=== PATIENT | female | born 1985 | race Caucasian/White ===

== ENCOUNTER 2020-02-21 21:19 | Emergency (ER) | payer OTHER, MEDICAID, SELFPAY ==
[2020-02-21] VITALS (10 sets, daily range): BP systolic 119–149; BP diastolic 78–97; PULSE 99–126; RESP 13–26; TEMP 37.2; O2SAT 96–98
--- NOTE | ~2020-02-21 | XR_ITS ---
EXAMINATION: XR chest 2V EXAM DATE: 02/21/2020 22:40 INDICATION: Shortness of breath. TECHNIQUE: Frontal and lateral projections of the chest obtained and reviewed. Comparison is made to prior examination from 09/06/2018. FINDINGS: There is no focal air space disease. There are no pleural effusions. The cardiothymic herbert houette is normal. There is no pneumothorax. There are no osseous or soft tissue abnormalities in t his skeletally immature patient. Lungs have normal volume. IMPRESSION: No acute cardiopulmonary findings. Reviewed, dictated and finalized at location G.
--- NOTE | 2020-02-21 21:50 | ECG_ITS ---
Measurements Intervals Twining Rate: 129 P: 55 OH: 143 QRS: 30 QRSD: 94 T: 25 QT: 296 QTc: 435 Interpretive Statements SINUS TACHYCARDIA MINIMAL Q WAVES- INF/LAT LEADS BASELINE WANDER- I, III, V4-V6 ABNORMAL ECG Electronically Signed On 02-22-2020 7:17:17 CDT by Armin Zheng D.O.
[2020-02-21 22:07] LABS: Basophils Percent Auto 0.3 % (0.2-1.2); Eosinophils Absolute Auto 0.1 K/mm3 (0-0.3); Eosinophils Percent Auto 1.1 % (0-4.4); Hematocrit 39.9 % (37.0-47.0); Hemoglobin 13.6 g/dL (12.0-15.0); Immature Granulocyte Absolute 0.06 K/mm3 (0.00-0.031); Immature Granulocyte Percent A 0.5 % (0-0.5); Lymphocytes Percent Auto 8.3 % (18.3-44.2); Mean Corpuscular HGB Conc 34.1 g/dl (32-36); Mean Corpuscular Hemoglobin 29.6 pg (26-34); Mean Corpuscular Volume 86.9 fl (80-100); Monocytes Absolute Auto 0.4 K/mm3 (0.1-0.6); Monocytes Percent Auto 3.2 % (2.6-8.5); Neutrophils Absolute Auto 10.5 K/mm3 (1.3-6.7); Neutrophils Percent Auto 86.6 % (45.5-73.1); Platelet Count Result 323 k/mm3 (150-375); Red Blood Count 4.59 M/mm3 (4.2-5.4); Red Cell Distribution Width 13.1 % (11.5-14.5); White Blood Count 12.1 K/mm3 (4.5-10.0)
[2020-02-21 22:25] LABS: Alanine Aminotransferase 22 U/L (4-35); Albumin Level 4.6 g/dL (3.5-5.1); Alkaline Phosphatase 102 U/L (38-126); Aspartate Amino Transferase 22 U/L (14-36); Bilirubin,Total 0.2 mg/dL (0.2-1.3); Blood Urea Nitrogen 11 mg/dL (7-17); Calcium 9.6 mg/dL (8.4-10.2); Carbon Dioxide 20 mmol/L (22-30); Chloride 105 mmol/L (98-107); Estimated CRCL calculation 158 ml/min; Estimated Glomerular Filt Rate > 60; Glucose 143 mg/dL (65-105); Sodium 137 mmol/L (137-145)
[2020-02-21 23:01] LABS: D Dimer < 0.22 ug/mL (<0.48)
[2020-02-21] MEDS: ALBUTEROL SULFATE NEB 2.5 MG/0.5 ML INH 5 MG INHALATION (23:20)
[2020-02-21] MEDS: IPRATROPIUM BR 0.02% INH SOLN 0.5 MG/2.5 ML VIAL INHALATION (23:21)
[2020-02-21] MEDS: predniSONE 20 MG TABLET 60 MG PO (23:29)
[2020-02-21 23:33] LABS: Troponin I < 0.012 ng/mL (0.000-0.034)
--- NOTE | 2020-02-21 23:57 | ED.SOB ---
HPI - SOB/Dyspnea General Chief Complaint: Shortness of Breath/Dyspnea Stated Complaint: sob Time Seen by Provider: 02/21/20 21:22 Source: patient History of Present Illness HPI Narrative: Pt c/o sob, started 4 days ago accompanied by chest tightness. Pt state she has has a h/o ashtma. Denies fever. Exacerbating factors: nothing Relieving factors: nothing Known history of: asthma Treatment prior to arrival: none Related Data Home oxygen amount: none Home Medications Medication Instructions Recorded Confirmed duloxetine 30 mg capsule,delayed 30 mg PO DAILY 09/28/19 09/28/19 release duloxetine 60 mg capsule,delayed 60 mg PO DAILY 09/28/19 09/28/19 release lamotrigine 100 mg tablet 100 mg PO DAILY 09/28/19 09/28/19 modafinil 100 mg tablet 200 mg PO QAM tablet 09/28/19 09/28/19 Allergies Allergy/AdvReac Type Severity Reaction Status Date / Time No Known Allergies Allergy Verified 09/28/19 13:48 Review of Systems Review of Systems: All systems reviewed & are unremarkable except as noted in HPI and below Constitutional: Constitutional: Denies body ache(s), Denies chills, Denies excessive sweating, Denies fatigue, Denies fever(s), Denies headache(s), Denies lethargy, Denies malaise, Denies weakness and Denies weight loss Eyes: Eyes: Denies blurry vision, Denies change in vision and Denies loss of vision ENT: Denies dizziness, Denies ear discharge, Denies headache(s), Denies lip swelling, Denies epistaxis, Denies nasal congestion, Denies neck pain, Denies throat swelling and Denies tongue swelling Cardiovascular: Cardiovascular: Denies chest pain, Denies chest pain at rest, Denies chest pain with activity, Denies diaphoresis, Denies rapid heart rate, Denies edema, Denies irregular heart rhythm, Denies lightheadedness, Denies palpitations, Denies dyspnea and Denies dyspnea on exertion Respiratory: Respiratory: Denies chest congestion, Denies cough and Denies hemoptysis Gastrointestinal: Gastrointestinal: Denies abdominal pain, Denies melena, Denies hematochezia, Denies diarrhea, Denies nausea, Denies vomiting and Denies hematemesis Musculoskeletal: Musculoskeletal: Denies abnormal gait, Denies deformity, Denies joint swelling, Denies limited range of motion, Denies neck pain and Denies numbness Neurologic: Denies Abnormal speech present, Denies abnormal gait, Denies confusion, Denies dizziness, Denies headache(s), Denies focal weakness, Denies loss of vision, Denies numbness, Denies Other visual disturbances, Denies Sensory deficit (Neuro) and Denies weakness Psychiatric: Psychiatric: Denies confusion, Denies depression, Denies auditory hallucinations, Denies homicidal ideation and Denies suicidal ideation Endocrine: Endocrine: Denies cold intolerance, Denies excessive sweating, Denies fatigue, Denies heat intolerance and Denies palpitations Hematologic/Lymphatic: Hematologic/Lymphatic: Denies easy bleeding and Denies easy bruising Allergic/Immunologic: Allergic/Immunologic: Denies lip swelling, Denies throat swelling and Denies tongue swelling PMFSH Past Medical History Medical History (Updated 02/22/20 @ 00:02 by Raza Ceron MD) Acid reflux Anxiety Bipolar 1 disorder Carpal tunnel syndrome Depression Family History Family History (Updated 06/22/14 @ 07:13 by DOCTOR UNKNOWN) Mother Hypertension Grandparent Asthma Cerebrovascular accident Family history of heart disease in male family member before age 55 Social History Social History Smoking status: Former smoker Smoking end date: 10/26/12 Alcohol intake: never Gender identity (if verbalized by the patient): Female Exam Const: General: cooperative, healthy appearing, comfortable, no acute distress, well developed, alert and awake; No confusion Orientation/consciousness: oriented to person, oriented to place, oriented to time, patient oriented x3 and No confusion [place]
[2020-02-22 00:01] VITALS: BP 125/78; PULSE 100
== END 2020-02-22 00:29 | disposition home or self-care (01) ==
PROVIDERS: Emergency Provider Emergency Medicine; PCP Nurse Practitioner Family
DX: J45.901 Unspecified asthma with (acute) exacerbation (principal); Z87.891 Personal history of nicotine dependence; K21.9 Gastro-esophageal reflux disease without esophagitis; F41.9 Anxiety disorder, unspecified; F31.9 Bipolar disorder, unspecified
CPT/HCPCS: 36415; 71046; 80053; 81025; 84484; 85025; 85380; 93005; 94640; 99284; J7512

== ENCOUNTER 2020-08-21 17:15 | Outpatient (RCR) | payer OTHER, SELFPAY ==
--- NOTE | 2020-08-10 09:09 | PTOPEVAL ---
PHYSICAL THERAPY EVALUATION AND PLAN OF CARE 08-10-2020 Thank you for referring Yi Mendiola to [facility], for the diagnosis of low back pain She is scheduled to be seen for therapy?2 x/week for 3 weeks. Please review, sign, date and return this plan of care LIZETT. I agree with and certify that the following plan of care is medically necessary. Referring Physician Date Attending Provider: Janine Montaño NP *PT Outpatient Evaluation Document 08/10/20 08:10 EBONY (Rec: 08/10/20 09:09 EBONY [id number]) Outpatient Past Medical History Past Medical History Source of Past Medical History Patient Neurological History Hx Other Neurological Disorders Yes: headaches every other day ,take meds-over counter Cardiovascular History Hx Cardiac Disorders No Significant History Respiratory History Hx Asthma Yes: allergy related- sensitive to cold weather Gastrointestinal History Hx Gastroesophageal Reflux Disease Yes: upper GI with throat surgery due to scarring Genitourinary History Hx Genitourinary Disorders No Significant History Musculoskeletal History Hx Back Pain Yes: chronic sciatic pain Hx Other Musculoskeletal Disorders Yes: obesity Endocrine History Hx Diabetes Yes: borderline- monitoring, no meds HEENT History Hx HEENT Disorders No Significant History Reproductive History Hx Section Yes: x2 Evaluation Information Problem Diagnosis low back pain Onset January 09, 2020 Subjective Information chronic back pain with Query Text:As Reported By Patient/ sciatica, increased in December, with more standing is worse; no recent injury to back or trauma; Diagnostic Tests X-Rays For This Problem No MRI For This Problem No Other Tests For This Problem No Previous Treatments Previous Treatments For This Problem no PT for back Prior Level of Function Activity Level (Last 3 Months) 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
--- NOTE | 2020-08-17 13:41 | PCPTNOTE ---
pt did not show for today's appt, called pt and left her a voice mail reminder of next appt;
--- NOTE | 2020-08-24 14:25 | PCPTNOTE ---
Patient called & cancelled scheduled appointment this date due to being to busy to make it here today or next visit.
--- NOTE | 2020-08-31 12:49 | PCPTNOTE ---
pt did not show for today's reevaluation; called pt and left voicemail;
--- NOTE | 2020-09-18 08:49 | PCPTNOTE ---
PHYSICAL THERAPY DISCHARGE 09-18-2020 Attending Provider: Janine Montaño NP Patient:Yi Mendiola Date of :1985 Ms. Mendiola has not returned for any further treatments since the PT evaluation on 08/21/2020, therefore she will be discharged at this time. The goals were not addressed. Thank you for referring Yi to [facility]. Please review, sign, date and return this discharge summary LIZETT. I have been updated about the patient's current status and I agree with discharge from the above service at this time. Referring Physician Date
== END 2020-09-18 11:12 | disposition home or self-care (01) ==
LOC: ANHPT 17:15
PROVIDERS: PCP Nurse Practitioner Family; Visit Provider Nurse Practitioner Family
DX: M54.5 Low back pain (principal)
CPT/HCPCS: 97161

== ENCOUNTER 2020-10-12 17:01 | Outpatient (CLI) | payer OTHER, SELFPAY ==
--- NOTE | ~2020-10-12 | XR_ITS ---
EXAMINATION: XR chest 2V 10/12/2020 17:18 INDICATION: Cough and midsternal chest pain PROCEDURE: 2 view chest COMPARISON: Comparison to multiple prior studies sequentially, with oldest reviewed study dated 09/26. FINDINGS: The lungs are clear. The cardiomediastinal silhouette is within normal limits. There are no pleural effusions. There is no pneumothorax suspected. IMPRESSION: 1: NO ACUTE CARDIOPULMONARY DISEASE. Reviewed, dictated and finalized at location A. 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
== END 2020-10-12 17:02 | disposition home or self-care (01) ==
PROVIDERS: PCP Nurse Practitioner Family; Visit Provider Nurse Practitioner Family
DX: R05 Cough (principal)
CPT/HCPCS: 71046

== ENCOUNTER 2021-06-03 10:00 | Outpatient (RCR) | payer OTHER, SELFPAY ==
--- NOTE | 2021-04-26 10:07 | PTOPEVAL ---
Thank you for referring Yi Mendiola to [facility].? The patient is scheduled to be seen for therapy? 1 x/week for 5 weeks. Please review, sign, date and return this plan of care LIZETT. I agree with and certify that the following plan of care is medically necessary. Referring Physician Date Attending Provider: Janine Montaño, [employer] Problem Diagnosis low back pain Onset 1 yr Subjective Information Gradual increase of back pain Query Text:As Reported By Patient/ for the past year. She reports Family increased pain with walking, standing and lifting task. Her tolerance with zigzag stitcher varies. She requires multiple rest due to pain. She has increased pain with yard work as well. Does not perform a walking or stretching program. She is not working. Diagnostic Tests X-Rays For This Problem Yes: mild OA at L4 region Previous Treatments Previous Treatments For This Problem no Pain Assessment Self Report Pain Assessment Lower Back Reported Pain Level 1 Pain Description Cramping,Sharp,Tightness Pain Frequency Chronic,Continuous Lowest Pain Intensity 1 Greatest Pain Intensity 9 Pain Aggravating Factors ADL's,Bending,Exercise/ Activity,Lifting,Walking, Weight Bearing/Standing Cervical and Lumbar ROM Lumbar ROM Lumbar Flexion Active Ankle:Hands to: Lateral Flexion distal thigh [place]:Active Hands to: Lumbar Comments 100% trunk ext tightness with all trunk motion Lower Extremity Range of Motion General Lower Extremity Range of Motion Reason Not Measured WNL/Left,WNL/Right Cervical and Lumbar Muscle Testing Lumbar Strength Upper Abdominal Strength 3 Fair Lower Abdominal Strength 2 Poor Upper Back Extension 3+Fair+ Lower Back Extension 3+Fair+ Lower Extremity Muscle Strength Testing General Lower Extremity Strength Gross Lower Extremity Strength grossly 5/5 except [place] hip abduction: 3+/5 Muscle Length Testing Muscle Length Testing Two-Joint Hip Flexor Shortened Muscles Short (R) Iliopsoas,Short (L) Iliopsoas,Short (R) Rectus Femoris,Short (L) Rectus Femoris,Short (R) Ilial Tib Band,Short (L) Ilial Tib Band Piriformis w/Hip Flexion <90 Degrees (R) Moderate Tightness,(L) Modera
--- NOTE | 2021-05-15 13:42 | PCPTNOTE ---
Patient called & cancelled scheduled appointment this date due to having a Dr's appointment.
--- NOTE | 2021-05-21 13:21 | PCPTNOTE ---
Patient did not show up for scheduled appointment this date. Called and had to leave a message.
--- NOTE | 2021-05-29 12:51 | PCPTNOTE ---
Patient did not show for appointment this date. Patient called on cell phone number [phone]. Voice message left to contact therapy department to try and reschedule appointment.
--- NOTE | 2021-06-03 10:34 | PCPTNOTE ---
Admitting Provider: Attending Provider: Janine Montaño, LINOTYPE MECHANIC Patient:Yi Mendiola Date of :1985 Discharge Note Patient has not returned for any further treatments since 05/08/2021, therefore she will be discharged at this time. Patient?s initial visit was on 04/26/2021 09:00 and she had a total of 2 visits with 4 no show/cancelled visits. The goals have been not met due to limited therapy visits attended. Thank you for referring this patient to [facility]. Please review, sign, date and return this discharge summary LIZETT. I have been updated about the patient's current status and I agree with discharge from the above service at this time. Referring Physician Date
== END 2021-07-10 09:15 | disposition home or self-care (01) ==
LOC: ANHPT 10:00
PROVIDERS: PCP Nurse Practitioner Family; Visit Provider Nurse Practitioner Family
DX: M54.5 Low back pain (principal)
CPT/HCPCS: 97110; 97161

== ENCOUNTER 2021-09-07 13:51 | Emergency (ER) | payer OTHER, SELFPAY ==
[2021-09-07 14:01] VITALS: BP 137/92; PULSE 106; RESP 16; TEMP 37.4; O2SAT 100
--- NOTE | 2021-09-07 14:03 | ED.URI ---
HPI - URI/Sore Throat General Chief Complaint: Upper Respiratory Infection Stated Complaint: Sore Throat Time Seen by Provider: 09/07/21 14:03 Source: patient and RN notes reviewed Mode of arrival: ambulatory Limitations: no limitations History of Present Illness HPI Narrative: Kyung is a 35-year-old female patient who ambulated into the [facility]. Patient states she was treated last , 09/05/2021 for sore throat at another facility. Patient was prescribed prednisone, viscous lidocaine, and ibuprofen 800 mg. Patient states she did not take the ibuprofen 800 mg daily because of her history of heartburn. Patient states her sore throat is better however she has horrible heartburn that is unrelieved with any medication. Patient states she takes an [id number] PPI. Patient states she also uses Pepcid chewables [id number]. Patient states she is sleeps propped up. Patient states she already follows a bland diet MD elicited complaint: other (heartburn) Related Data Home Medications Medication Instructions Recorded Confirmed duloxetine 30 mg capsule,delayed 30 mg PO DAILY 09/28/19 09/28/19 release duloxetine 60 mg capsule,delayed 60 mg PO DAILY 09/28/19 09/28/19 release lamotrigine 100 mg tablet 100 mg PO DAILY 09/28/19 09/28/19 aripiprazole mg 09/07/21 famotidine [Acid Dog Trainer 20 mg PO DAILY 09/07/21 09/07/21 (famotidine)] ibuprofen 09/07/21 lidocaine HCl [Lidocaine Viscous] 09/07/21 prednisone 09/07/21 Allergies Allergy/AdvReac Type Severity Reaction Status Date / Time No Known Allergies Allergy Verified 09/07/21 14:12 Review of Systems Review of Systems: CONSTITUTIONAL: Denies body aches, fever, chills, or sweats. EYES: Denies visual changes, redness, or discharge. ENT: Denies rhinorrhea, congestion,+ sore throat, or otalgia. CARDIOVASCULAR: Denies chest pain, palpitations, or edema. RESPIRATORY: Denies cough or dyspnea. GASTROINTESTINAL: Denies abdominal pain, nausea, vomiting, or diarrhea.+ heartburn GENITOURINARY: Denies dysuria or hematuria. SKIN: Denies rash, itching, or wounds. MUSCULOSKELETAL: Denies back pain, joint pain, or myalgia. NEUROLOGIC: Denies headache, numbness, tingling, or weakness. PSYCH: Denies depression or anxiety. All systems reviewed & are unremarkable except as noted in HPI and below PMFSH Past Medical History Medical History Acid reflux Anxiety Bipolar 1 disorder Carpal tunnel syndrome Depression Family History Family History Mother Hypertension Grandparent Asthma Cerebrovascular accident Family history of heart disease in male family member before age 55 Social History Social History Smoking status: Former smoker Smoking end date: 10/26/12 Alcohol intake: never Gender identity (if verbalized by the patient): Female Comments At time of signature, I have reviewed and agree with nursing past medical, surgical, social and family history unless otherwise noted. Please see nursing chart for further information. There is no relevant family history pertinent to the presenting complaint Exam Narrative: GENERAL: Well-appearing, well-nourished, and in no acute distress. HEAD: Normocephalic, atraumatic. EYES: EOMI. No redness or drainage. Conjunctivae normal. ENT: Mucous membranes pink and moist. Nares clear. No rhinorrhea. TMs normal bilaterally. Posterior pharynx is erythemic with moderate edema. Uvula midline. NECK: Normal AROM. Supple. CHEST: No respiratory distress. MUSCULOSKELETAL: No bony tenderness. EXTREMITIES: Normal range of motion. No edema. SKIN: Warm, dry, no rash. Capillary refill normal. Normal skin turgor. NEURO: No focal deficits. Alert and oriented x3. Gait steady. PSYCH: Normal affect. No signs of depression or anxiety. Course Vital Si
== END 2021-09-07 14:40 | disposition home or self-care (01) ==
PROVIDERS: Emergency Provider Nurse Practitioner Family; PCP Nurse Practitioner Family
DX: K21.9 Gastro-esophageal reflux disease without esophagitis (principal); F31.9 Bipolar disorder, unspecified
CPT/HCPCS: 99211; G0463

== ENCOUNTER 2021-09-23 16:28 | Emergency (ER) | payer OTHER, SELFPAY ==
[2021-09-23 16:49] VITALS: BP 147/96; PULSE 109; RESP 16; TEMP 36.8; O2SAT 98
--- NOTE | 2021-09-23 18:22 | ED.GENADULT ---
HPI - General Adult General Chief complaint: Extremity Injury, Lower Stated complaint: Left Leg Pain Time Seen by Provider: 09/23/21 18:12 Source: patient and RN notes reviewed Mode of arrival: ambulatory Limitations: no limitations History of Present Illness HPI narrative: Patient presents today complaining of a wound to her left lower leg x1 week. Patient sees wound care at [facility] for the past several months for a large wound to her left lower leg that she dresses daily, but a new smaller area has popped up below her chronic wound and is very painful and reddened. The base to her chronic wound has gone from a beefy red to a yellow color and she has become alarmed and wanted to come in for evaluation. She could not get into see wound care until October 11. MD complaint: Wound Related Data Home Medications Medication Instructions Recorded Confirmed duloxetine 30 mg capsule,delayed 30 mg PO DAILY 09/28/19 09/28/19 release duloxetine 60 mg capsule,delayed 60 mg PO DAILY 09/28/19 09/28/19 release lamotrigine 100 mg tablet 100 mg PO DAILY 09/28/19 09/28/19 aripiprazole mg 09/07/21 famotidine [Acid Manager Travel 20 mg PO DAILY 09/07/21 09/07/21 (famotidine)] Allergies Allergy/AdvReac Type Severity Reaction Status Date / Time No Known Allergies Allergy Verified 09/07/21 14:12 Review of Systems Review of Systems: CONSTITUTIONAL: Denies body aches, fever, chills, or sweats. EYES: Denies visual changes, redness, or discharge. ENT: Denies rhinorrhea, congestion, sore throat, or otalgia. CARDIOVASCULAR: Denies chest pain, palpitations, or edema. RESPIRATORY: Denies cough or dyspnea. GASTROINTESTINAL: Denies abdominal pain, nausea, vomiting, or diarrhea. GENITOURINARY: Denies dysuria or hematuria. SKIN: Denies rash, itching. + Wound to left lower leg MUSCULOSKELETAL: Denies back pain, joint pain, or myalgia. NEUROLOGIC: Denies headache, numbness, tingling, or weakness. PSYCH: Denies depression or anxiety. [facility] Past Medical History Medical History Acid reflux Anxiety Bipolar 1 disorder Carpal tunnel syndrome Depression Family History Family History Mother Hypertension Grandparent Asthma Cerebrovascular accident Family history of heart disease in male family member before age 55 Social History Social History Smoking status: Former smoker Smoking end date: 10/26/12 Alcohol intake: never Gender identity (if verbalized by the patient): Female Comments At time of signature, I have reviewed and agree with nursing past medical, surgical, social and family history unless otherwise noted. Please see nursing chart for further information. There is no relevant family history pertinent to the presenting complaint Exam Narrative: GENERAL: Well-appearing, well-nourished, and in no acute distress. HEAD: Normocephalic, atraumatic. EYES: EOMI. No redness or drainage. Conjunctivae normal. ENT: Mucous membranes pink and moist. NECK: Normal AROM. CHEST: No respiratory distress. EXTREMITIES: Left lower leg: Chronic wound is 7 x 3 cm. It is mostly dry with an erythematous base that has some yellow purulent drainage. Distal to this chronic wound there is a 1 cm round erythematous wound that is very tender to palpation. SKIN: Warm, dry, no rash. Capillary refill normal. Normal skin turgor. NEURO: No focal deficits. Alert and oriented x3. Gait steady. PSYCH: Normal affect. No signs of depression or anxiety. Course Vital Signs Vital signs: Vital Signs Temperature 98.3 F 09/23/21 16:49 Pulse Rate 109 H 09/23/21 16:49 Respiratory Rate 16 09/23/21 16:49 Pulse Oximetry 98 09/23/21 16:49 Temperature 98.3 F 09/23/21 16:49 Pulse Rate 109 H 09/23/21 16:49 Respiratory Rate 16 09/23/21 16:49
== END 2021-09-23 18:29 | disposition home or self-care (01) ==
PROVIDERS: Emergency Provider Nurse Practitioner; PCP Nurse Practitioner Family
DX: S81.802A Unspecified open wound, left lower leg, initial encounter (principal); X58.XXXA Exposure to other specified factors, initial encounter; B99.9 Unspecified infectious disease; K21.9 Gastro-esophageal reflux disease without esophagitis; F31.9 Bipolar disorder, unspecified
CPT/HCPCS: 99213; G0463

== ENCOUNTER 2021-11-29 00:33 | Day surgery (SDC) | payer OTHER, SELFPAY ==
[2021-11-19 12:27] VITALS: BMI 50.8
--- NOTE | 2021-11-28 16:40 | P.PNAN_ITS ---
Anes - Eval Pre Procedure Procedure: Operation Date: 11/29/21 10:00 Proposed Procedures p Esophagogastroduodenoscopy - Joaquín Nieves MD Date/Time: 11/28/21 16:40 Pre Op Diagnosis: GERD, dysphagia Patient Data Age: 36 Gender: F Height: 1.65 m Weight: 138.5 kg Allergies Allergy/AdvReac Type Severity Reaction Status Date / Time No Known Allergies Allergy Verified 10/08/21 09:30 Home Medications Medication Instructions Recorded Confirmed Type duloxetine 60 mg capsule,delayed 60 mg PO DAILY 09/28/19 11/19/21 History release lamotrigine 100 mg tablet 100 mg PO DAILY 09/28/19 11/19/21 History famotidine [Acid Communications Assistant 20 mg PO DAILY 09/07/21 11/19/21 History (famotidine)] albuterol sulfate 90 mcg/actuation 1 puff INHALATION Q4H PRN 10/08/21 11/19/21 History aerosol inhaler esomeprazole magnesium 20 mg 20 mg PO BID cap 10/08/21 11/19/21 History capsule,delayed release Patient hx anesthesia problems: none Family hx anesthesia problems: none Results Review: All pre-operative results and documents have been reviewed as part of the pre-operative evaluation. [facility] Past Medical History Medical History Acid reflux Anxiety Bipolar 1 disorder Borderline diabetic Carpal tunnel syndrome Depression Former tobacco use Marijuana abuse Morbid obesity NIDHI (obstructive sleep apnea) Family History Family History Mother Hypertension Grandparent Asthma Cerebrovascular accident Family history of heart disease in male family member before age 55 Social History Social History Smoking packs per day: 1.5 Smoking cigarettes per day: 30.0 Years smoked: 15 Smoking pack-years: 22.50 Smoking status: Former smoker Tobacco type: e-cigarettes/vaping Smoking end date: 10/26/12 Alcohol intake: current Alcohol use details: FEW DRINKS ONCE MONTHLY Substance use: current Substance use type: marijuana Other substance usage details: USES 3 TIMES/WEEK Living arrangements: with family Gender identity (if verbalized by the patient): Female Spiritual care concerns: No Agree to blood products: Yes Exam Day of Procedure 11/28/21 16:40 Patient weight: super morbidly obese
[2021-11-29 09:10] VITALS: BP 140/86; PULSE 108; RESP 20; TEMP 36.7; O2SAT 98; BMI 49.5
[2021-11-29] MEDS: LACTATED RINGERS 1,000 ML 150 ML IV CONT (09:27)
--- NOTE | 2021-11-29 09:39 | WPDANESEFPP ---
Anes - Eval Final PreProcedure Day of Procedure 11/29/21 09:39 Patient weight: morbidly obese Heart: regular rate and rhythm Lungs: clear to auscultation Airway: Mallampati scale class II Neurological: alert and oriented Last oral intake: >/= 8 hours ASA classification: III Emergent: no Anesthetic plan: proceed Anesthesia type and monitoring: general GIVS and standard monitoring Results Review: All pre-operative results and documents have been reviewed as part of the pre-operative evaluation. Informed Consent: The patient's anesthetic plan and its attendant risks and benefits were discussed with the patient/family/POA. Questions were solicited and answers provided to the satisfaction of the patient/family/POA.
--- NOTE | 2021-11-29 09:47 | PM.HPGS ---
History of Present Illness History of Present Illness Consent: Risks, benefits, and alternatives have been discussed and questions answered. Patient agrees to proceed with procedure. Chief complaint: GERD, dysphagia Narrative: Yi Mendiola is a 36 year old female with gerd on nexium bid and famotidine as needed, sometimes with dysphagia to solids, she had dilation in the past. Review of Systems Constitutional: Constitutional: Denies headache(s) and Denies weakness Eyes: Eyes: Denies blurry vision ENT: Reports Normal hearing present, Denies headache(s) and Denies neck pain Cardiovascular: Cardiovascular: Denies chest pain and Denies dyspnea Respiratory: Respiratory: Denies dyspnea Gastrointestinal: Gastrointestinal: Reports no additional gastrointestinal complaints Genitourinary: Genitourinary: Denies dysuria Musculoskeletal: Musculoskeletal: Denies neck pain Integumentary/Breasts: Skin/Breast: Denies dry skin Neurologic: Reports Normal hearing present, Denies headache(s) and Denies weakness Psychiatric: Psychiatric: Denies anxiety Endocrine: Endocrine: Denies change in body appearance Hematologic/Lymphatic: Hematologic/Lymphatic: Denies easy bleeding Allergic/Immunologic: Allergic/Immunologic: Denies urticaria PMF Past Medical History Medical History (Updated 11/29/21 @ 09:48 by Joaquín Nieves MD) Acid reflux Anxiety Bipolar 1 disorder Borderline diabetic Carpal tunnel syndrome Depression Dysphagia Former tobacco use Marijuana abuse Morbid obesity NIDHI (obstructive sleep apnea) Family History Family History Mother Hypertension Grandparent Asthma Cerebrovascular accident Family history of heart disease in male family member before age 55 Social History Social History Smoking packs per day: 1.5 Smoking cigarettes per day: 30.0 Years smoked: 15 Smoking pack-years: 22.50 Smoking status: Former smoker Tobacco type: e-cigarettes/vaping Smoking end date: 10/26/12 Alcohol intake: current Alcohol use details: FEW DRINKS ONCE MONTHLY Substance use: current Substance use type: marijuana Other substance usage details: USES 3 TIMES/WEEK Living arrangements: with family Gender identity (if verbalized by the patient): Female Spiritual care concerns: No Agree to blood products: Yes Meds Home Medications and Allergies Home Medications Medication Instructions Recorded Confirmed Type duloxetine 60 mg capsule,delayed 60 mg PO DAILY 09/28/19 11/29/21 History release lamotrigine 100 mg tablet 100 mg PO DAILY 09/28/19 11/29/21 History famotidine [Acid Commercial Teller 20 mg PO DAILY 09/07/21 11/29/21 History (famotidine)] albuterol sulfate 90 mcg/actuation 1 puff INHALATION Q4H PRN 10/08/21 11/29/21 History aerosol inhaler esomeprazole magnesium 20 mg 20 mg PO BID cap 10/08/21 11/29/21 History capsule,delayed release Allergies Allergy/AdvReac Type Severity Reaction Status Date / Time No Known Allergies Allergy Verified 11/29/21 09:17 Vital Signs Vital Signs - 24 hr 11/29/21 09:10 Temperature 98.0 F Pulse Rate 108 H Respiratory Rate 20 Blood Pressure 140/86 Pulse Oximetry 98 Exam Const: General: comfortable and no acute distress HENMT: General nose exam: Normal nares present Eyes: General: appearance normal, both eyes and all related structures Neck: Neck: no JVD Resp: Auscultation: clear to auscultation bilaterally Cardio: Rate: regular rate Rhythm: regular rhythm GI: Inspection: non-distended GI Palp: Yes Soft to palpation Skin: General skin exam: normal color Neuro: General: gait normal Speech: normal speech Extrem: General: normal to inspection Psych: Mental Status: mental status grossly normal Assessment and Plan Assessment and plan (1) Dysphagia: Code(s): R13.10 - Dysphag
[2021-11-29 10:08] VITALS: BP 120/80; PULSE 82; RESP 16; O2SAT 99
[2021-11-29 10:18] VITALS: BP 119/76; PULSE 83; RESP 16; O2SAT 99
[2021-11-29 10:28] VITALS: BP 112/77; PULSE 82; RESP 16; O2SAT 99
== END 2021-11-29 10:58 | disposition home or self-care (01) ==
PROVIDERS: PCP Nurse Practitioner Family; Visit Provider Internal Medicine Gastroenterology
PROC: 0DJ08ZZ Inspection of Upper Intestinal Tract, Via Natural or Artificial Opening Endoscopic (ICD-10-PCS; CPT 43235; principal; 2021-11-29 10:00)
DX: K21.00 Gastro-esophageal reflux disease with esophagitis, without bleeding (principal); K44.9 Diaphragmatic hernia without obstruction or gangrene; K22.2 Esophageal obstruction; K22.10 Ulcer of esophagus without bleeding; G47.33 Obstructive sleep apnea (adult) (pediatric); F31.9 Bipolar disorder, unspecified; F41.9 Anxiety disorder, unspecified; R73.03 Prediabetes; Z79.51 Long term (current) use of inhaled steroids; F12.90 Cannabis use, unspecified, uncomplicated; Z87.891 Personal history of nicotine dependence; E66.01 Morbid (severe) obesity due to excess calories; Z68.42 Body mass index [BMI] 45.0-49.9, adult
CPT/HCPCS: 43239; 43249; 88305; C1726; J2704; J7120

== ENCOUNTER 2022-11-04 22:12 | Emergency (ER) | payer OTHER, SELFPAY ==
--- NOTE | ~2022-11-04 | XR_ITS ---
EXAMINATION: XR chest 2V Exam Date/Time: 11/04/2022 22:32 FACE WORKER HISTORY: CP 1 WEEK, HAPPENED AROUND VIVIAN WELL GETTING WORSE Comparison: 10/12/2020. RESULT: Lines, tubes, and devices: None. Lungs and pleura: Slightly low lung volumes with mild crowding, otherwise clear. Cardiomediastinal silhouette: Stable. Other: No acute osseous or upper abdominal finding. IMPRESSION: No acute cardiopulmonary process. Reviewed, dictated and finalized at location K. WORKER
[2022-11-04 22:28] VITALS: BP 148/101; PULSE 115; RESP 16; TEMP 36.3; O2SAT 98
--- NOTE | 2022-11-04 22:31 | ECG_ITS ---
Measurements Intervals [place] Rate: 112 P: 53 [place]: 155 QRS: 35 QRSD: 105 T: 30 QT: 335 QTc: 458 Interpretive Statements SINUS TACHYCARDIA ABNORMAL ECG COMPARED TO ECG 02/21/2020 21:26:50 NO SIGNIFICANT CHANGES Electronically Signed On 11-05-2022 7:55:09 SCENE AND LIGHTING DESIGN LECTURER by Armin Zheng D.O.
[2022-11-04 23:24] LABS: Basophils Absolute Auto 0.1 K/mm3 (0.0-0.1); Basophils Percent Auto 0.6 % (0.2-1.2); Eosinophils Absolute Auto 0.4 K/mm3 (0-0.3); Eosinophils Percent Auto 3.4 % (0-4.4); Hematocrit 38.1 % (37.0-47.0); Hemoglobin 12.3 g/dL (12.0-15.0); Immature Granulocyte Absolute 0.03 K/mm3 (0.00-0.031); Immature Granulocyte Percent A 0.3 % (0-0.5); Lymphocytes Absolute Auto 1.93 K/mm3 (0.9-3.2); Mean Corpuscular HGB Conc 32.3 g/dl (32-36); Mean Corpuscular Hemoglobin 29.3 pg (26-34); Mean Corpuscular Volume 90.7 fl (80-100); Mean Platelet Volume 8.7 fl (7.4-10.4); Monocytes Percent Auto 8.9 % (2.6-8.5); Neutrophils Absolute Auto 7.4 K/mm3 (1.3-6.7); Neutrophils Percent Auto 68.8 % (45.5-73.1); Platelet Count Result 275 k/mm3 (150-375); Red Cell Distribution Width 13.5 % (11.5-14.5); White Blood Count 10.7 K/mm3 (4.5-10.0)
[2022-11-04 23:36] LABS: Partial Thromboplastin Time 30.2 SECONDS (22.3-36.8); Prothrombin Time 12.4 Seconds (11.1-14.7)
[2022-11-04 23:40] LABS: Alanine Aminotransferase 17 U/L (6-35); Albumin Level 4.1 g/dL (3.5-5.1); Alkaline Phosphatase 95 U/L (38-126); Anion Gap 6 mmol/L (8-16); Aspartate Amino Transferase 23 U/L (14-36); Bilirubin,Total 0.3 mg/dL (0.2-1.3); Blood Urea Nitrogen 12 mg/dL (7-17); Calcium 8.8 mg/dL (8.4-10.2); Carbon Dioxide 28 mmol/L (22-30); Chloride 103 mmol/L (98-107); Estimated CRCL calculation 139 ml/min; Estimated Glomerular Filt Rate > 60; Glucose 162 mg/dL (65-110); Lipase 54 U/L (23-300); Potassium 3.6 mmol/L (3.4-5.0); Sodium 137 mmol/L (137-145)
[2022-11-04 23:45] LABS: Troponin I < 0.012 ng/mL (0.000-0.034)
[2022-11-04 23:56] LABS: D Dimer 0.45 ug/mL (<0.48)
--- NOTE | 2022-11-05 00:13 | ED.CHESTPAIN ---
HPI - Chest Pain General Chief Complaint: Chest Pain Stated Complaint: chest pain Time Seen by Provider: 11/04/22 22:56 Source: patient Mode of arrival: ambulatory Limitations: no limitations History of Present Illness HPI narrative: Patient is a 36-year-old female with past medical history of bipolar disorder, GERD, and sleep apnea who presented today with chest tightness that began at 9 AM. For the past 2 weeks, the patient has had episodes of palpitations and dizziness that usually resolve on their own after a few minutes. Today she had another episode that had associated 3 out of 10 chest pain that radiated through to her back. She initially thought this was heartburn and took Gas-X which helped somewhat. The pain did not radiate to her jaw or arm. Denies shortness of breath, abdominal pain, headaches, calf swelling, recent travel. 1 month ago she weaned off of Wellbutrin. She denies any recent anxiety or life stressors. No tobacco, alcohol, drug use. Related Data Home Medications Medication Instructions Recorded Confirmed duloxetine 60 mg capsule,delayed 60 mg PO DAILY 09/28/19 11/29/21 release lamotrigine 100 mg tablet 100 mg PO DAILY 09/28/19 11/29/21 famotidine 20 mg tablet (Acid 20 mg PO DAILY 09/07/21 11/29/21 Buckle Strap Puncher (famotidine)) albuterol sulfate 90 mcg/actuation 1 puff inhalation Q4H PRN Allergy 10/08/21 11/29/21 aerosol inhaler Symptoms esomeprazole magnesium 20 mg 20 mg PO BID 10/08/21 11/29/21 capsule,delayed release Allergies Allergy/AdvReac Type Severity Reaction Status Date / Time No Known Allergies Allergy Verified 11/04/22 22:31 Review of Systems Review of Systems: All systems reviewed & are unremarkable except as noted in HPI and below Constitutional: Constitutional: Reports no additional constitutional complaints Eyes: Eyes: Reports no additional eye complaints ENT: Reports system reviewed and no additional complaints, except as documented Cardiovascular: Cardiovascular: Reports as per HPI Respiratory: Respiratory: Reports no additional respiratory complaints Gastrointestinal: Gastrointestinal: Reports no additional gastrointestinal complaints Musculoskeletal: Musculoskeletal: Reports no additional musculoskeletal complaints Integumentary/Breasts: Skin/Breast: Reports system reviewed and no additional complaints, except as docu Neurologic: Reports system reviewed and no additional complaints, except as documented [facility] Past Medical History Medical History Acid reflux Anxiety Bipolar 1 disorder Borderline diabetic Carpal tunnel syndrome Depression Dysphagia Former tobacco use Marijuana abuse Morbid obesity NIDHI (obstructive sleep apnea) Family History Family History Mother Hypertension Grandparent Asthma Cerebrovascular accident Family history of heart disease in male family member before age 55 Social History Social History Smoking packs per day: 1.5 Smoking cigarettes per day: 30.0 Years smoked: 15 Smoking pack-years: 22.50 Smoking status: Former smoker Tobacco type: e-cigarettes/vaping Smoking end date: 10/26/12 Alcohol intake: current Alcohol use details: FEW DRINKS ONCE MONTHLY Substance use: current Substance use type: marijuana Other substance usage details: USES 3 TIMES/WEEK Gender identity (if verbalized by the patient): Female Spiritual care concerns: No Agree to blood products: Yes Exam Narrative: GENERAL: Well-appearing, obese, and in no acute distress. HEAD: Normocephalic, atraumatic. EYES: PERRLA and EOMI.. NECK: Supple. CHEST: Clear to auscultation. No respiratory distress. HEART: Regular rate and rhythm. No murmur heard. Normal peripheral pulses. ABDOMEN: Soft, nontender, nondistended, normal active bowel sounds. EXTREMITIES: Normal range o
[2022-11-05 00:41] VITALS: BP 110/76; PULSE 96; RESP 16; O2SAT 98
== END 2022-11-05 00:43 | disposition home or self-care (01) ==
PROVIDERS: Emergency Provider Family Medicine; PCP Nurse Practitioner Family
DX: R07.9 Chest pain, unspecified (principal); R00.0 Tachycardia, unspecified; F41.9 Anxiety disorder, unspecified; F31.9 Bipolar disorder, unspecified
CPT/HCPCS: 36415; 71046; 80053; 83690; 84484; 85025; 85380; 85610; 85730; 93005; 99284

== ENCOUNTER 2023-02-09 09:28 | Emergency (ER) | payer OTHER, SELFPAY ==
[2023-02-09 09:52] VITALS: BP 129/84; PULSE 99; RESP 16; TEMP 37.3; O2SAT 99
--- NOTE | 2023-02-09 10:21 | ED.BACK ---
HPI - Back Pain/Injury General Chief Complaint: Urogenital-Female Stated Complaint: Lower Back Pain/UTI Time Seen by Provider: 02/09/23 10:10 Source: patient Mode of arrival: ambulatory Limitations: no limitations History of Present Illness HPI Narrative: Patient presents today complaining of a 2 day history of bilateral low back pain and believes that she may have a UTI related to the location of her back pain. Denies any back injury, heavy lifting. Denies any urinary symptoms to include dysuria, hematuria, urgency or frequency. Denies radiation of her pain, numbness or tingling in the extremities or genitalia, loss of bowel or bladder control. She currently rates her pain 7/10 with standing or walking. She has been trying Tylenol without relief. Related Data Home Medications Medication Instructions Recorded Confirmed duloxetine 60 mg capsule,delayed 60 mg PO DAILY 09/28/19 02/09/23 release lamotrigine 100 mg tablet 100 mg PO DAILY 09/28/19 02/09/23 albuterol sulfate 90 mcg/actuation 1 puff inhalation Q4H PRN Allergy 10/08/21 02/09/23 aerosol inhaler Symptoms esomeprazole magnesium 20 mg 20 mg PO BID 10/08/21 02/09/23 capsule,delayed release Allergies Allergy/AdvReac Type Severity Reaction Status Date / Time No Known Allergies Allergy Verified 02/09/23 09:59 Review of Systems Review of Systems: CONSTITUTIONAL: Denies body aches, fever, chills, or sweats. EYES: Denies visual changes, redness, or discharge. ENT: Denies rhinorrhea, congestion, sore throat, or otalgia. CARDIOVASCULAR: Denies chest pain, palpitations, or edema. RESPIRATORY: Denies cough or dyspnea. GASTROINTESTINAL: Denies abdominal pain, nausea, vomiting, or diarrhea. GENITOURINARY: Denies dysuria or hematuria. SKIN: Denies rash, itching, or wounds. MUSCULOSKELETAL: Denies joint pain, or myalgia.+ back pain NEUROLOGIC: Denies headache, numbness, tingling, or weakness. PSYCH: Denies depression or anxiety. [facility] Past Medical History Medical History Acid reflux Anxiety Bipolar 1 disorder Borderline diabetic Carpal tunnel syndrome Depression Dysphagia Former tobacco use Marijuana abuse Morbid obesity NIDHI (obstructive sleep apnea) Family History Family History Mother Hypertension Grandparent Asthma Cerebrovascular accident Family history of heart disease in male family member before age 55 Social History Social History Smoking packs per day: 1.5 Smoking cigarettes per day: 30.0 Years smoked: 15 Smoking pack-years: 22.50 Smoking status: Former smoker Tobacco type: e-cigarettes/vaping Smoking end date: 10/26/12 Alcohol intake: current Alcohol use details: FEW DRINKS ONCE MONTHLY Substance use: current Substance use type: marijuana Other substance usage details: USES 3 TIMES/WEEK Living arrangements: with family Gender identity (if verbalized by the patient): Female Spiritual care concerns: No Agree to blood products: Yes Comments At time of signature, I have reviewed and agree with nursing past medical, surgical, social and family history unless otherwise noted. Please see nursing chart for further information. There is no relevant family history pertinent to the presenting complaint Exam Narrative: GENERAL: Well-appearing, well-nourished, and in no acute distress. HEAD: Normocephalic, atraumatic. EYES: EOMI. No redness or drainage. Conjunctivae normal. ENT: Mucous membranes pink and moist. NECK: Normal AROM. CHEST: No respiratory distress. MUSCULOSKELETAL: No bony tenderness of the spine. Bilateral lumbar paraspinal muscle tenderness, right greater than left. No SI joint tenderness. Distal sensation intact. Saddle sensation intact. Capillary refill normal. Pedal pulses normal. Foot push and pu
== END 2023-02-09 10:29 | disposition home or self-care (01) ==
PROVIDERS: Emergency Provider Nurse Practitioner; PCP Nurse Practitioner Family
DX: S39.012A Strain of muscle, fascia and tendon of lower back, initial encounter (principal); X58.XXXA Exposure to other specified factors, initial encounter; K21.9 Gastro-esophageal reflux disease without esophagitis; E66.01 Morbid (severe) obesity due to excess calories; Z68.43 Body mass index [BMI] 50.0-59.9, adult; F17.290 Nicotine dependence, other tobacco product, uncomplicated; F12.90 Cannabis use, unspecified, uncomplicated; F31.9 Bipolar disorder, unspecified
CPT/HCPCS: 81003; 99213; G0463

== ENCOUNTER 2024-08-08 19:32 | Emergency (ER) | payer OTHER, SELFPAY ==
--- NOTE | 2024-08-08 19:38 | ED.URI ---
HPI - URI/Sore Throat General Chief Complaint: Upper Respiratory Infection Stated Complaint: cough,dizzy, low O2 stats ,asthmatic Time Seen by Provider: 08/08/24 19:40 Source: patient, RN notes reviewed and old records reviewed Mode of arrival: ambulatory Limitations: no limitations History of Present Illness HPI Narrative: 38-year-old female presents to the [facility] with complaints of cough, history asthma. Patient reports URI symptoms for over week. States that she started using her albuterol today, used her nebulizer and MDI 1 time each today, states she did not get much improvement Patient denies any fevers. Denies chest pain. Related Data Home Medications Medication Instructions Recorded Confirmed duloxetine 60 mg capsule,delayed 60 mg PO DAILY 09/28/19 02/09/23 release lamotrigine 100 mg tablet 100 mg PO DAILY 09/28/19 02/09/23 albuterol sulfate 90 mcg/actuation 1 puff inhalation Q4H PRN Allergy 10/08/21 02/09/23 aerosol inhaler Symptoms esomeprazole magnesium 20 mg 20 mg PO BID 10/08/21 02/09/23 capsule,delayed release Allergies Allergy/AdvReac Type Severity Reaction Status Date / Time No Known Allergies Allergy Verified 08/08/24 19:47 Review of Systems Review of Systems: All systems reviewed & are unremarkable except as noted in HPI and below Constitutional: Constitutional: Reports no additional constitutional complaints Eyes: Eyes: Reports no additional eye complaints ENT: Reports system reviewed and no additional complaints, except as documented Cardiovascular: Cardiovascular: Reports no additional cardiovascular complaints, Denies chest pain and Denies dyspnea Respiratory: Respiratory: Reports as per HPI, Denies chest congestion, Reports cough and Reports dyspnea Gastrointestinal: Gastrointestinal: Reports no additional gastrointestinal complaints, Denies abdominal pain, Denies nausea and Denies vomiting Musculoskeletal: Musculoskeletal: Reports no additional musculoskeletal complaints Integumentary/Breasts: Skin/Breast: Reports system reviewed and no additional complaints, except as docu Neurologic: Reports system reviewed and no additional complaints, except as documented Psychiatric: Psychiatric: Reports no additional psychiatric complaints Allergic/Immunologic: Allergic/Immunologic: Reports no additional allergic/immunologic complaints PMFSH Past Medical History Medical History Acid reflux Anxiety Bipolar 1 disorder Borderline diabetic Carpal tunnel syndrome Depression Dysphagia Former tobacco use Marijuana abuse Morbid obesity NIDHI (obstructive sleep apnea) Family History Family History Mother Hypertension Grandparent Asthma Cerebrovascular accident Family history of heart disease in male family member before age 55 Social History Social History Smoking packs per day: 1.5 Smoking cigarettes per day: 30.0 Years smoked: 15 Smoking pack-years: 22.50 Smoking status: Former smoker Tobacco type: e-cigarettes/vaping Smoking end date: 10/26/12 Alcohol intake: current Alcohol use details: FEW DRINKS ONCE MONTHLY Substance use: current Substance use type: marijuana Other substance usage details: USES 3 TIMES/WEEK Living arrangements: with family Gender identity (if verbalized by the patient): Female Spiritual care concerns: No Agree to blood products: Yes Comments At the time of my signature, I reviewed and agree with the nursing past medical, surgical, social, and family history. There is no relevant family history pertinent to the patient complaint. Exam Const: General: cooperative, healthy appearing, comfortable, no acute distress, well developed, alert and well nourished Nutritional Appearance: well nourished and obese morbidly obese Orientation/consc
[2024-08-08 19:43] VITALS: BP 153/97; PULSE 104; RESP 16; TEMP 37.3; O2SAT 99
[2024-08-08 19:45] VITALS: O2SAT 98
== END 2024-08-08 20:03 | disposition home or self-care (01) ==
PROVIDERS: Emergency Provider Nurse Practitioner
DX: J40 Bronchitis, not specified as acute or chronic (principal); J45.909 Unspecified asthma, uncomplicated; K21.9 Gastro-esophageal reflux disease without esophagitis; F31.9 Bipolar disorder, unspecified; E66.01 Morbid (severe) obesity due to excess calories; Z68.43 Body mass index [BMI] 50.0-59.9, adult; F12.90 Cannabis use, unspecified, uncomplicated
CPT/HCPCS: 99213; G0463

== ENCOUNTER 2024-09-01 18:59 | Observation (INO) | payer OTHER, SELFPAY ==
[2024-09-01] VITALS (20 sets, daily range): BP systolic 144–169; BP diastolic 82–99; PULSE 87–112; RESP 13–22; TEMP 36.8–36.9; O2SAT 89–99
--- NOTE | ~2024-09-01 | CT_ITS ---
EXAMINATION: CTA chest PE protocol Examination is markedly limited by bolus timing and motion artifact DATE: 09/01/2024 21:56 INTERNET SALES CONSULTANT INDICATION: TECHNIQUE: Computed tomographic angiography (CTA) of the chest was performed with 100 mL Omnipaque-35 0 intravenous contrast. The dose-length product was 997.04 mGy-cm. Maximum intensity projection 3D-re constructions of the aorta and other arteries were constructed by the technologist on a separate work station. COMPARISON: None. FINDINGS: No filling defect is identified within the main or proximal pulmonary arteries. Possible filling defects are identified within the following segmental arteries: Left anterior segmental artery (axial series image 92; coronal series, image 89) Left posterior segmental artery (axial series image 100; coronal series image 96). Left superior segmental artery (axial series, image 106; coronal series, image 93). No discrete filling defects are identified within the right hemithorax. The heart is of normal size, without pericardial effusion. Diffuse multifocal groundglass opacities and consolidation within primarily a bibasilar distribution. These are of varying sizes and shapes, some with a reversed halo sign. The pattern within the remainder of the lungs suggests a hypersensitivity pneumonitis (with tree-in-b ud pattern), Bilateral hilar lymphadenopathy is also present. Within the upper abdomen. The gallbladder is decompressed. No stones are present within the bilateral kidneys. Bilateral adrenal glands are unremarkable. IMPRESSION: Scattered small filling defects within 3 separate segmental arteries of the left chest, possibly finn factual given the limitations of this study. Additional findings suggesting inflammatory (with infectious etiology less likely) pulmonary parenchy mal disease with a primarily bibasilar distribution, sometimes seen with vaping injury for which clin ical correlation is needed. Bilateral hilar lymphadenopathy is also noted. Reviewed, dictated and finalized at location A. RNET SALES CONSULTANT IMPRESSION: Scattered small filling defects within 3 separate segmental arteries of the lef t chest, possibly artifactual given the limitations of this study. Additional findings suggesting inflammatory (with infectious etiology less like ly) pulmonary parenchymal disease with a primarily bibasilar distribution, some times seen with vaping injury for which clinical correlation is needed. Bilateral hilar lymphadenopathy is also noted.
--- NOTE | ~2024-09-01 | US_ITS ---
EXAMINATION: US venous doppler [facility] DATE: 09/02/2024 15:55 INDICATION: Pulmonary embolus TECHNIQUE: Grayscale ultrasound images without and with compression and Doppler ultrasound images of the bilateral lower extremity veins were obtained. COMPARISON: None. FINDINGS: The visualized portions of right common femoral vein, profunda (deep) femoral vein, femoral vein, pop liteal vein, peroneal veins, posterior tibial veins, and greater saphenous vein outflow are patent. The visualized portions of left common femoral vein, profunda femoral vein, femoral vein, popliteal v ein, peroneal veins, posterior tibial veins, and greater saphenous vein outflow are patent. IMPRESSION: 1. No deep venous thrombosis within the bilateral lower extremities. Reviewed, dictated and finalized at location A. MOTIVE MACHINIST APPRENTICE
--- NOTE | 2024-09-01 20:06 | ECG_ITS ---
Test Date: 2024-09-01 21:07:03 Measurements Intervals [place] Rate: 93 P: 50 [place]: 165 QRS: 44 QRSD: 104 T: 34 QT: 349 QTc: 435 Interpretive Statements SINUS RHYTHM MINIMAL Q WAVES- INFERIOR LEADS BASELINE ARTIFACT- III BORDERLINE ECG No previous ECG available for comparison Electronically Signed On 09-02-2024 06:19:38 TRAVOGRAPH OPERATOR by Armin Zheng D.O.
--- NOTE | 2024-09-01 20:07 | ED_ITS ---
HPI - Asthma General Chief Complaint: Asthma <Juliane Moe PA-C - Last Filed: 09/01/24 23:15> Stated Complaint: asthma attack x days <PHILLIP Manning Last Filed: 09/01/24 23:15> Time Seen by Provider: 09/01/24 19:54 <PHILLIP Manning Last Filed: 09/01/24 23:15> Source: patient <PHILLIP Manning Last Filed: 09/01/24 23:15> Mode of arrival: ambulatory <PHILLIP Manning Last Filed: 09/01/24 23:15> Limitations: no limitations <PHILLIP Manning Last Filed: 09/01/24 23:15> History of Present Illness HPI Narrative: This is a 38-year-old female that presents to the emergency department for asthma flare. Reports she has been struggling with a cold over the last several weeks. She was diagnosed with bronchitis and started on doxycycline and a steroid. She did not finish these as prescribed. Reports she has been using the albuterol inhaler and nebulizer treatment with little relief. She has felt short of breath, tight and has had wheezing. Reports chills. Reports a cough. Denies fevers. <Juliane Moe PA-C - Last Filed: 09/01/24 23:15> Related Data Home Medications: Home Medications Medication Instructions Recorded Confirmed duloxetine 60 mg capsule,delayed 60 mg PO DAILY 09/28/19 02/09/23 release lamotrigine 100 mg tablet 100 mg PO DAILY 09/28/19 02/09/23 albuterol sulfate 90 mcg/actuation 1 puff inhalation Q4H PRN Allergy 10/08/21 02/09/23 aerosol inhaler Symptoms esomeprazole magnesium 20 mg 20 mg PO BID 10/08/21 02/09/23 capsule,delayed release <PHILLIP Manning Last Filed: 09/01/24 23:15> Allergies/Adverse Reactions: Allergies Allergy/AdvReac Type Severity Reaction Status Date / Time No Known Allergies Allergy Verified 08/08/24 19:47 <PHILLIP Manning Last Filed: 09/01/24 23:15> Review of Systems Review of Systems: CONSTITUTIONAL: Reports chills, or sweats. ENT:Reports congestion CARDIOVASCULAR: Denies chest pain RESPIRATORY: Reports cough and dyspnea. <PHILLIP Manning Last Filed: 09/01/24 23:15> All systems reviewed & are unremarkable except as noted in HPI and below <PHILLIP Manning Last Filed: 09/01/24 23:15> [facility] Past Medical History Medical History: Medical History Acid reflux Anxiety Bipolar 1 disorder Borderline diabetic Carpal tunnel syndrome Depression Dysphagia Former tobacco use Marijuana abuse Morbid obesity NIDHI (obstructive sleep apnea) <PHILLIP Manning Last Filed: 09/01/24 23:15> Family History Family History: Family History (Updated 09/02/24 @ 01:00 by Cordell Chandler RN) Mother Hypertension Grandparent Family history of heart disease in male family member before age 55 Cerebrovascular accident Asthma Father Family history of heart disease in male family member before age 55 <PHILLIP Manning Last Filed: 09/01/24 23:15> Social History Social History: Social History Smoking packs per day: 1 Smoking cigarettes per day: 20.0 Years smoked: 18 Smoking pack-years: 18.00 Smoking status: Current every day smoker Tobacco type: e-cigarettes/vaping Smoking end date: 10/26/12 Alcohol intake: former Alcohol use details: FEW DRINKS ONCE MONTHLY Substance use: never Substance use type: marijuana Other substance usage details: USES 3 TIMES/WEEK Do You Feel Safe in your Home?: Yes Lack of Transportation: No Lack of Food: Never True Current Housing: I Have Housing Concerned About Future Housing: No Difficulty Paying Gas/Electric Bills: No Difficulty Paying for Meds: No Currently Unemployed: No Education: High School Diploma/GED Difficulty w/ Childcare or Family Care: No Living arrangements: with family Gender identity (if verbalized by the patient): Female Spiritual care concerns: No Agree to blood products: Yes <PHILLIP Manning Last Filed: 09/01/24 23:15> Exam Narrative: GENERAL: Well-appearing, obese, and in no acute distress. HEAD: Normocephalic, atraumatic. EYES: EOMI. ENT: Nares clear, no rhinorrhea or epistaxis. Mucous membranes moist. Oropharynx without tonsillar hypertrophy exudate or other lesions. Bilateral TMs pearly hays non-bulging NECK: Supple. No adenopathy or masses. CHEST: No respiratory distress. Lung sounds mildly diminished. Rales in the bilateral lower lobes. No wheezes rhonchi HEART: Regular rate and rhythm. No murmur heard. Normal peripheral pulses. EXTREMITIES: Normal range of motion. No edema. SKIN: Warm, dry, no rash. NEURO: No focal deficits. Alert and oriented x3. PSYCH: Normal mood and affect <Juliane Moe PA-C - Last Filed: 09/01/24 23:15> Course Course Emergency Course: Patient updated on workup and recommendation for admission <Juliane Moe PA-C - Last Filed: 09/01/24 23:15> GRAPHIC DESIGNER/PA Physician Supervision Patient's HPI, Exam, and MDM were reviewed and I agreed with the workup and disposition done in the emergency department by the P. I was available for consultation. I did independently evaluate the patient's workup and CT imaging. Three seperate foci of filling defects with potential for pulmonary embolism were found. Patient appropriately started on Lovenox therapy and antibiotics for her potential infectious pathology such as pneumonia versus septic emboli. Refer to MLP dictation for complete documentation and care. Zuleyka cardoza was successfully admitted to the hospital for continued evaluation and treatment. <Vito Haley MD - Last Filed: 09/02/24 01:23> Consultations Consultation #1: Spoke with hospitalist about patient and workup who accepts admission <Juliane Moe PA-C - Last Filed: 09/01/24 23:15> Date: 09/01/24 <Juliane Moe PA-C - Last Filed: 09/01/24 23:15> Vital Signs Vital signs: Vital Signs Temperature 36.8 C 09/01/24 19:03 Pulse Rate 104 H 09/01/24 19:03 Respiratory Rate 22 H 09/01/24 19:03 Blood Pressure 169/97 H 09/01/24 19:03 Pulse Oximetry 95 09/01/24 19:03 Temperature 36.7 C 09/02/24 01:04 Pulse Rate 103 H 09/02/24 01:04 Respiratory Rate 18 09/02/24 01:04 Blood Pressure 170/81 H 09/02/24 01:04 Pulse Oximetry 93 09/02/24 01:04 Oxygen Delivery Room Air 09/01/24 20:52 <Juliane Moe PA-C - Last Filed: 09/01/24 23:15> Vital Signs Temperature 36.8 C 09/01/24 19:03 Pulse Rate 104 H 09/01/24 19:03 Respiratory Rate 22 H 09/01/24 19:03 Blood Pressure 169/97 H 09/01/24 19:03 Pulse Oximetry 95 09/01/24 19:03 Temperature 36.7 C 09/02/24 01:04 Pulse Rate 103 H 09/02/24 01:04 Respiratory Rate 18 09/02/24 01:04 Blood Pressure 170/81 H 09/02/24 01:04 Pulse Oximetry 93 09/02/24 01:04 Oxygen Delivery Room Air 09/01/24 20:52 <Vito Haley MD - Last Filed: 09/02/24 01:23> MDM - Asthma MDM Narrative Medical decision making narrative: Patient presents to the emergency department for shortness of breath, cough. Treated with doxycycline and a steroid for acute bronchitis without improvement. Reports history of asthma. She does vape. She is also on control. Patient tachycardic upon arrival. She is afebrile and nontoxic appearing. Oxygen saturation has remained normal on room air. Cbc without leukocytosis. Metabolic panel with elevation of blood glucose, could be due to current steroid use. Will order hemoglobin A1c. D-dimer elevated, CTA of the chest obtained. This does show likely PE as well as pneumonia. Blood cultures drawn, patient started on IV antibiotics. Given dose of Lovenox. Spoke with hospitalist about patient and workup who accepts admission <TREE Manning Last Filed: 09/01/24 23:15> Differential Diagnosis Differential diagnosis: Likely Acute exacerbation, PE and Pneumonia <PHILLIP Manning Last Filed: 09/01/24 23:15> Lab Data Attestation: I reviewed the patient's lab results. <Juliane Moe PA-C - Last Filed: 09/01/24 23:15> Result diagrams: 09/01/24 20:19 09/01/24 20:19 <Juliane Moe PA-C - Last Filed: 09/01/24 23:15> Labs: Lab Results 09/01/24 Range/Units 20:19 WBC 6.6 (4.5-10.0) K/mm3 RBC 4.31 (4.2-5.4) M/mm3 Hgb 12.7 (12.0-15.0) g/dL Hct 38.3 (37.0-47.0) % MCV 88.9 (80-100) fl MCH 29.5 (26-34) pg MCHC 33.2 (32-36) g/dl RDW 13.9 (11.5-14.5) % Plt Count 274 (150-375) k/mm3 MPV 9.0 (7.4-10.4) fl Immature Gran % (Auto) 0.3 (0-0.5) % Neut % (Auto) 89.0 H (45.5-73.1) % Lymph % (Auto) 7.1 L (18.3-44.2) % Robeson % (Auto) 2.4 L (2.6-8.5) % Eos % (Auto) 0.9 (0-4.4) % Baso % (Auto) 0.3 (0.2-1.2) % Lymph # (Auto) 0.47 L (0.9-3.2) K/mm3 Robeson # (Auto) 0.2 (0.1-0.6) K/mm3 Eos # (Auto) 0.1 (0-0.3) K/mm3 Baso # (Auto) 0.0 (0.0-0.1) K/mm3 Abs Immat Gran (auto) 0.02 (0.00-0.031) K/mm3 Absolute Neuts (auto) 5.9 (1.3-6.7) K/mm3 Absolute Nucleated RBC 0.000 (0.0-0.012) K/mm3 Nucleated RBC % 0.0 (0.0-0.2) % PT 12.8 (11.1-14.7) Seconds INR 0.9 APTT 28.1 (22.3-36.8) Seconds D-Dimer 0.60 H (<0.48) ug/mL Sodium 137 (137-145) mmol/L Potassium 3.9 (3.4-5.0) mmol/L Chloride 102 (98-107) mmol/L Carbon Dioxide 22 (22-30) mmol/L Anion Gap 13 H (4-12) mmol/L BUN 10 (7-17) mg/dL Creatinine 0.70 (0.7-1.0) mg/dL Estim Creat Clear Calc 142 ml/min Estimated GFR > 60 (59 - ) Glucose 246 H (65-110) mg/dL Hemoglobin A1c 6.5 H (<5.7) % Calcium 9.1 (8.4-10.2) mg/dL Influenza A (RT-PCR) Negative (Negative) Influenza B (RT-PCR) Negative (Negative) RSV (RT-PCR) Negative (Negative) SARS-CoV-2 RNA (RT-PCR) Negative (Negative) <Juliane Moe PA-C - Last Filed: 09/01/24 23:15> Lab Results 09/01/24 Range/Units 20:19 WBC 6.6 (4.5-10.0) K/mm3 RBC 4.31 (4.2-5.4) M/mm3 Hgb 12.7 (12.0-15.0) g/dL Hct 38.3 (37.0-47.0) % MCV 88.9 (80-100) fl MCH 29.5 (26-34) pg MCHC 33.2 (32-36) g/dl RDW 13.9 (11.5-14.5) % Plt Count 274 (150-375) k/mm3 MPV 9.0 (7.4-10.4) fl Immature Gran % (Auto) 0.3 (0-0.5) % Neut % (Auto) 89.0 H (45.5-73.1) % Lymph % (Auto) 7.1 L (18.3-44.2) % Robeson % (Auto) 2.4 L (2.6-8.5) % Eos % (Auto) 0.9 (0-4.4) % Baso % (Auto) 0.3 (0.2-1.2) % Lymph # (Auto) 0.47 L (0.9-3.2) K/mm3 Robeson # (Auto) 0.2 (0.1-0.6) K/mm3 Eos # (Auto) 0.1 (0-0.3) K/mm3 Baso # (Auto) 0.0 (0.0-0.1) K/mm3 Abs Immat Gran (auto) 0.02 (0.00-0.031) K/mm3 Absolute Neuts (auto) 5.9 (1.3-6.7) K/mm3 Absolute Nucleated RBC 0.000 (0.0-0.012) K/mm3 Nucleated RBC % 0.0 (0.0-0.2) % PT 12.8 (11.1-14.7) Seconds INR 0.9 APTT 28.1 (22.3-36.8) Seconds D-Dimer 0.60 H (<0.48) ug/mL Sodium 137 (137-145) mmol/L Potassium 3.9 (3.4-5.0) mmol/L Chloride 102 (98-107) mmol/L Carbon Dioxide 22 (22-30) mmol/L Anion Gap 13 H (4-12) mmol/L BUN 10 (7-17) mg/dL Creatinine 0.70 (0.7-1.0) mg/dL Estim Creat Clear Calc 142 ml/min Estimated GFR > 60 (59 - ) Glucose 246 H (65-110) mg/dL Hemoglobin A1c 6.5 H (<5.7) % Calcium 9.1 (8.4-10.2) mg/dL Influenza A (RT-PCR) Negative (Negative) Influenza B (RT-PCR) Negative (Negative) RSV (RT-PCR) Negative (Negative) SARS-CoV-2 RNA (RT-PCR) Negative (Negative) <iVto Haley MD - Last Filed: 09/02/24 01:23> Imaging Data Radiologist's impression: ITS Impressions Chest CTA 09/01/24 21:56 IMPRESSION: Scattered small filling defects within 3 separate segmental arteries of the left chest, possibly artifactual given the limitations of this study. Additional findings suggesting inflammatory (with infectious etiology less likely) pulmonary parenchymal disease with a primarily bibasilar distribution, sometimes seen with vaping injury for which clinical correlation is needed. Bilateral hilar lymphadenopathy is also noted. <Juliane Moe PA-C - Last Filed: 09/01/24 23:15> ECG Data EKG #1: ECG completion date: 09/01/24 <PHILLIP Manning Last Filed: 09/01/24 23:15> EKG Interpretation: normal rate, sinus rhythm, no ST changes and normal QT <Juliane Moe PA-C - Last Filed: 09/01/24 23:15> Critical Care Time Critical Care Time Critical Care Time: Yes <PHILLIP Manning Last Filed: 09/01/24 23:15> Total Critical Care Time: 35 <PHILLIP Manning Last Filed: 09/01/24 23:15> Discharge Plan Discharge Clinical Impression: Pneumonia Qualifiers: Pneumonia type: due to unspecified organism Laterality: bilateral Lung location: lower lobe of lung Qualified Code(s): J18.9 - Pneumonia, unspecified organism Pulmonary embolism Qualifiers: Pulmonary embolism type: multiple subsegmental (without acute cor pulmonale) Qualified Code(s): I26.94 - Multiple subsegmental thrombotic pulmonary emboli without acute cor pulmonale <Juliane Moe PA-C - Last Filed: 09/01/24 23:15> Patient Disposition: Still a Patient <PHILLIP Manning Last Filed: 09/01/24 23:15> Condition: Serious <PHILLIP Manning Last Filed: 09/01/24 23:15>
[2024-09-01] MEDS: methylPREDNISolone SOD SUCC 125 MG VIAL IV PUSH (20:13)
[2024-09-01] MEDS: ACETAMINOPHEN 500 MG TABLET 1000 MG PO (20:13)
[2024-09-01 20:23] LABS: Basophils Percent Auto 0.3 % (0.2-1.2); Eosinophils Absolute Auto 0.1 K/mm3 (0-0.3); Eosinophils Percent Auto 0.9 % (0-4.4); Hematocrit 38.3 % (37.0-47.0); Hemoglobin 12.7 g/dL (12.0-15.0); Immature Granulocyte Absolute 0.02 K/mm3 (0.00-0.031); Immature Granulocyte Percent A 0.3 % (0-0.5); Lymphocytes Absolute Auto 0.47 K/mm3 (0.9-3.2); Lymphocytes Percent Auto 7.1 % (18.3-44.2); Mean Corpuscular HGB Conc 33.2 g/dl (32-36); Mean Corpuscular Hemoglobin 29.5 pg (26-34); Mean Corpuscular Volume 88.9 fl (80-100); Monocytes Absolute Auto 0.2 K/mm3 (0.1-0.6); Monocytes Percent Auto 2.4 % (2.6-8.5); Neutrophils Absolute Auto 5.9 K/mm3 (1.3-6.7); Platelet Count Result 274 k/mm3 (150-375); Red Blood Count 4.31 M/mm3 (4.2-5.4); Red Cell Distribution Width 13.9 % (11.5-14.5); White Blood Count 6.6 K/mm3 (4.5-10.0)
[2024-09-01 20:34] LABS: INR 0.9; Prothrombin Time 12.8 Seconds (11.1-14.7)
[2024-09-01 20:35] LABS: Anion Gap 13 mmol/L (4-12); Blood Urea Nitrogen 10 mg/dL (7-17); Calcium 9.1 mg/dL (8.4-10.2); Carbon Dioxide 22 mmol/L (22-30); Chloride 102 mmol/L (98-107); Estimated CRCL calculation 142 ml/min; Estimated Glomerular Filt Rate > 60; Glucose 246 mg/dL (65-110); Partial Thromboplastin Time 28.1 Seconds (22.3-36.8); Potassium 3.9 mmol/L (3.4-5.0); Sodium 137 mmol/L (137-145)
[2024-09-01 21:00] LABS: Influenza A QL RT-PCR Negative (Negative); Influenza B QL RT-PCR Negative (Negative); RSV RNA, RT-PCR Negative (Negative); SARS-CoV-2 RNA PCR Negative (Negative)
[2024-09-01] MEDS: IPRATROPIUM 0.5 MG/ALBUTEROL SULFATE 2.5 MG AMPUL.NEB 3 ML INHALATION (21:42)
[2024-09-01 23:15] LABS: Hemoglobin A1C 6.5 % (<5.7)
[2024-09-01] MEDS: AZITHROMYCIN 500 MG/NS 250 ML 500 MG/250 ML BAG 250 MG IVPB (23:18)
[2024-09-01] MEDS: ENOXAPARIN 120 MG/0.8 ML SYRINGE SUB-Q (23:22)
[2024-09-01] MEDS: ENOXAPARIN 30 MG/0.3 ML SYRINGE SUB-Q (23:22)
[2024-09-02] VITALS (19 sets, daily range): BP systolic 131–170; BP diastolic 62–98; PULSE 68–118; RESP 18–20; TEMP 36.6–36.8; O2SAT 0–96; BMI 58.8
--- NOTE | 2024-09-02 | ECHO_ITS ---
Patient Info Name: Yi Mendiola Age: 38 years : 1985 Gender: Female Ht: 65 in Wt: 353 lbs BSA: 2.82 m2 HR: 102 bpm Heart Rhythm: Sinus Rhythm Technical Quality: Fair Exam Date: 09/02/2024 2:19 PM Exam Location: Echo Lab Patient Status: Inpatient Admit Date: 09/01/2024 Staff Ordering Physician: Aquilino Boggs MD It Technician: Jacqueline Diaz RDCS Attending Provider: Oskar Felipe MD Exam Type: CA echo dop bubble study w con Study Info Indications - PE Complete two-dimensional, color flow and Doppler transthoracic echocardiogram is performed with contrast to opacify the left ventricle and to improve the deliniation of the left ventricle endocardial borders. Summary 1. Left ventricular chamber dimension is normal. 2. Left ventricular systolic function is normal, estimated at 65-70%. 3. Right ventricular chamber dimension is normal. 4. Right ventricular systolic function is normal. 5. The mitral valve has normal leaflets. 6. There is no aortic valve stenosis. 7. There is no aortic valve regurgitation. 8. No patent ovale evident (PFO) by agitated saline imaging. Left Ventricle Left ventricular chamber dimension is normal. Left ventricular systolic function is normal, estimated at 65-70%. There is no increased left ventricular wall thickness. The left ventricular diastolic function is normal. Right Ventricle Right ventricular chamber dimension is normal. Right ventricular systolic function is normal. Left Atria Left atrial chamber dimension is normal. Right Atria Right atrial chamber dimension is normal. Atrial Septum No patent ovale evident (PFO) by agitated saline imaging. Aortic Valve There is no aortic valve stenosis. There is no aortic valve regurgitation. Pulmonic Valve The pulmonic valve is not well visualized. Mitral Valve The mitral valve has normal leaflets. There is no mitral valve stenosis. There is no mitral valve regurgitation. Tricuspid Valve The tricuspid valve leaflets are normal. There is no significant tricuspid valve stenosis. There is no tricuspid valve regurgitation. No pulmonary hypertension, estimated pulmonary arterial systolic pressure is 20 mmHg. Pericardium/Pleural The pericardium appears normal. There is no pericardial effusion. Inferior Vena Cava Inferior vena cava is not well visualized. Aorta The ascending aorta is not well visualized. Left Ventricular Outflow Tract Name Value Normal LVOT 2D LVOT Diameter 2.2 cm LVOT Doppler LVOT Peak Gradient 3 mmHg LVOT Mean Gradient 2 mmHg LVOT VTI 19 cm LVOT VTI/AV VTI Ratio 0.6 LVOT Stroke Volume 69 ml LVOT CO 6.4 l/min LVOT CI 2.3 l/min/m2 Mitral Valve Name Value Normal MV Doppler MV Decel [place] 349 cm/s2 MV PHT 62 ms MV Area (PHT) 3.5 cm2 4.0-5.0 MV Regurgitation Doppler MR Peak Gradient 50 mmHg MV Diastolic Function MV E Peak Velocity 75 cm/s MV A Peak Velocity 63 cm/s MV E/A 1.2 MV Decel Time 215 ms MV Annular TDI MV E/e' (Septal) 6.8 <=8.0 MV E/e' (Lateral) 6.2 <=8.0 MV E/e' (Average) 6.5 Tricuspid Valve Name Value Normal TV Regurgitation Doppler TR Peak Velocity 161 cm/s TR Peak Gradient 7 mmHg Estimated PAP/RSVP RA Pressure 10 mmHg <=5 PA Systolic Pressure 20 mmHg <36 RV Systolic Pressure 20 mmHg <36 Aortic Valve Name Value Normal AV Doppler AV Peak Velocity 165 cm/s AV Peak Gradient 11 mmHg AV Mean Gradient 7 mmHg AV VTI 30 cm AV Area (Cont Eq VTI) 2.3 cm2 >=3.0 AV Area (Cont Eq Efren) 1.9 cm2 AV Regurgitation 2D LVOT Area 3.6 cm2 Ventricles Name Value Normal LV Dimensions 2D/MM IVS Diastolic Thickness (2D) 1.2 cm 0.6-1.0 LVID Diastole (2D) 4.6 cm 3.8-5.2 LVIW Diastolic Thickness (2D) 1.2 cm 0.6-0.9 LVID Systole (2D) 3.0 cm 2.2-3.5 LVOT Diameter 2.2 cm LV Mass (2D Cubed) 210.64 g 67.00-162.00 LV Mass Index (2D Cubed) 75 g/m2 43-95 Relative Wall Thickness (2D) 0.52 LV Fractional Shortening/Ejection Fraction 2D/MM LV Fractional Shortening (2D) 34 % 27-45 LV EF (2D Teicholz) 63 % 54-74 LV Diastolic Volume (4C MOD) 120 ml LV EF (4C MOD) 73 % LV Diastolic Volume (2C MOD) 118 ml LV EF (2C MOD) 55 % LV Diastolic Volume (BP MOD) 119 ml 46-106 LV Diastolic Volume Index (BP MOD) 42 ml/m2 29-61 LV Systolic Volume (BP MOD) 42 ml 14-42 LV Systolic Volume Index (BP MOD) 15 ml/m2 8-24 LV EF (BP MOD) 65 % 54-74 LV Diastolic Length (4C) 9.4 cm LV Systolic Length (4C) 7.3 cm LV Stroke Volume (4C MOD) 87 ml Atria Name Value Normal LA Dimensions LA Volume (4C A-L) 46 ml LA Volume (BP A-L) 50 ml RA Dimensions RA Area (4C) 13.8 cm2 <=18.0 Report Signatures
--- NOTE | 2024-09-02 04:42 | ADMGEN ---
This patient, Yi Mendiola, was admitted to IMU Room 200-01. Patient/family oriented to hospital policies and general routines including ID bracelet, bed and alarms, visiting hours, pain management, procedures, bathroom and other care routines, personal items, smoking policy, room service/diet, and visiting hours. Information on how to activate the Rapid Response Team has been discussed. Patient/Family are encouraged to report perceived risks to care and to ask questions if they do not understand what they are told or what they should do.
--- NOTE | 2024-09-02 08:31 | PM.IMHP ---
H&P: HPI History of Present Illness Date/Time: 09/02/24 08:31 Chief Complaint: Shortness of breath Narrative: 38yo female with asthma, untreated NIDHI and GERD here for shortness of breath. She has had asthma since teenage years. She was on Advair in the distant past but now only on Albuterol (inhaler and Neb) prn. Her asthma triggers are chest cold and cats. Never been intubated. She does not follow with a ethnology teacher. She has tried NIV but can not tolerate. She quit cigarretts about 7-8 yrs ago after smoking up to 1ppd for about 10yrs. She has been vaping off/on for the past 3 yrs and now taking 2 hits 10-15x/day. She uses a 1 cartridge per week. Her son was ill with PNA about 2 weeks ago. She herself had SOB and cough and was seen at an [facility] and prescribed prednisone and Doxycycline. No CXR performed. She began to feel better and did not finish the medications. Not required steroids for a long time prior to this. She was doing well until about 1 week before admission when she again develoepd nonproductive cough, SOB and 'tightness' in the chest making it difficult to take a deep breath. She was seen on 08/29 for dysuria and had a positive UA. Macrobid started. She did not mention her respiratory symptoms to that provider. Her urinary symptoms have resolved. No hematuria. Her symptoms have worsened over the past 2-3 days. She has been wheezing. She had fever to 100.5 and chills. Also with lightheadedness with standing and coughing. Coughing sever to the point of urine incontinence. She restarted the predinsone on 08/31. She took albuterol neb bid for the past 2 days. She was having IZAGUIRRE walking in to work. 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 She is sediatary. She has noted bilateral LE edema when working for the past year but no calf pain. She does have pleuritic upper back pain bilaterally past few days. She has vy IUD in place. Also has severe GERD as well as hx of esophageal stricture and has to be cautious with hard foods. Last EGD noted in Nov 2021. Pathology at that time showed eosinophilic esophagitis. She presented to the ED for evaluation. In the ED, she was tachycardic (104), hypertensive (169/97) and tachypneic (22). She was 95% on room air. Covid, RSV and Influenza PCR was negative. EKG showing normal sinus with no acute ST-T wave changes. CBC was normal and no eosinophilia. PT/PTT normal but DDimer mildly elevated at 0.6. BMP normal except glucose of 246. A1c 6.5%. CTA chest showing scattered small filling defects within 3 separate segmental arteries of the left chest possibly artifact versus PE. Also with diffuse, multifocal ground glass opacities and consolidation within primarily a bibasilar distribution some with a reversed halo sign. Other areas of the lung suggest a hypersensitivity pneumonitis. Bilateral hilar lymphadenopathy noted. She was given Solu-Medrol once and DuoNeb. She was given 1 dose of therapeutic Lovenox. BCx collected and she was started on Rocephin and Azithromycin. She was admitted for further care. Review of Systems Review of Systems: All systems reviewed & are unremarkable except as noted in HPI and below PMFSH Past Medical History Medical History (Updated 09/02/24 @ 19:01 by Solange Joseph MD) Acid reflux Anxiety Asthma Bipolar 1 disorder Borderline diabetic Carpal tunnel syndrome Depression Dysphagia Eosinophilic esophagitis Esophageal ring Former tobacco use Marijuana abuse Morbid obesity NIDHI (obstructive sleep apnea) Surgical History Surgical History Previous section Family History Family History Mother Hypertension Grandparent Family history of heart disease in male family member before age 55 Cerebrovascular accident Asthma Father Family history of heart disease in male family member before age 55 Social History Social History (Updated 09/02/24 @ 09:38 by Aquilino Boggs MD) Social History: Lives with her 2 children, her boyfriend and his son. Rare alcohol use. Tobacco use as mentioned above. No drug use and no hx of IVDU. Smokes marijuana Code status - full Surrogate decision maker; boyfriend and mother Smoking packs per day: 1 Smoking cigarettes per day: 20.0 Years smoked: 18 Smoking pack-years: 18.00 Smoking status: Current every day smoker Tobacco type: e-cigarettes/vaping Smoking end date: 10/26/12 Alcohol intake: former Alcohol use details: FEW DRINKS ONCE MONTHLY Substance use: never Substance use type: marijuana Other substance usage details: USES 3 TIMES/WEEK Do You Feel Safe in your Home?: Yes Lack of Transportation: No Lack of Food: Never True Current Housing: I Have Housing Concerned About Future Housing: No Difficulty Paying Gas/Electric Bills: No Difficulty Paying for Meds: No Currently Unemployed: No Education: High School Diploma/GED Difficulty w/ Childcare or Family Care: No Living arrangements: with family Gender identity (if verbalized by the patient): Female Spiritual care concerns: No Agree to blood products: Yes Meds Home Medications and Allergies Home Medications Medication Instructions Recorded Confirmed Type duloxetine 60 mg capsule,delayed 60 mg PO DAILY 09/28/19 09/02/24 History release lamotrigine 100 mg tablet 200 mg PO DAILY 09/28/19 09/02/24 History esomeprazole magnesium 20 mg 20 mg PO BID 10/08/21 09/02/24 History capsule,delayed release albuterol sulfate 0.63 mg/3 mL 0.63 mg (3 mL) inhalation Q6H #75 08/08/24 09/02/24 Rx solution for nebulization mL albuterol sulfate 90 mcg/actuation 2 puff inhalation QID PRN 08/08/24 09/02/24 Rx aerosol inhaler shortness of breath or wheezing #6.7 grams doxycycline monohydrate 100 mg 100 mg PO BID #14 tabs 08/08/24 09/02/24 Rx tablet famotidine 20 mg chewable tablet 20 mg PO Q12H PRN Gastric Reflux 09/02/24 09/02/24 History Allergies Allergy/AdvReac Type Severity Reaction Status Date / Time No Known Allergies Allergy Verified 08/08/24 19:47 Vital Signs Vital Signs - 24 hr 09/01/24 19:03 09/01/24 20:50 09/01/24 20:52 Temperature 98.3 F 98.4 F Pulse Rate 104 H 88 Respiratory Rate 22 H 15 Blood Pressure 169/97 H 144/82 H Pulse Oximetry 95 93 93 Oxygen Delivery Room Air Room Air 09/01/24 21:42 09/01/24 21:50 09/01/24 20:01 Temperature Pulse Rate 98 98 102 H Respiratory Rate 20 16 20 Blood Pressure 144/85 H Pulse Oximetry 93 Oxygen Delivery 09/01/24 20:45 09/01/24 20:46 09/01/24 21:00 Temperature Pulse Rate 92 96 92 Respiratory Rate 17 19 17 Blood Pressure 144/82 H Pulse Oximetry 91 92 91 Oxygen Delivery 09/01/24 21:15 09/01/24 21:41 09/01/24 21:45 Temperature Pulse Rate 87 99 94 Respiratory Rate 20 21 H 16 Blood Pressure Pulse Oximetry 93 94 99 Oxygen Delivery 09/01/24 22:00 09/01/24 22:21 09/01/24 22:36 Temperature Pulse Rate 110 H 109 H 110 H Respiratory Rate 21 H 20 13 Blood Pressure Pulse Oximetry 92 89 L 93 Oxygen Delivery 09/01/24 22:48 09/01/24 23:00 09/01/24 23:02 Temperature Pulse Rate 112 H 110 H 111 H Respiratory Rate 16 19 20 Blood Pressure 148/99 H Pulse Oximetry 92 93 93 Oxygen Delivery 09/01/24 23:15 09/01/24 23:16 09/02/24 00:02 Temperature Pulse Rate 109 H 109 H 109 H Respiratory Rate 19 18 20 Blood Pressure 156/97 H Pulse Oximetry 89 L 93 94 Oxygen Delivery 09/02/24 01:04 09/02/24 02:00 09/02/24 04:00 Temperature 98.1 F Pulse Rate 103 H 78 68 Respiratory Rate 18 18 Blood Pressure 170/81 H Pulse Oximetry 93 93 Oxygen Delivery Room Air 09/02/24 04:00 09/02/24 05:28 09/02/24 05:56 Temperature 98.1 F Pulse Rate 68 100 72 Respiratory Rate 18 Blood Pressure 131/62 Pulse Oximetry 96 Oxygen Delivery 09/02/24 08:00 Temperature 97.9 F Pulse Rate 94 Respiratory Rate 18 Blood Pressure 161/98 H Pulse Oximetry 91 Oxygen Delivery Exam Narrative: AF 97.9 161/98 94 18 91% ra Gen - well appearing female in no acute respiratory distress who is nontoxic-appearing lying semi recumbent in bed HEENT - normocephalic. Atraumatic. Pupils equal round and reactive. Extraocular motions intact. Sclera clear and anicteric. Nares patent. Oropharynx was clear with right tonsil slightly larger then left. No oral lesions. Moist mucous membranes. Tongue was midline. Palate kerri symmetrically. No facial asymmetry. Neck - neck was supple and thick. No obvious dominant adenopathy, thyromegaly or masses. Chest - scattered inspiratory rhonchi. Breast exam was deferred. CV - heart was regular rate and rhythm. S1-S2. No murmurs gallops or rubs. Abd - abdomen was soft. Obese. Nontender. Nondistended. Positive bowel sounds. No organomegaly or masses. Ext - no clubbing, cyanosis or edema. 2+ DP pulses bilaterally. Neuro - patient is alert and oriented x4. Strength is 5/5 in both upper and lower extremities. Cranial nerves 2-12 are intact. Speech is clear. Psych - normal mood and affect. Patient is pleasant and cooperative. Skin - warm and dry. No rashes noted. H&P: Results Labs Labs: Short CBC 09/01/24 Range/Units 20:19 WBC 6.6 (4.5-10.0) K/mm3 Hgb 12.7 (12.0-15.0) g/dL Hct 38.3 (37.0-47.0) % Plt Count 274 (150-375) k/mm3 BMP 09/01/24 20:19 Sodium 137 Potassium 3.9 Chloride 102 Carbon Dioxide 22 BUN 10 Creatinine 0.70 Glucose 246 H Calcium 9.1 Assessment and Plan Assessment and plan (1) Pulmonary embolism: Qualifiers: Pulmonary embolism type: multiple subsegmental (without acute cor pulmonale) Qualified Code(s): I26.94 - Multiple subsegmental thrombotic pulmonary emboli without acute cor pulmonale Code(s): I26.99 - Other pulmonary embolism without acute cor pulmonale Status: Acute Assessment and Plan: Patient presents with chest tightness and mildly elevated DDimer noted. CTA chest showing scattered small filling defects within 3 separate segmental arteries of the left chest possibly artifact versus PE. Risk factor is sedentary lifestyle and obesity. Lovenox given once in ED. Will start Eliquis Check LE doppler and Echo. Discuss with radiology about likelihood this is a real finding (2) Pneumonia: Qualifiers: Laterality: bilateral Lung location: lower lobe of lung Pneumonia type: due to unspecified organism Qualified Code(s): J18.9 - Pneumonia, unspecified organism Code(s): J18.9 - Pneumonia, unspecified organism Status: Acute Assessment and Plan: Patient with cough, fever and chills. WBC normal on admission. CTA chest showing diffuse, multifocal ground glass opacities and consolidation within primarily a bibasilar distribution some with a reversed halo sign. She was started on Rocephin and Azithromycin which we will continue Check urine Ag studies including pneumococcal and legionella. Check for pertussis Start Duonebs. Check Sputum Follow up on BCx (3) Vaping-related disorder: Code(s): U07.0 - Vaping-related disorder Status: Acute Assessment and Plan: CTA chest showing diffuse, multifocal ground glass opacities and consolidation within primarily a bibasilar distribution some with a reversed halo sign. Other areas of the lung suggest a hypersensitivity pneumonitis. Concern for EVALI Will treat for PNA She was educated about the benefits of stopping all vaping (4) Asthma: Code(s): J45.909 - Unspecified asthma, uncomplicated Status: Acute Assessment and Plan: Patient with asthma exacerbation. She was SOB prior to admission and resumed her Prednisone which probably blunted her symptoms. She continues to vape and zay also be the etiology of her symptoms. Will treat with oral steroids for 5 days Resume Duoneb treatments (5) NIDHI (obstructive sleep apnea): Code(s): G47.33 - Obstructive sleep apnea (adult) (pediatric) Status: Acute Assessment and Plan: Patient is non-compliant with NIV. Check Apnea link to see if hypoxic at night. (6) Eosinophilic esophagitis: Code(s): K20.0 - Eosinophilic esophagitis Status: Acute Assessment and Plan: Patient with eosinophilic esophagitis by pathology. No systemic eosinophilia. Could be contributing to her asthma. Elevate HOB. Reflux precautions Continue PPI (7) Bipolar 1 disorder: Code(s): F31.9 - Bipolar disorder, unspecified Status: Acute Assessment and Plan: Mood stable. Continue lamotrigine and cymbalta (8) Obese: Code(s): E66.9 - Obesity, unspecified Status: Acute Assessment and Plan: Educate about the benefits of weight management. Plan Code status - Full
[2024-09-02] MEDS: APIXABAN 5 MG TABLET 10 MG PO ×2 (08:43→20:03)
[2024-09-02] MEDS: DULoxetine HCL 60 MG CAPSULE.DR PO (11:22)
[2024-09-02] MEDS: FAMOTIDINE 20 MG TABLET PO (11:22)
[2024-09-02] MEDS: lamoTRIgine 100 MG TABLET 200 MG PO (11:22)
[2024-09-02] MEDS: predniSONE 20 MG TABLET 40 MG PO (11:24)
[2024-09-02] MEDS: PERFLUTREN LIPID MICROSPHERES 1.5 ML VIAL DILUTED TO 10 ML TOTAL VOLUME IV PUSH (14:25)
[2024-09-02] MEDS: IPRATROPIUM 0.5 MG/ALBUTEROL SULFATE 2.5 MG AMPUL.NEB 3 ML INHALATION ×2 (14:53→20:47)
--- NOTE | 2024-09-02 16:28 | IVDEFINITY ---
Prior to administration of IV Definity the patient was educated on the risks and benefits of the imaging enhancing agent including potential adverse side effects. The patient verbalized understanding. Allergies were verified. No exclusion criteria were identified and at least one of the following inclusion criteria were met: 1) physician request, 2) patient technically difficult to image (per the [place] [employer] of Echocardi[employer] guidelines of two or more segments not discernable within the apical view), or 3) questionable left ventricular function. ?
--- NOTE | 2024-09-02 16:29 | P.CONPL_ITS ---
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 She does not have family history of hypercoagulable disorders. 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 Increased weight gain. (3) NIDHI (obstructive sleep apnea): Code(s): G47.33 - Obstructive sleep apnea (adult) (pediatric) Status: Acute Assessment and Plan: Diagnosed 2017, was not able to tolerate APAP, not on treatment for years, now more tired, 70 lb weight gain in 4 years (4) Asthma: Code(s): J45.909 - Unspecified asthma, uncomplicated Status: Acute Assessment and Plan: About 20 years of asthma, increased symptoms lately which appear to be overlap of asthma and vaping related lung injury. (5) Hilar lymphadenopathy: Code(s): R59.0 - Localized enlarged lymph nodes Status: Acute Assessment and Plan: This is noted on her CTA; this may represent infection, a non specific finding, and can be followed on subsequent imaging. She does not have symptoms to suggest malignancy. Could represent sarcoid. Plan plan: Pre and post bronchodilator peak flow. Continue oral steroids and empiric antibiotics Supportive care to allow her to recover from Vaping; she spontaneously told me that she will never vape again. Anticoagulation for small PEs, on Eliquis. Will need follow up with treatment at least 3 months. Out patient follow up for asthma management and sleep apnea. She is always tired, even after recovery sleep on weekends. PFT, split night study, allergy referral Reports 70 lb weight gain since 2019. Echo with bubble was completed today, results pending. Hypersensitivity pneumonitis panel and IgE ordered for tomorrow am. She has eosinophilic esophagitis, and this can be associated with asthma, diversional therapist's assistant evaluation indicated. I will follow her enlarged hilar lymphadenopathy after discharge, does not appear pathologic, and hse has no symptoms to suggest a malignant process. History of Present Illness History of Present Illness Consult date: 09/02/24 Requesting physician: Aquilino Boggs MD Chief complaint: Pneumonia, pulmonary embolus Narrative: Pt was seen Sep 02, 2024 at 17:05 Room 200 Her was at the bedside. 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 She has a history of asthma in high school, was on Advair for a couple of years, stopped due to cost. She uses an albuterol inhaler and nebulizer when she has increased asthma symptoms. Her 12-year-old son was diagnosed with pneumonia last week, treated with antibiotics, improved. She developed increasing cough, wheezing and shortness of breath after he did. Last weekend on Thursday, she cleaned up the basement area which was wet. On Thursday, 3 days ago, she developed severe chest pains over her entire chest with difficulty taking a breath in. She also had dizziness, lightheadedness, and had to grab onto furniture to support herself. This is completely new and different compared to her prior asthma symptoms. She had occasional sputum production with thick secretions. She also had wheezing. She has an albuterol inhaler at home and a nebulizer, was using both excessively and these did not help alleviate her chest pain or shortness of breath. Her last episode of asthma was a couple of years ago, not within the last year. She was on steroids a few day before admission and doxycycline. Steroids prior to admission might mask any increase in eosinophils. Asthma: diagnosed in high school, triggers include cats, seasonal weather changes. She [place]. No exposure to chickens. no wall to wall carpet in the house. Their basement is wet, and she cleaned it last weekend. Social: Lives with , 2 sons 12 and 13 yeas old. 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 No marijuana. vapes. DATA * 09/01/24 CTA Scattered small filling defects within 3 separate segmental arteries of the left chest, possibly artifactual given the limitations of this study. Additional findings suggesting inflammatory (with infectious etiology less likely) pulmonary parenchymal disease with a primarily bibasilar distribution, sometimes seen with vaping injury for which clinical correlation is needed. Bilateral hilar lymphadenopathy is also noted. * 09/02/24; venous dopplers negative for DVT * 09/02/24; wbc 6.6, H/H 12.7/38.3%, 89% neutrophils, no increase in eosinophils. CMP ok, glucose 246, HBA1c = 6.5, urine for Legionella and pneumococcus is pending, testing for Pertussis is pending. Review of Systems Review of Systems: No history of heart disease. Her legs swell during the week, improve while off Thu and Thursday. . All systems reviewed & are unremarkable except as noted in HPI and below PMFSH Past Medical History Medical History (Updated 09/02/24 @ 19:01 by Solange Joseph MD) Acid reflux Anxiety Asthma Bipolar 1 disorder Borderline diabetic Carpal tunnel syndrome Depression Dysphagia Eosinophilic esophagitis Esophageal ring Former tobacco use Marijuana abuse Morbid obesity NIDHI (obstructive sleep apnea) Surgical History Surgical History Previous section Family History Family History Mother Hypertension Grandparent Family history of heart disease in male family member before age 55 Cerebrovascular accident Asthma Father Family history of heart disease in male family member before age 55 Social History Social History (Updated 09/02/24 @ 09:38 by Aquilino Boggs MD) Social History: Lives with her 2 children, her boyfriend and his son. Rare alcohol use. Tobacco use as mentioned above. No drug use and no hx of IVDU. Smokes marijuana Code status - full Surrogate decision maker; boyfriend and mother Smoking packs per day: 1 Smoking cigarettes per day: 20.0 Years smoked: 18 Smoking pack-years: 18.00 Smoking status: Current every day smoker Tobacco type: e-cigarettes/vaping Smoking end date: 10/26/12 Alcohol intake: former Alcohol use details: FEW DRINKS ONCE MONTHLY Substance use: never Substance use type: marijuana Other substance usage details: USES 3 TIMES/WEEK Do You Feel Safe in your Home?: Yes Lack of Transportation: No Lack of Food: Never True Current Housing: I Have Housing Concerned About Future Housing: No Difficulty Paying Gas/Electric Bills: No Difficulty Paying for Meds: No Currently Unemployed: No Education: High School Diploma/GED Difficulty w/ Childcare or Family Care: No Living arrangements: with family Gender identity (if verbalized by the patient): Female Spiritual care concerns: No Agree to blood products: Yes Meds Home Medications and Allergies Home Medications Medication Instructions Recorded Confirmed Type duloxetine 60 mg capsule,delayed 60 mg PO DAILY 09/28/19 09/02/24 History release lamotrigine 100 mg tablet 200 mg PO DAILY 09/28/19 09/02/24 History esomeprazole magnesium 20 mg 20 mg PO BID 10/08/21 09/02/24 History capsule,delayed release albuterol sulfate 0.63 mg/3 mL 0.63 mg (3 mL) inhalation Q6H #75 08/08/24 09/02/24 Rx solution for nebulization mL albuterol sulfate 90 mcg/actuation 2 puff inhalation QID PRN 08/08/24 09/02/24 Rx aerosol inhaler shortness of breath or wheezing #6.7 grams doxycycline monohydrate 100 mg 100 mg PO BID #14 tabs 08/08/24 09/02/24 Rx tablet famotidine 20 mg chewable tablet 20 mg PO Q12H PRN Gastric Reflux 09/02/24 09/02/24 History Allergies Allergy/AdvReac Type Severity Reaction Status Date / Time No Known Allergies Allergy Verified 08/08/24 19:47 Vital Signs Vital Signs - 24 hr 09/01/24 19:03 09/01/24 20:50 09/01/24 20:52 Temperature 36.8 C 36.9 C Pulse Rate 104 H 88 Respiratory Rate 22 H 15 Blood Pressure 169/97 H 144/82 H Pulse Oximetry 95 93 93 Oxygen Delivery Room Air Room Air Fraction of Inspired Oxygen 09/01/24 21:42 09/01/24 21:50 09/01/24 20:01 Temperature Pulse Rate 98 98 102 H Respiratory Rate 20 16 20 Blood Pressure 144/85 H Pulse Oximetry 93 Oxygen Delivery Fraction of Inspired Oxygen 09/01/24 20:45 09/01/24 20:46 09/01/24 21:00 Temperature Pulse Rate 92 96 92 Respiratory Rate 17 19 17 Blood Pressure 144/82 H Pulse Oximetry 91 92 91 Oxygen Delivery Fraction of Inspired Oxygen 09/01/24 21:15 09/01/24 21:41 09/01/24 21:45 Temperature Pulse Rate 87 99 94 Respiratory Rate 20 21 H 16 Blood Pressure Pulse Oximetry 93 94 99 Oxygen Delivery Fraction of Inspired Oxygen 09/01/24 22:00 09/01/24 22:21 09/01/24 22:36 Temperature Pulse Rate 110 H 109 H 110 H Respiratory Rate 21 H 20 13 Blood Pressure Pulse Oximetry 92 89 L 93 Oxygen Delivery Fraction of Inspired Oxygen 09/01/24 22:48 09/01/24 23:00 09/01/24 23:02 Temperature Pulse Rate 112 H 110 H 111 H Respiratory Rate 16 19 20 Blood Pressure 148/99 H Pulse Oximetry 92 93 93 Oxygen Delivery Fraction of Inspired Oxygen 09/01/24 23:15 09/01/24 23:16 09/02/24 00:02 Temperature Pulse Rate 109 H 109 H 109 H Respiratory Rate 19 18 20 Blood Pressure 156/97 H Pulse Oximetry 89 L 93 94 Oxygen Delivery Fraction of Inspired Oxygen 09/02/24 01:04 09/02/24 02:00 09/02/24 04:00 Temperature 36.7 C Pulse Rate 103 H 78 68 Respiratory Rate 18 18 Blood Pressure 170/81 H Pulse Oximetry 93 93 Oxygen Delivery Room Air Fraction of Inspired Oxygen 09/02/24 04:00 09/02/24 05:28 09/02/24 05:56 Temperature 36.7 C Pulse Rate 68 100 72 Respiratory Rate 18 Blood Pressure 131/62 Pulse Oximetry 96 Oxygen Delivery Fraction of Inspired Oxygen 09/02/24 08:00 09/02/24 08:00 09/02/24 12:00 Temperature 36.6 C 36.7 C Pulse Rate 94 104 H 104 H Respiratory Rate 18 20 Blood Pressure 161/98 H 143/93 H Pulse Oximetry 91 92 Oxygen Delivery Fraction of Inspired Oxygen 09/02/24 10:00 09/02/24 12:00 09/02/24 14:00 Temperature Pulse Rate 103 H 103 H 78 Respiratory Rate Blood Pressure Pulse Oximetry Oxygen Delivery Fraction of Inspired Oxygen 09/02/24 14:56 09/02/24 14:56 09/02/24 15:07 Temperature Pulse Rate 101 H 102 H Respiratory Rate 18 18 Blood Pressure Pulse Oximetry 94 Oxygen Delivery Room Air Fraction of Inspired Oxygen 21 Exam Narrative: GEN: Alert, oriented, not in distress. She was walking in the halls before this visit, is at bedside. HEENT: pupils are equal, EOMI, symmetrical face; oral membranes moist, Mallampati III airway NECK: Trachea is midline, no lymphadenopathy CHEST: Equal air entry, symmetric excursion, diffuse scattered wheezes, prolonged expiration CV: Regular S1S2 no m/g/r ABD : (+) bowel sounds Extremities : no clubbing or cyanosis; 1+ ankle and pre tibial edema. No calf tenderness. PSYCH: normal thought and speech, gait is normal Results Laboratory Findings 09/01/24 20:19 09/01/24 20:19 ABG, PT/INR, D-dimer: PT/INR, D-dimer PT 12.8 Seconds (11.1-14.7) 09/01/24 20:19 INR 0.9 09/01/24 20:19 D-Dimer 0.60 ug/mL (<0.48) H 09/01/24 20:19 Abnormal lab findings: Abnormal Labs 09/01/24 20:19 Neut % (Auto) 89.0 H Lymph % (Auto) 7.1 L [place] % (Auto) 2.4 L Lymph # (Auto) 0.47 L D-Dimer 0.60 H Anion Gap 13 H Glucose 246 H Hemoglobin A1c 6.5 H
[2024-09-02] MEDS: PANTOPRAZOLE 40 MG TABLET PO (18:35)
[2024-09-02] MEDS: SODIUM CHLOR 3% 15 ML NEB (RESPIRATORY THERAPY) 6 ML INHALATION (20:47)
[2024-09-02] MEDS: AZITHROMYCIN 500 MG/NS 250 ML 500 MG/250 ML BAG 250 MG IVPB (23:14)
[2024-09-03] VITALS (14 sets, daily range): BP systolic 114–148; BP diastolic 57–84; PULSE 72–108; RESP 14–20; TEMP 36.6–36.8; O2SAT 91–97
[2024-09-03] MEDS: IPRATROPIUM 0.5 MG/ALBUTEROL SULFATE 2.5 MG AMPUL.NEB 3 ML INHALATION ×2 (07:07→14:11)
[2024-09-03] MEDS: SODIUM CHLOR 3% 15 ML NEB (RESPIRATORY THERAPY) 6 ML INHALATION ×2 (07:07→14:11)
[2024-09-03] MEDS: lamoTRIgine 100 MG TABLET 200 MG PO (08:24)
[2024-09-03] MEDS: predniSONE 20 MG TABLET 40 MG PO (08:24)
[2024-09-03] MEDS: APIXABAN 5 MG TABLET 10 MG PO (08:25)
[2024-09-03] MEDS: DULoxetine HCL 60 MG CAPSULE.DR PO (08:25)
[2024-09-03] MEDS: PANTOPRAZOLE 40 MG TABLET PO (08:25)
[2024-09-03 08:55] LABS: Alanine Aminotransferase 24 U/L (6-35); Albumin Level 4.1 g/dL (3.5-5.1); Alkaline Phosphatase 72 U/L (38-126); Anion Gap 10 mmol/L (4-12); Aspartate Amino Transferase 24 U/L (14-36); Bilirubin,Total 0.2 mg/dL (0.2-1.3); Blood Urea Nitrogen 13 mg/dL (7-17); Calcium 9.2 mg/dL (8.4-10.2); Carbon Dioxide 28 mmol/L (22-30); Chloride 102 mmol/L (98-107); Estimated CRCL calculation 147 ml/min; Estimated Glomerular Filt Rate > 60; Glucose 101 mg/dL (65-110); Sodium 140 mmol/L (137-145)
--- NOTE | 2024-09-03 13:02 | P.PNPL_ITS ---
Progress Note: A&P Assessment and Plan (1) Pneumonia: Qualifiers: Laterality: bilateral Lung location: lower lobe of lung Pneumonia type: due to unspecified organism Qualified Code(s): J18.9 - Pneumonia, unspecified organism Code(s): J18.9 - Pneumonia, unspecified organism Status: Acute Assessment and Plan: Bibasilar infiltrates with a nodular pattern, viral swabs are all negative. Nasal swab for MRSA is pending. No sputum available for evaluation. Urine antigens are pending. She took a few days of doxycycline 100 mg b.i.d. around August 08 and quit because she was better. Worsened, had unusual symptoms including dizziness, intense chest pain. This is probably combination of pneumonia, PEs and vaping related lung injury. She is currently on IV ceftriaxone and azithromycin. She can go home on azithromycin 250 mg for 3 more days and Augmentin 875 mg b.i.d. for 5 more days. This complete 7 days of treatment for community-acquired pneumonia. (2) Vaping-related disorder: Code(s): U07.0 - Vaping-related disorder Status: Acute Assessment and Plan: She has changes on CTA with basilar infiltrates with multiple nodules consistent with pneumonia as well as possilbe Vaping-related lung injury. (3) Pulmonary embolism: Qualifiers: Pulmonary embolism type: multiple subsegmental (without acute cor pulmonale) Qualified Code(s): I26.94 - Multiple subsegmental thrombotic pulmonary emboli without acute cor pulmonale Code(s): I26.99 - Other pulmonary embolism without acute cor pulmonale Status: Acute Assessment and Plan: She has small pulmonary emboli on CTA, with symptoms consistent with PEs. She does not have family history of hypercoagulable disorders. 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 Increased weight gain with obesity, BMI 58.1. Treat with Eliquis 5 mg b.i.d. for 3 months. (4) NIDHI (obstructive sleep apnea): Code(s): G47.33 - Obstructive sleep apnea (adult) (pediatric) Status: Acute Assessment and Plan: Diagnosed 2017, was not able to tolerate APAP, not on treatment for years, now more tired, 70 lb weight gain in 4 years; ApneaLink last night = baseline saturation 92%, lowest saturation 84%, no significant time spent below 88%. The apnea hypopnea index was not available due to the evaluation interval being too short, 0 minutes, a technical error. We will get a split night study after she recovers from this episode. (5) Asthma: Code(s): J45.909 - Unspecified asthma, uncomplicated Status: Acute Assessment and Plan: About 20 years of asthma, increased symptoms lately which appear to be overlap of asthma and vaping related lung injury. Also had pneumonia with bibasilar infiltrates, nodular pattern, aggravating asthma. (6) Hilar lymphadenopathy: Code(s): R59.0 - Localized enlarged lymph nodes Status: Acute Assessment and Plan: This is noted on her CTA; this may represent infection, a non specific finding, and can be followed on subsequent imaging. She does not have symptoms to suggest malignancy. Could represent sarcoid. Plan plan: 1. ok to go home today 2. Take 3 months of Eliquis 5 mg bid for presumed small pulmonary emboli. 3. Continue antibiotics to complete pneumonia treatment for 7 days; azithromycin 250 mg op x 3 days and Augmentin 875 mg x 5 days. This will cover Streptococcus and atypicals. She had prednisone earlier in July, then took a few days of doxycycline ordered Aug 08; she started feeling better, then quit taking doxycycline. I do not think that she needs coverage for Pseudomonas; She has asthma but not COPD/bronchiectasis/DM or other risk factors such as age, alcohol, chemo, HIV. 4. Prednisone taper 5. MRSA nasal swab ordered for today before discharge. 6. Follow up in office in 2-3 weeks; we will see how she is recovering from pneumonia, order PFTS, teach her how to measure peak flows, and plan for a sleep study and allergy referral. 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 7. Remind her to bring peak flow meter to office visit. 8. Supportive care to allow her to recover from Vaping; she spontaneously told me that she will never vape again. 9. IgE and Hypersensitivity panel were sent today, results pending. Subjective Date/time seen: 09/03/24 13:02 Interval history: hospital follow up; 09/03; She feels better, sitting in a chair, water coloring; at bedside. On Room air. Feels much better. Peak flows yesterday 210 L/min, today 300 L/min. this is acceptable. Her ApneaLink was not helpful, no time was recorded that was acceptable for evaluation although the device was on he r> 6 hours. Her baseline saturation was 92% during sleep, low. I talked with her about her diagnoses; she definitely has pneumonia radiographically and clinically. Her pneumonia shows numerous tiny nodules. She Improved after a few days of doxycycline as an outpatient therefore she quit taking it. Hard to say if this is failure because she did not have sufficient amount of treatment. She has some criteria that is consistent with vaping related lung injury, definitely will not vape any longer. She has moderate criteria for several small pulmonary emboli. I talked with her about taking Eliquis for 3 months and she is in agreement with this. Echo with bubble study yesterday is normal, see below. 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 She has a history of asthma in high school, was on Advair for a couple of years, stopped due to cost. She uses an albuterol inhaler and nebulizer when she has increased asthma sympto ms. Her 12-year-old son was diagnosed with pneumonia last week, treated with antibiotics, improved. She developed increasing cough, wheezing and shortness of breath after he did. Last weekend on Thursday, she cleaned up the basement area which was wet. On Thursday, 3 days ago, she developed severe chest pains over her entire chest with difficulty taking a breath in. She also had dizziness, lightheadedness, and had to grab onto furniture to support herself. This is completely new and different compared to her prior asthma symptoms. She had occasional sputum production with thick secretions. She also had wheezing. She has an albuterol inhaler at home and a nebulizer, was using both excessively and these did not help alleviate her chest pain or shortness of breath. Her last episode of asthma was a couple of years ago, not within the last year. She was on steroids a few day before admission and doxycycline. Steroids prior to admission might mask any increase in eosinophils. Asthma: diagnosed in high school, triggers include cats, seasonal weather changes. She [place]. No exposure to chickens. no wall to wall carpet in the house. Their basement is wet, and she cleaned it last weekend. Social: Lives with , 2 sons 12 and 13 yeas old. 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 No marijuana. vapes. DATA * 09/02/24; echo with bubble; Left ventricular chamber dimension is normal. 2. Left ventricular systolic function is normal, estimated at 65-70%. 3. Right ventricular chamber dimension is normal. 4. Right ventricular systolic function is normal. 5. The mitral valve has normal leaflets. 6. There is no aortic valve stenosis. 7. There is no aortic valve regurgitation. 8. No patent ovale evident (PFO) by agitated saline imaging. * 09/01/24 CTA Scattered small filling defects within 3 separate segmental arteries of the left chest, possibly artifactual given the limitations of this study. Additional findings suggesting inflammatory (with infectious etiology less likely) pulmonary parenchymal disease with a primarily bibasilar distribution, sometimes seen with vaping injury for which clinical correlation is needed. Bilateral hilar lymphadenopathy is also noted. * 09/02/24; venous dopplers negative for DVT * 09/02/24; wbc 6.6, H/H 12.7/38.3%, 89% neutrophils, no increase in eosinophils. CMP ok, glucose 246, HBA1c = 6.5, urine for Legionella and pneumococcus is pending, testing for Pertussis is pending. Review of Systems Review of Systems: All systems reviewed & are unremarkable except as noted in HPI and below Exam Narrative: GEN: Alert, oriented, not in distress. She is sitting in a chair, watercoloring. is at bedside. CHEST: Equal air entry, symmetric excursion, chest has no wheezing today. Much better. CV: Regular S1S2 no m/g/r ABD : (+) bowel sounds Extremities : no clubbing or cyanosis; trace ankle and pre tibial edema. No calf tenderness. PSYCH: normal thought and speech Objective Data Vital Signs Vital Signs: Vital Signs - 24 hr 09/02/24 14:00 09/02/24 14:56 09/02/24 14:56 Temperature Pulse Rate 78 101 H Respiratory Rate 18 Blood Pressure Pulse Oximetry 94 Oxygen Delivery Room Air Fraction of Inspired Oxygen 21 09/02/24 15:07 09/02/24 16:00 09/02/24 16:00 Temperature 36.8 C Pulse Rate 102 H 109 H 118 H Respiratory Rate 18 20 Blood Pressure 168/93 H Pulse Oximetry 0 L Oxygen Delivery Fraction of Inspired Oxygen 09/02/24 18:00 09/02/24 20:00 09/02/24 20:00 Temperature 36.7 C Pulse Rate 105 H 86 Respiratory Rate 20 Blood Pressure 139/67 Pulse Oximetry 94 Oxygen Delivery Room Air Fraction of Inspired Oxygen 09/02/24 20:49 09/02/24 21:17 09/02/24 21:10 Temperature Pulse Rate 85 88 Respiratory Rate 18 18 Blood Pressure Pulse Oximetry 95 Oxygen Delivery Room Air Fraction of Inspired Oxygen 21 09/02/24 20:00 09/02/24 22:00 09/03/24 00:00 Temperature 36.6 C Pulse Rate 97 95 85 Respiratory Rate 14 Blood Pressure 114/57 L Pulse Oximetry 97 Oxygen Delivery Fraction of Inspired Oxygen 09/03/24 00:00 09/03/24 00:00 09/03/24 02:00 Temperature Pulse Rate 85 76 Respiratory Rate Blood Pressure Pulse Oximetry Oxygen Delivery Room Air Fraction of Inspired Oxygen 09/03/24 04:00 09/03/24 04:00 09/03/24 04:00 Temperature 36.8 C Pulse Rate 72 85 Respiratory Rate 20 Blood Pressure 118/65 Pulse Oximetry 96 Oxygen Delivery Room Air Fraction of Inspired Oxygen 09/03/24 05:44 09/03/24 07:07 09/03/24 07:07 Temperature Pulse Rate 86 88 Respiratory Rate 20 Blood Pressure Pulse Oximetry 94 Oxygen Delivery Room Air Fraction of Inspired Oxygen 09/03/24 07:25 09/03/24 07:51 09/03/24 11:53 Temperature 36.7 C 36.7 C Pulse Rate 95 96 97 Respiratory Rate 20 16 20 Blood Pressure 148/84 H 130/71 Pulse Oximetry 91 93 Oxygen Delivery Fraction of Inspired Oxygen Intake/Output Intake/Output: Intake & Output 08/31/24 09/01/24 09/02/24 09/03/24 23:59 23:59 23:59 23:59 Intake Total 50 2000 1280 Output Total 700 900 Balance 50 1300 380 Meds/Results Medications: Active Medications Generic Name Dose Route Start Last Admin Trade Name Freq PRN Reason Stop Dose Admin Albuterol 2 puff 09/02/24 10:00 Albuterol Sulfate (*Sp) Aerosol 1 Puff INHALATION QID PRN shortness of breath or wheezing Albuterol/Ipratropium 3 ml 09/02/24 10:00 09/03/24 07:07 Ipratropium 0.5 Mg/Albuterol Sulfate 2.5 Mg Ampul.Neb 3 Ml INHALATION 3 ml Q6HRT MARYJO Administration Apixaban 10 mg 09/02/24 09:00 09/03/24 08:25 Apixaban 5 Mg Tablet PO 09/08/24 21:01 10 mg Q12HR MARYJO Administration Apixaban 5 mg 09/09/24 09:00 Apixaban 5 Mg Tablet PO Q12HR MARYJO Duloxetine HCl 60 mg 09/02/24 11:00 09/03/24 08:25 Duloxetine Hcl 60 Mg Capsule.Dr PO 60 mg DAILY MARYJO Administration Famotidine 20 mg 09/02/24 10:04 09/02/24 11:22 Famotidine 20 Mg Tablet PO 20 mg Q12HR PRN Administration Gastric Reflux Ceftriaxone Sodium 1 gm in 50 mls @ 100 mls/hr 09/02/24 23:00 09/02/24 23:44 Rocephin 1 Gm/Ns 50 Ml IVPB Infused Q24H MARYJO Infusion Azithromycin 500 mg in 250 mls @ 250 mls/hr 09/02/24 23:00 09/03/24 00:14 Zithromax IVPB Infused Q24H MARYJO Infusion Lamotrigine 200 mg 09/02/24 11:00 09/03/24 08:24 Lamotrigine 100 Mg Tablet PO 200 mg DAILY MARYJO Administration Pantoprazole Sodium 40 mg 09/02/24 17:00 09/03/24 08:25 Pantoprazole 40 Mg Tablet PO 40 mg BID MARYJO Administration Prednisone 40 mg 09/03/24 08:00 09/03/24 08:24 Prednisone 20 Mg Tablet PO 09/06/24 08:01 40 mg DAILY@0800 MARYJO Administration Sodium Chloride 6 ml 09/02/24 21:00 09/03/24 07:07 Sodium Chlor 3% 15 Ml Neb (Respiratory Therapy) INHALATION 09/05/24 17:01 6 ml QID MARYJO Administration Radiology Results: ITS Impressions Chest CTA 09/01/24 21:56 IMPRESSION: Scattered small filling defects within 3 separate segmental arteries of the left chest, possibly artifactual given the limitations of this study. Additional findings suggesting inflammatory (with infectious etiology less likely) pulmonary parenchymal disease with a primarily bibasilar distribution, sometimes seen with vaping injury for which clinical correlation is needed. Bilateral hilar lymphadenopathy is also noted. Venous Doppler Study 09/02/24 15:56 IMPRESSION: 1. No deep venous thrombosis within the bilateral lower extremities. Labs Labs: Laboratory Results - last 24 hr 09/03/24 07:52 Sodium 140 Potassium 4.0 Chloride 102 Carbon Dioxide 28 Anion Gap 10 BUN 13 Creatinine 0.70 Estim Creat Clear Calc 147 Estimated GFR > 60 Glucose 101 Calcium 9.2 Total Bilirubin 0.2 AST 24 ALT 24 Alkaline Phosphatase 72 Total Protein 8.0 Albumin 4.1
--- NOTE | 2024-09-03 15:17 | P.DS_ITS ---
DS: Admitting Diagnosis Discharge Date 09/03/24 Admitting Diagnosis Shortness of breath DS: Discharge Diagnosis Discharge Diagnosis (1) Pulmonary embolism: Qualifiers: Pulmonary embolism type: multiple subsegmental (without acute cor pulmonale) Qualified Code(s): I26.94 - Multiple subsegmental thrombotic pul monary emboli without acute cor pulmonale Code(s): I26.99 - Other pulmonary embolism without acute cor pulmonale Status: Acute (2) Pneumonia: Qualifiers: Laterality: bilateral Lung location: lower lobe of lung Pneumonia type: due to unspecified organism Qualified Code(s): J18.9 - Pneumonia, unspecified organism Code(s): J18.9 - Pneumonia, unspecified organism Status: Acute (3) Vaping-related disorder: Code(s): U07.0 - Vaping-related disorder Status: Acute (4) Asthma: Code(s): J45.909 - Unspecified asthma, uncomplicated Status: Acute (5) NIDHI (obstructive sleep apnea): Code(s): G47.33 - Obstructive sleep apnea (adult) (pediatric) Status: Acute (6) Eosinophilic esophagitis: Code(s): K20.0 - Eosinophilic esophagitis Status: Acute (7) Bipolar 1 disorder: Code(s): F31.9 - Bipolar disorder, unspecified Status: Acute (8) Obese: Code(s): E66.9 - Obesity, unspecified Status: Acute DS: Summary Hospital Course Reason for hospitalization: 38yo female with asthma, untreated NIDHI and GERD here for shortness of breath. Please see H&P for details. Hospital Course: She presented with SOB. In the ED, she was tachycardic (104), hypertensive (169/97) and tachypneic (22). She was 95% on room air. COVID, RSV and Influenza PCR were negative. EKG showing normal sinus with no acute ST-T wave changes. CBC was normal and no eosinophilia (but she was on steroids on admission). PT/PTT normal but DDimer mildly elevated at 0.6. BMP normal except glucose of 246. A1c 6.5%. CTA chest showing scattered small filling defects within 3 separate segmental arteries of the left chest possibly artifact versus PE. Also with diffuse, multifocal ground glass opacities and consolidation within primarily a bibasilar distribution some with a reversed halo sign. Other areas of the lung suggest a hypersensitivity pneumonitis. Bilateral hilar lymphadenopathy noted. She was given Solu-Medrol once and DuoNeb. She was given 1 dose of therapeutic Lovenox. BCx collected and she was started on Rocephin and Azithromycin. She was admitted for further care. Ag testing for legionella, pneumococcal ordered. Pertussis ordered. MRSA nasal swab ordered. LE venous doppler was negative for DVT. She was started on Eliquis for PE. She does have risk factors with obesity, sedentary lifestyle. DuoNebs and prednisone started. Echo showing normal LV size and systolic fxn (EF 65-70%), normal diastolic fxn, normal RV size and systolic fxn, no valvular disease and intact septum by bubble study. Apnea link showing evaluation was too short but she only spent 2min with SpO2 <88% on room air. BCx no growth to date. Sputum cx pending. Repeat glucose was normal. Pulmonary consulted and appreciate their input; discussed. She had clinical improvement. She overall did well and was able to be discharged home on 09/03/24. Status at Discharge Cognitive/behavioral status at discharge: stable Time Spent with Patient Time attestation: Total time spent providing and/or coordinating discharge services: 35 minutes Time spent: Greater than 30 minutes Exam Narrative: AF 98.1 130/71 94 20 93% ra Gen - NARD Chest - distant, clear BS CV - RRR S1/S2; Tele showing occasional sinus tach Abd - Soft. Obese. NT/ND Ext - no pedal edema Psych - normal mood and affect. Skin - warm and dry. DS: Data Data Completed and Pending Labs on day of discharge: Labs from last 24 hours 09/03/24 09/03/24 09/03/24 15:00 07:52 07:49 Sodium 140 Potassium 4.0 Chloride 102 Carbon Dioxide 28 Anion Gap 10 BUN 13 Creatinine 0.70 Estim Creat Clear Calc 147 Estimated GFR > 60 Glucose 101 Calcium 9.2 Total Bilirubin 0.2 AST 24 ALT 24 Alkaline Phosphatase 72 Total Protein 8.0 Albumin 4.1 [place] Serum Ab Pending Nasal MRSA (PCR) Pending IgE Pending Saccharo. viridis Ab Pending T. candidus Antibody Pending T. vulgaris Antibody Pending Aspergillus fum #1 Ab Pending Micropolyspora faeni Ab Pending Preliminary micro results at discharge 11/08/24 11:45 Sputum Culture - Preliminary Sputum 11/07/24 23:05 Blood Culture - Preliminary Blood 09/01/24 23:05 Blood Culture - Preliminary Blood Discharge Plan Discharge Attending physician on discharge: Aquilino Boggs Consulting providers: Solange Joseph Discharging Clinician: Aquilino Boggs Anticipated Discharge Date/Time: 09/03/24 15:29 Patient Disposition: Home, Self-Care Activity: as tolerated Diet: heart healthy Discharge Instructions: Stop using all vaping products and avoid all products that contain tobacco or nicotine. Please complete your antibiotic course even if you are starting to feel well. Contact your doctor or call 911 and come to the Emergency Room if you have increasing shortness of breath, lightheadedness with standing or other worrisome symptoms. Avoid NSAIDs (ibuprofen, naproxen, Aleve). Tylenol is safe to take. You are going home with a medication that thins your blood called apixaban (Eliquis) Take Eliquis 10mg (5mg x2) tablet every 12 hours through September 08. Start taking Eliquis 5mg tablet every 12 hours on September 09 Follow-up with your primary care provider in 1-2 weeks. Please call for appointment. Follow-up with pulmonology in 2-3 weeks. Please call for an appointment. Follow-up wit your GI doctor as needed to your acid reflux. Please call for an appointment. Thank you for using [facility] for your health care needs. Patient Instructions: Antibiotic Form, Prednisone (By mouth), Apixaban (By mouth), Asthma (GEN), Spontaneous Pneumothorax (ED) Stand Alone Forms: General Discharge Information Follow-up/Referrals: Solange Joseph MD [Physician] - Call for Appointment PHYSICIAN NOT ON STAFF,NONSTAFF [Primary Care Provider] - Call for Appointment Joaquín Nieves MD [Physician] - Other Discharge Medications: New prednisone 20 mg Tablet 40 mg PO DAILY@0800 3 Days Qty: 6 0RF amoxicillin-pot clavulanate 875-125 mg tablet 1 tablet PO Q12H 5 Days Qty: 10 0RF Eliquis DVT-PE Treat 30D Start 5 mg (74 tabs) tablets,dose pack See Rx Instructions .ROUTE .COMPLEX Qty: 74 0RF Rx Instructions: orally per package directions azithromycin 250 mg tablet 250 mg PO HS 3 Days Qty: 3 0RF Continued albuterol sulfate 90 mcg/actuation HFA aerosol inhaler 2 puff inhalation QID PRN (Reason: shortness of breath or wheezing) Qty: 6.7 0RF duloxetine 60 mg capsule,delayed release(DR/EC) 60 mg PO DAILY lamotrigine 100 mg tablet 200 mg PO DAILY esomeprazole magnesium 20 mg capsule,delayed release(DR/EC) 20 mg PO BID famotidine 20 mg Tablet,Chewable 20 mg PO Q12H PRN (Reason: Gastric Reflux) Changed albuterol sulfate 0.63 mg/3 mL solution for nebulization 0.63 mg inhalation Q6H PRN (Reason: Shortness Of Breath) Qty: 75 0RF Discontinued doxycycline monohydrate 100 mg tablet 100 mg PO BID Qty: 14 0RF Rx Instructions: until; 09/05/24 Date of admission: 09/01/24 22:58 Primary Care Provider: PHYSICIAN NOT ON STAFF,NONSTAFF Admitting Provider: Oskar Felipe V. Attending physician on admission: Oskar Felipe V. Condition: Stable Hospitalist MIPS Heart Failure (Exclusion) Patient has history of Heart Transplant or Left Ventricular Assistive Device?: No IF YES, STOP HERE Heart Failure (Qualifier) Patient has current or prior documentation of LVEF less than or equal to 40%, or mod/servere depressed LVSF?: No IF NO, STOP HERE
[2024-09-03 16:20] LABS: MRSA (PCR) NOT DETECTED (NOT DETECTE)
[2024-09-06 17:28] LABS: Pneumococcal Antigen Urine NOT DETECTED
[2024-09-07 02:14] LABS: Legionella pneumophila Ag Ur NOT DETECTED
--- NOTE | 2024-09-07 08:52 | PC.NURSE ---
Urine legionella and urine pneumococcal Ags are both not detected. Blood cx are negative MRSA swab is negative B. Pertussis is not detected Dr. Ambrose rowe.
== END 2024-09-03 16:18 | disposition home or self-care (01) ==
LOC: ANHED 23:15 → ANHIMU 09-02 04:43
PROVIDERS: Internal Medicine Critical Care Medicine; Admitting Provider Internal Medicine; Emergency Provider Physician Assistant; Visit Provider Internal Medicine
DX: U07.0 Vaping-related disorder (principal); J18.9 Pneumonia, unspecified organism; I26.94 Multiple subsegmental thrombotic pulmonary emboli without acute cor pulmonale; J45.909 Unspecified asthma, uncomplicated; R59.0 Localized enlarged lymph nodes; K20.0 Eosinophilic esophagitis; R79.1 Abnormal coagulation profile; E66.01 Morbid (severe) obesity due to excess calories; Z68.43 Body mass index [BMI] 50.0-59.9, adult; G47.33 Obstructive sleep apnea (adult) (pediatric); K21.9 Gastro-esophageal reflux disease without esophagitis; R73.03 Prediabetes; F31.9 Bipolar disorder, unspecified; F41.9 Anxiety disorder, unspecified; Z20.822 Contact with and (suspected) exposure to COVID-19; Z87.891 Personal history of nicotine dependence; Z79.3 Long term (current) use of hormonal contraceptives; Z79.51 Long term (current) use of inhaled steroids; Z79.899 Other long term (current) drug therapy
CPT/HCPCS: 36415; 71275; 80048; 80053; 82785; 83036; 85025; 85380; 85610; 85730; 87040; 87070; 87205; 87449; 87637; 87641; 87798; 87899; 93005; 93970; 94640; 94762; 96365; 96366; 96367; 96372; 96375; 99291; A9270; C8929; G0378; J0456; J0696; J1650; J2919; J7512; Q9957; Q9967

== ENCOUNTER 2024-09-17 00:34 | Emergency (ER) | payer OTHER, SELFPAY ==
--- NOTE | ~2024-09-17 | CT_ITS ---
EXAMINATION: CTA chest PE protocol DATE: 09/17/2024 04:07 INDICATION: Worsening shortness of breath with recent pneumonia and pulmonary embolism. TECHNIQUE: Computed tomography (CT) pulmonary angiogram of the chest was performed with 100 mL Omnipa que-350 intravenous contrast. Additional 3D reconstructions utilizing coronal maximum intensity proje ction (MIP) were performed. Automated exposure control and iterative reconstruction technique were em ployed. The dose-length product was 1024.24 mGy-cm. COMPARISON: None FINDINGS: No pulmonary embolism. Sensitivity mildly decreased in some of the smaller subsegmental pulmonary art eries due to good but suboptimal contrast opacification of the pulmonary arteries and mild scattered respiratory motion. Significant interval decrease in now minimal residual tree-in-bud opacities in th e bilateral lower lobes consistent with improving pneumonia. No pulmonary edema or pleural effusion. Heart size is normal. No pericardial effusion. Thoracic aorta is normal in caliber with no dissection . No pathologically enlarged thoracic lymphadenopathy. Severe spondylosis with chronic mild anterior wedging of a few vertebral bodies in the lower thoracic spine. IMPRESSION: 1. No pulmonary embolism. 2. Significant interval decrease in tree-in-bud opacities in the bilateral lower lobes consistent wit h improving pneumonia. Reviewed, dictated and finalized at location A. FORMER IMPRESSION: 1. No pulmonary embolism. 2. Significant interval decrease in tree-in-bud opacities in the bilateral lowe r lobes consistent with improving pneumonia.
--- NOTE | ~2024-09-17 | XR_ITS ---
EXAMINATION: XR chest 1V portable DATE: 09/17/2024 01:07 INDICATION: Shortness of breath TECHNIQUE: frontal view of the chest was obtained. COMPARISON: Chest radiograph dated 11/04/[address] dated 09/01/2024 FINDINGS: Small lung volumes. Mild opacities in the left lower lung zone which could represent atelectasis or p neumonia. The cardiomediastinal silhouette is normal. IMPRESSION: 1. Small lung volumes with mild opacities in the bilateral lower lung zones which could represent ate lectasis or pneumonia. Reviewed, dictated and finalized at location A. 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 Small lung volumes with mild opacities in the bilateral lower lung zones whi ch could represent atelectasis or pneumonia.
[2024-09-17 00:35] VITALS: BP 182/98; PULSE 127; RESP 20; TEMP 36.6; O2SAT 97
--- NOTE | 2024-09-17 00:40 | ECG_ITS ---
Test Date: 2024-09-17 00:48:30 Measurements Intervals [place] Rate: 109 P: 37 AK: 136 QRS: 22 QRSD: 102 T: 43 QT: 336 QTc: 453 Interpretive Statements SINUS TACHYCARDIA CONSIDER INFERIOR INFARCT, AGE INDETERMINATE BASELINE ARTIFACT- I, III, AVR, AVL ABNORMAL ECG Compared to ECG 09/01/2024 21:07:03 HEART RATE HAS INCREASED Electronically Signed On 09-17-2024 07:43:38 SUBSTATION OPERATOR CHIEF by Armin Zheng D.O.
[2024-09-17 01:03] LABS: Basophils Absolute Auto 0.1 K/mm3 (0.0-0.1); Basophils Percent Auto 0.6 % (0.2-1.2); Eosinophils Absolute Auto 0.3 K/mm3 (0-0.3); Hematocrit 37.1 % (37.0-47.0); Hemoglobin 11.9 g/dL (12.0-15.0); Immature Granulocyte Absolute 0.03 K/mm3 (0.00-0.031); Immature Granulocyte Percent A 0.4 % (0-0.5); Lymphocytes Absolute Auto 1.74 K/mm3 (0.9-3.2); Lymphocytes Percent Auto 21.6 % (18.3-44.2); Mean Corpuscular HGB Conc 32.1 g/dl (32-36); Mean Corpuscular Hemoglobin 29.2 pg (26-34); Mean Corpuscular Volume 90.9 fl (80-100); Mean Platelet Volume 8.9 fl (7.4-10.4); Monocytes Absolute Auto 0.7 K/mm3 (0.1-0.6); Neutrophils Absolute Auto 5.2 K/mm3 (1.3-6.7); Neutrophils Percent Auto 64.4 % (45.5-73.1); Platelet Count Result 271 k/mm3 (150-375); Red Blood Count 4.08 M/mm3 (4.2-5.4); Red Cell Distribution Width 14.2 % (11.5-14.5)
[2024-09-17 01:13] LABS: Alanine Aminotransferase 29 U/L (6-35); Albumin Level 3.9 g/dL (3.5-5.1); Alkaline Phosphatase 102 U/L (38-126); Anion Gap 6 mmol/L (4-12); Aspartate Amino Transferase 27 U/L (14-36); Bilirubin,Total 0.4 mg/dL (0.2-1.3); Blood Urea Nitrogen 11 mg/dL (7-17); Calcium 9.1 mg/dL (8.4-10.2); Carbon Dioxide 29 mmol/L (22-30); Chloride 102 mmol/L (98-107); Estimated Glomerular Filt Rate > 60; Glucose 169 mg/dL (65-110); Lipase 88 U/L (23-300); Potassium 4.3 mmol/L (3.4-5.0); Sodium 137 mmol/L (137-145)
[2024-09-17 01:25] LABS: Partial Thromboplastin Time 30.3 Seconds (22.3-36.8); Prothrombin Time 13.5 Seconds (11.1-14.7); Troponin I < 0.012 ng/mL (0.000-0.034)
--- NOTE | 2024-09-17 04:16 | ED_ITS ---
HPI - SOB/Dyspnea General Chief Complaint: Shortness of Breath/Dyspnea Stated Complaint: LUQ pain and SOB, recent pna and PE Time Seen by Provider: 09/17/24 03:35 History of Present Illness HPI Narrative: 38-year-old female with a past medical history including recently diagnosed bilateral PEs, pneumonia. She was in the hospital several weeks prior and started on Eliquis which he has been taking without any missed dosages. She presents today with a complaint of left-sided lower chest pain and difficulty in breathing. States it feels not very similar to her previous pneumonia or PE. No productive cough, fevers, chills, rigors. No chest pain in the center or right-sided chest. No back pain. Patient was concerned that with her recent significant findings that she needs to be re-evaluated. She otherwise appears well and speaks in full complete sentences. Symptoms started 1-1/2 hours prior to arrival to the emergency department. Related Data Home Medications Medication Instructions Recorded Confirmed duloxetine 60 mg capsule,delayed 60 mg PO DAILY 09/28/19 09/02/24 release lamotrigine 100 mg tablet 200 mg PO DAILY 09/28/19 09/02/24 esomeprazole magnesium 20 mg 20 mg PO BID 10/08/21 09/02/24 capsule,delayed release famotidine 20 mg chewable tablet 20 mg PO Q12H PRN Gastric Reflux 09/02/24 09/02/24 Allergies Allergy/AdvReac Type Severity Reaction Status Date / Time No Known Allergies Allergy Verified 08/08/24 19:47 Review of Systems Review of Systems: As reviewed above in the HPI [facility] Past Medical History Medical History Acid reflux Anxiety Asthma Bipolar 1 disorder Borderline diabetic Carpal tunnel syndrome Depression Dysphagia Eosinophilic esophagitis Esophageal ring Former tobacco use Marijuana abuse Morbid obesity NIDHI (obstructive sleep apnea) Surgical History Surgical History Previous section Family History Family History Mother Hypertension Grandparent Family history of heart disease in male family member before age 55 Cerebrovascular accident Asthma Father Family history of heart disease in male family member before age 55 Social History Social History Social History: Lives with her 2 children, her boyfriend and his son. Rare alcohol use. Tobacco use as mentioned above. No drug use and no hx of IVDU. Smokes marijuana Code status - full Surrogate decision maker; boyfriend and mother Smoking packs per day: 1 Smoking cigarettes per day: 20.0 Years smoked: 18 Smoking pack-years: 18.00 Smoking status: Current every day smoker Tobacco type: e-cigarettes/vaping Smoking end date: 10/26/12 Alcohol intake: former Alcohol use details: FEW DRINKS ONCE MONTHLY Substance use: never Substance use type: marijuana Other substance usage details: USES 3 TIMES/WEEK Do You Feel Safe in your Home?: Yes Lack of Transportation: No Lack of Food: Never True Current Housing: I Have Housing Concerned About Future Housing: No Difficulty Paying Gas/Electric Bills: No Difficulty Paying for Meds: No Currently Unemployed: No Education: High School Diploma/GED Difficulty w/ Childcare or Family Care: No Living arrangements: with family Gender identity (if verbalized by the patient): Female Spiritual care concerns: No Agree to blood products: Yes Exam Narrative: GENERAL: [Well-appearing, well-nourished, and in no acute distress.] HEAD: [Normocephalic, atraumatic.] EYES: [PERRLA and EOMI.] ENT: Nares clear, no rhinorrhea or epistaxis. Mucous membranes moist. NECK: Supple. CHEST: [Clear to auscultation. No respiratory distress.] HEART: [Regular rate and rhythm]. No murmur heard. [Normal peripheral pulses.] ABDOMEN: [Soft, nondistended], [nontender], [No rigidity or guarding] EXTREMITIES: Normal range of motion. [No edema.] SKIN: Warm, dry, no rash. NEURO: [No focal deficits]. Alert and oriented [x3.] PSYCH: [Normal mood and affect.] Course Vital Signs Vital signs: Vital Signs Temperature 36.6 C 09/17/24 00:35 Pulse Rate 127 H 09/17/24 00:35 Respiratory Rate 20 09/17/24 00:35 Blood Pressure 182/98 H 09/17/24 00:35 Pulse Oximetry 97 09/17/24 00:35 Oxygen Delivery Room Air 09/17/24 00:35 Temperature 36.6 C 09/17/24 00:35 Pulse Rate 127 H 09/17/24 00:35 Respiratory Rate 20 09/17/24 00:35 Blood Pressure 182/98 H 09/17/24 00:35 Pulse Oximetry 97 09/17/24 00:35 Oxygen Delivery Room Air 09/17/24 00:35 MDM - SOB/Dyspnea MDM Narrative Medical decision making narrative: 38-year-old female with history of recently diagnosed bilateral PEs and pneumonia. She was in the hospital several weeks prior for treatment of this and was discharged home on Eliquis. She states that she has been doing well, taking her medications as prescribed. Today she noticed that she had some difficulty in breathing and left-sided chest discomfort. Patient is awake alert oriented, not having any acute difficulty in breathing or dyspnea. vital signs initially showed some elevated blood pressure and tachycardia. Blood pressure 182/90 80 and tachycardic pulse 127. No fever or hypoxia. This blood pressure and pulse normalized while here in the emergency department. Presently she has a blood pressure in the 160s and a heart rate in the 98. Maintaining 97% saturation on room air. Patient politely declined any analgesia she states the pain in her left side of the chest only hurts when she breathes. Not exacerbated by any movement. Differential diagnosis does include persistent pulmonary embolism, worsening clot burden, postobstructive pneumonia, recurrence of her pneumonia, other intrathoracic process. Low suspicion ACS or any aortic process at this time. CBC, CMP, troponin, EKG, chest x-ray and CT angiography of her chest was order ed. Laboratory studies showed no leukocytosis or significant anemia. Normal platelets. Normal electrolyte profile, normal renal and hepatic function panel. Negative troponin. Negative lipase. CT scan interpreted by stat read shows no evidence of acute main or proximal central pulmonary embolisms, respiratory motion limits evaluation of the subsegmental branches. Improving bibasilar pulmonary infiltrates, no effusion or pneumothorax. Patient was re-evaluated, had persistently improved vitals and no longer tachycardic. Never been hypoxic here in the ED. Her pain has resolved. Given the reassuring CT angiography and that she is still on her Eliquis without any mass dosages I believe she is stable for discharge home given her unremarkable workup, normal troponin, negative EKG and CT scan. Patient was agreeable to this plan of care and will follow up with her outpatient primary care provider or return with any new or worsening concerns. Medical Records Attestation: I reviewed the patient's medical records. Lab Data Attestation: I reviewed the patient's lab results. 09/17/24 00:54 09/17/24 00:54 Labs: Lab Results 09/17/24 Range/Units 00:54 WBC 8.0 (4.5-10.0) K/mm3 RBC 4.08 L (4.2-5.4) M/mm3 Hgb 11.9 L (12.0-15.0) g/dL Hct 37.1 (37.0-47.0) % MCV 90.9 (80-100) fl MCH 29.2 (26-34) pg MCHC 32.1 (32-36) g/dl RDW 14.2 (11.5-14.5) % Plt Count 271 (150-375) k/mm3 MPV 8.9 (7.4-10.4) fl Immature Gran % (Auto) 0.4 (0-0.5) % Neut % (Auto) 64.4 (45.5-73.1) % Lymph % (Auto) 21.6 (18.3-44.2) % [place] % (Auto) 9.0 H (2.6-8.5) % Eos % (Auto) 4.0 (0-4.4) % Baso % (Auto) 0.6 (0.2-1.2) % Lymph # (Auto) 1.74 (0.9-3.2) K/mm3 [place] # (Auto) 0.7 H (0.1-0.6) K/mm3 Eos # (Auto) 0.3 (0-0.3) K/mm3 Baso # (Auto) 0.1 (0.0-0.1) K/mm3 Abs Immat Gran (auto) 0.03 (0.00-0.031) K/mm3 Absolute Neuts (auto) 5.2 (1.3-6.7) K/mm3 Absolute Nucleated RBC 0.000 (0.0-0.012) K/mm3 Nucleated RBC % 0.0 (0.0-0.2) % PT 13.5 (11.1-14.7) Seconds INR 1.0 APTT 30.3 (22.3-36.8) Seconds Sodium 137 (137-145) mmol/L Potassium 4.3 (3.4-5.0) mmol/L Chloride 102 (98-107) mmol/L Carbon Dioxide 29 (22-30) mmol/L Anion Gap 6 (4-12) mmol/L BUN 11 (7-17) mg/dL Creatinine 0.80 (0.7-1.0) mg/dL Estim Creat Clear Calc Not Reportable Estimated GFR > 60 (59 - ) Glucose 169 H (65-110) mg/dL Calcium 9.1 (8.4-10.2) mg/dL Total Bilirubin 0.4 (0.2-1.3) mg/dL AST 27 (14-36) U/L ALT 29 (6-35) U/L Alkaline Phosphatase 102 (38-126) U/L Troponin I < 0.012 (0.000-0.034) ng/mL Total Protein 8.0 (6.3-8.2) g/dL Albumin 3.9 (3.5-5.1) g/dL Lipase 88 (23-300) U/L Imaging Data Attestation: I personally reviewed and interpreted this imaging study as follows: My impression: No large pulmonary embolism or dissection seen. No infiltrates, pneumonia or pneumothorax. Radiologist's impression: CT scan interpreted by stat read shows no evidence of acute main or proximal central pulmonary embolisms, respiratory motion limits evaluation of the subsegmental branches. Improving bibasilar pulmonary infiltrates, no effusion or pneumothorax ECG Data EKG #1: Attestation: I personally reviewed and interpreted this ECG as follows: ECG completion date: 09/17/24 ECG completion time: 00:48 Prior ECG tracings: available for review Interpretation: Tachycardic pulse with a rate of 109, normal QRS 102, QTC normal at 400, [place] interval normal 136. Normal rhythm an axis. No ST segment elevations, depressions or inversions. No acute interval changes compared to her previous EKG from the 7th of this month. No signs of acute ischemia. Normal intervals. Sinus tachycardia final impression. Discharge Plan Discharge Clinical Impression: Shortness of breath, Chest pain Patient Disposition: Home, Self-Care Condition: Stable Instructions: Antibiotic Form, Dyspnea (ED) Additional Instructions: your laboratory studies in cardiac workup were reassuring, her CT scan shows no acute concerning findings. Continue taking her medications including her Eliquis on outpatient basis. Return with any new or worsening concerns at a time but please follow-up with your primary care provider outpatient. Prescriptions: No Action albuterol sulfate 90 mcg/actuation HFA aerosol inhaler 2 puff inhalation QID PRN (Reason: shortness of breath or wheezing) Qty: 6.7 0RF duloxetine 60 mg capsule,delayed release(DR/EC) 60 mg PO DAILY lamotrigine 100 mg tablet 200 mg PO DAILY esomeprazole magnesium 20 mg capsule,delayed release(DR/EC) 20 mg PO BID famotidine 20 mg Tablet,Chewable 20 mg PO Q12H PRN (Reason: Gastric Reflux) prednisone 20 mg Tablet 40 mg PO DAILY@0800 3 Days Qty: 6 0RF azithromycin 250 mg tablet 250 mg PO HS 3 Days Qty: 3 0RF amoxicillin-pot clavulanate 875-125 mg tablet 1 tablet PO Q12H 5 Days Qty: 10 0RF Eliquis DVT-PE Treat 30D Start 5 mg (74 tabs) tablets,dose pack See Rx Instructions .ROUTE .COMPLEX Qty: 74 0RF Rx Instructions: orally per package directions albuterol sulfate 0.63 mg/3 mL solution for nebulization 0.63 mg inhalation Q6H PRN (Reason: Shortness Of Breath) Qty: 75 0RF Follow-up/Referrals: PHYSICIAN NOT ON STAFF,NONSTAFF [Primary Care Provider] - Time of Disposition: 05:23
== END 2024-09-17 05:27 | disposition home or self-care (01) ==
PROVIDERS: Emergency Provider Student in an Organized Health Care Education/Training Program
DX: R07.9 Chest pain, unspecified (principal); R06.02 Shortness of breath; J45.909 Unspecified asthma, uncomplicated; E66.01 Morbid (severe) obesity due to excess calories; K21.00 Gastro-esophageal reflux disease with esophagitis, without bleeding; G47.33 Obstructive sleep apnea (adult) (pediatric); R73.03 Prediabetes; Z86.711 Personal history of pulmonary embolism; Z87.01 Personal history of pneumonia (recurrent); Z87.891 Personal history of nicotine dependence; Z79.01 Long term (current) use of anticoagulants; R00.0 Tachycardia, unspecified; R94.31 Abnormal electrocardiogram [ECG] [EKG]
CPT/HCPCS: 36415; 71045; 71275; 80053; 83690; 84484; 85025; 85610; 85730; 93005; 99284; Q9967

== ENCOUNTER 2024-12-16 09:58 | Outpatient (CLI) | payer OTHER, SELFPAY ==
--- OUTSIDE RECORDS SUMMARY | 2024-12-16 10:37 | XMS_ITS ---
Author Organization [facility] Address [address] [place] [address] Care Team Providers Care Board Turner Name Role Phone Alethea Eugene Primary Care Provider Allergies Allergen (clinical drug ingredient) Drug/Non Drug Allergy documented on EMR Reaction Allergy Type Onset Date Status No Known Drug Allergy Unknown Drug Allergy Active REASON FOR VISIT 4 week F/U Medications Medication SIG (Take, Route, Frequency, Duration) Notes Start Date End Date Status Omeprazole 40 MG 1 capsule 30 minutes before morning meal Orally Once a day for 30 day(s) dose uncertain Active Vitamin D 50 MCG (2000 UT) 1 tablet Orally Once a day for 30 day(s) dose uncertain Active Albuterol Sulfate 108 (90 Base) MCG/ACT 1 puff as needed Inhalation Active Mirena Active Sertraline HCl 50 MG 1 tablet Orally Onc e a day for 30 days Active LaMICtal 200 MG 1 tablet Orally Once a day for 30 days Active Social History Sex Assigned At : Social History Observation Description Sex Assigned At Female Section Notes: - - - - - - - - - - - - ADDITIONAL SOCIAL HISTORY 08/31/2024: - - - - - - - - - - - - Past medication trials Lexapro, Zoloft, Prozac, Abilify (causes patient to be emotional), Wellbutrin, Trileptal, Strattera, Effexor, Seroquel, duloxetine Family history of mental health disorders Depression Bipolar Hospitalizations as teen 1 week- no SI Suicide attempts occasional thoughts no plan Therapy history many providers, good in mid 20's [facility] Poor related to weight and LBP, knees Sees PCP Recent Labs A1C 6.3, HTN CHI/ SZ / Major Injuries none Trauma - was first to find dad of 2016 Relationships lives with boyfriend Children Phillip 13 Vamsi 12 Education some college 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 Living arrangements / How is home - lives with DODIE, her son and her two sons Substance use history/ current: none Alcohol none Nicotine none quit in 10 + years Legal history: none : none - - - - - - - - - - - - Encounters Encounter Location Date Provider Diagnosis [address] [place] [address] 10/10/2024 Alethea Valorie Bipolar 1 disorder F31.9 ; Generalized anxiety disorder F41.1 ; Therapeutic drug monitoring Z51.81 and Nicotine dependence, unspecified, uncomplicated F17.200 Assessments Encounter Date Diagnosis (ICD Code) Assessment Notes Treatment Notes Treatment Clinical Notes Section Notes 10/10/2024 Bipolar 1 disorder (ICD-10 - F31.9) 10/10/2024 Generalized anxiety disorder (ICD-10 - F41.1) 10/10/2024 Therapeutic drug monitoring (ICD-10 - Z51.81) May self-administer medications or be administered own oral medications per [facility] protocols. Provided informed consent with understanding of side effects, adverse effects, risks and benefits as well as alternative treatments as previously discussed and with the above recommended medications & other aspects of the treatment program. Agrees to return sooner if symptoms worsen or suicidal or homicidal ideations occur. 10/10/2024 Nicotine dependence, unspecified, uncomplicated (ICD-10 - F17.200) Plan Of Treatment Medication Medication Name Sig Start Date Stop Date Notes Sertraline HCl 50 MG 1 tablet Orally Onc e a day for 30 days LaMICtal 200 MG 1 tablet Orally Once a day for 30 days Treatment Notes Assessment Notes Therapeutic drug monitoring May self-adm inister medications or be administered own oral medications per [facility] protocols. Provided informed consent with understanding of side effects, adverse effects, risks and benefits as well as alternative treatments as previously discussed and with the above recommended medications & other aspects of the treatment program. Agrees to return sooner if symptoms worsen or suicidal or homicidal ideations occur. 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 Subjective: * Chief Complaints: * 4 week F/U * HPI: D epression Screening: PHQ-9 L ittle interest or pleasure in doing things?Several days F eeling down, depressed, or hopeless S everal days T rouble falling or staying asleep, or sleeping too much N ot at all F eeling tired or having little energy S everal days P oor appetite or overeating S everal F eeling bad about yourself or that you are a failure, or have let yourself or your family down S everal T rouble concentrating on things, such as reading the newspaper or watching television S ever M oving or speaking so slowly that other people could have noticed; or the opposite, being so fidgety or restless that you have been moving around a lot more than usual N ot at all T houghts that you would be better off or of hurting yourself in some way N ot at all T otal Score 6 I nterpretation M ild Depression S creening: [place] Suicide Severity Rating Scale (LF) D o you want to initiate with S creener form I nterpretation: L ow Risk 6 . Suicide Behaviour: Have you ever done anything,started to do anything, or prepared to end your life? N o 2 . Suicidal Thoughts: Have you actually had any thoughts of killing yourself? N o 1 . Wish to be : Have you wished you were or wished you could go to sleep and not wake up? N o C SSRS Interpretation and Follow Up Plan: CSSRS Interpretation and Follow Up Plan C SSRS Screen documented using SF Y es M oderate or High risk requires selection of a follow up plan C SSRS No/Low: intervention not needed at this time P sych F/U: 38-year-old female client presents for follow-up psychiatric and medication management appointment. Client is being followed for the management of bipolar 1 disorder, NUNO, and nicotine use disorder. Her biggest struggle right now is with the generalized anxiety. She has been a client of [facility] since April 2021. She lives with her boyfriend, his son, and her two sons. 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 Client is amenable to appointment today. The patient, Sonia, has been transitioning from the medication Duloxetine to Sertraline. The process was delayed due to a significant medical event. At the beginning of August, the patient was admitted to the hospital for pneumonia and two pulmonary embolisms in her lungs. This required her to be put on a round of blood thinners, which she has just completed. The patient reports no side effects from the medication transition. However, she is unsure of any mood changes due to her recent medical issues. She rates her depression at a 2/10 and her anxiety at a 3/10. She also reports some anger and irritability which she rates at 6/10. R eports good sleep and appetite without report of nightmares. D enies suicidal or homicidal ideation. N o reports or observations of psychotic symptoms/behaviors, manic behaviors, obsessive/compulsive behaviors or trauma/PTSD. In terms of lifestyle changes, the patient has quit vaping since her hospital admission. D enies any other substance use. S he is not currently undergoing any therapy. * ROS: P sych ROS: Constitutional A ll systems negative unless indicated otherwise. O besity.. R espiratory H x of Asthma. C ardiovascular D enies problems. G I D enies problems. M usculoskeletal D enies problems. N eurological D enies problems/concerns. E ndocrine H x of Pre-Diabetes. P sych D enies SI/HI/AH/VH,Reports depression/anxiety,Reports anger/irritability. * Medical History: * Surgical History: 2 c-sections * Hospitalization/Major Diagno stic Procedure: h ospitalized for 1 week during adol.- psych * Family History: F ather: . M other: alive. 2 sister(s) - healthy. 2 son(s) - healthy. . Mother: Depression Father: HEart Disease 2 kids boys: asthma. * Social History: P rimary Social History: L iving Arrangement L iving Arrangement: I ndependent Living patient lives with boyfriend, 2 sons, 1 step-son I s this a supportive environment? Y es Alcohol Use A lcohol Use Frequency: M onthly or less Illicit Substance Usage I llicit Substance Usage: Y es S ubstance Used: C annabis I nterested in quitting: N o - - - - - - - - - - - - ADDITIONAL SOCIAL HISTORY 08/31/2024: - - - - - - - - - - - - Past medication trials Lexapro, Zoloft, Prozac, Abilify (causes patient to be emotional), Wellbutrin, Trileptal, Strattera, Effexor, Seroquel, duloxetine F amily history of mental health disorders Depression Bipolar H ospitalizations as teen 1 week- no SI S uicide attempts occasional thoughts no plan T herapy history many providers, good in mid 20's [facility] Poor related to weight and LBP, knees Sees PCP Recent Labs A1C 6.3, HTN C HI/ SZ / Major Injuries none T rauma - was first to find dad of 2015 R elationships lives with boyfriend C reza Fisher 13 Vamsi 12 E ducation some college C 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 * Medications: T akingLaMICtal 200 MG Tablet 1 tablet Orally Once a day Sertraline HCl 50 MG Tablet 1 tablet Orally Once a day Mirena Albuterol Sulfate 108 (90 Base) MCG/ACT Aerosol Powder Breath Activated 1 puff as needed Inhalation Omeprazole 40 MG Capsule Delayed Release 1 capsule 30 minutes before morning meal Orally Once a day , Notes to Pharmacist: dose uncertainVitamin D 50 MCG (2000 UT) Tablet 1 tablet Orally Once a day , Notes to Pharmacist: dose uncertainTaking LaMICtal 200 MG Tablet 1 tablet Orally Once a day Taking Sertraline HCl 50 MG Tablet 1 tablet Orally Once a day Taking Mirena Taking Albuterol Sulfate 108 (90 Base) MCG/ACT Aerosol Powder Breath Activated 1 puff as needed Inhalation Taking Omeprazole 40 MG Capsule Delayed Release 1 capsule 30 minutes before morning meal Orally Once a day , Notes to Pharmacist: dose uncertainTaking Vitamin D 50 MCG (2000 UT) Tablet 1 tablet Orally Once a day , Notes to Pharmacist: dose uncertainDiscontinuedDULoxetine HCl 40 MG Capsule Delayed Release Sprinkle 1 capsule Orally Once a day Sertraline HCl 25 MG Tablet 1 tablet Orally Once a day Medication List reviewed and reconciled with the patientDiscontinued DULoxetine HCl 40 MG Capsule Delayed Release Sprinkle 1 capsule Orally Once a day Discontinued Sertraline HCl 25 MG Tablet 1 tablet Orally Once a day Medication List reviewed and reconciled with the patient * Allergies: N o Known Drug Allergyno[Allergies Verified] Objective: * Vitals: Unable to obtain vital signs due to telehealth visit . * Examination: P sychiatry: APPEARANCE: u nable to assess - telephone appointment. ATTENTION: g ood. ORIENTATION: p erson, place and time. ATTITUDE: c ooperative, pleasant. AFFECT: u nable to assess - telephone appointment, verbally full. MOOD: i rritable. SPEECH: c lear, normal/R/V/R. PSYCHOMOTOR ACTIVITY: u nable to assess - telephone appointment. ABNORMAL BODY MOVEMENTS: u nable to assess - telephone appointment. CURRENT HOMICIDALITY: d enies. CURRENT SUICIDALITY: d enies. THOUGHT PROCESS: l inear, goal-directed. THOUGHT CONTENT: u nremarkable. PERCEPTUAL DISORDERS: n o perceptual disorder noted. INSIGHT: f air. JUDGEMENT: f air. INTELLIGENCE (estimate): a verage. Assessment: * Assessment: 1. B ipolar 1 disorder - F31.9 2 . G eneralized anxiety disorder - F41.1? 3. T herapeutic drug monitoring - Z51.81 4 . N icotine dependence, unspecified, uncomplicated - F17.200 Plan: * Treatment: 2. G eneralized anxiety disorder Refill Sertraline HCl Tablet, 50 MG, 1 tablet, Orally, Once a day, 30 days, 30. 3. T herapeutic drug monitoring Notes: May self-administer medications or be administered own oral medications per [facility] protocols. Provided informed consent with understanding of side effects, adverse effects, risks and benefits as well as alternative treatments as previously discussed and with the above recommended medications & other aspects of the treatment program. Agrees to return sooner if symptoms worsen or suicidal or homicidal ideations occur. * Procedure Codes: * Follow Up: 4 Weeks (Reason: Psychiatric Follow-up & Medication Management) * * R ASSEMBLER Sign off status: Completed true * Provider: Yesica Eugene DNP, PHOTOGRAPHY SALES ASSOCIATE, PMHNP- Date: 12/11/2023 Generated for Printing/Faxing/eTransmitting on: 0 12/16/2024 10:37 AM FLOOR ASSEMBLER History and Physical Notes * HPI (History of Present Illness) Category Sub-Category Detail Notes Category Not es Depression Screening PHQ-9 Little inte rest or pleasure in doing things: Several days Feeling down, depressed, or hopeless: Se veral days Trouble falling or staying asleep, or sl eeping too much: Not at all Feeling tired or having little energy: S everal days Poor appetite or overeating: Several day s Feeling bad about yourself o r that you are a failure, or have let yourself or your family down: Several days Trouble concentrating on thi ngs, such as reading the newspaper or watching television: Several days Moving or speaking so slowly that other people could have noticed; or the opposite, being so fidgety or restless that you have been moving around a lot more than usual: Not at all Thoughts that you would be b saleem off or of hurting yourself in some way: Not at all Total Score: 6 Interpretation: Mild Depression Psych F/U 38-year-old female client presents for follow-up psychiatric and medication management appointment. Client is being followed for the management of bipolar 1 disorder, NUNO, and nicotine use disorder. Her biggest struggle right now is with the generalized anxiety. She has been a client of [facility] since April 2021. She lives with her boyfriend, his son, and her two sons. 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 Client is amenable to appointment today. The patient, Sonia, has been transitioning from the medication Duloxetine to Sertraline. The process was delayed due to a significant medical event. At the beginning of August, the patient was admitted to the hospital for pneumonia and two pulmonary embolisms in her lungs. This required her to be put on a round of blood thinners, which she has just completed. The patient reports no side effects from the medication transition. However, she is unsure of any mood changes due to her recent medical issues. She rates her depression at a 2/10 and her anxiety at a 3/10. She also reports some anger and irritability which she rates at 6/10. Reports good sleep and appetite without report of nightmares. Denies suicidal or homicidal ideation. No reports or observations of psychotic symptoms/behaviors, manic behaviors, obsessive/compulsive behaviors or trauma/PTSD. In terms of lifestyle changes, the patient has quit vaping since her hospital admission. Denies any other substance use. She is not currently undergoing any therapy. Screening [place] Suicide Severity Rating Scale (LF) Do you want to initiate with: Screener form Interpretation:: Low Risk 6. Suicide Behavior Question: Have you ever done anything,started to do anything, or prepared to end your life?: No 2. Suicidal Thoughts: Have you actually had any thoughts of killing yourself?: No 1. Wish to be : Have you wished you were or wished you could go to sleep and not wake up?: No Do Not Use CSSRS Interpretation and Follow Up Plan CSSRS Interpretation and Follow Up Plan CSSRS Screen documented using SF: Yes Moderate or High risk requir es selection of a follow up plan: CSSRS No/Low: intervention not needed at this time Examination Category Sub-Category Detail Notes Category Not es Psychiatry APPEARANCE: unable to assess - telephone appointment ATTITUDE: cooperative, pleasan t PSYCHOMOTOR ACTIVITY: unable to assess - telephone appointment ABNORMAL BODY MOVEMENTS: unable to asses s - telephone appointment ATTENTION: good ORIENTATION: person, place and ti me AFFECT: unable to assess - t elephone appointment, verbally full MOOD: irritable SPEECH: clear, normal/R/V/R INSIGHT: fair JUDGEMENT: fair THOUGHT PROCESS: linear, goal-directe d THOUGHT CONTENT: unremarkable PERCEPTUAL DISORDERS: no perceptual diso rder noted CURRENT SUICIDALITY: denies CURRENT HOMICIDALITY: denies INTELLIGENCE (estimate): average
--- OUTSIDE RECORDS SUMMARY | 2024-12-16 10:37 | XMS_ITS | Patient Health Record ---
Author Organization [facility] Address [address] [place] [address] Care Team Providers Care Vp Strategic Partnerships Name Role Phone Alethea Eugene Primary Care Provider [phone] Elayne Gilbert Unavailable [phone] Allergies Allergen (clinical drug ingredient) Drug/Non Drug Allergy documented on EMR Reaction Allergy Type Onset Date Status No Known Drug Allergy Unknown Drug Allergy Active Reason For Referral No Information Medications Medication SIG (Take, Route, Frequency, Duration) Notes Start Date End Date Status Sertraline HCl 50 MG 1 tablet Orally Onc e a day for 30 days Active Omeprazole 40 MG 1 capsule 30 minutes before morning meal Orally Once a day for 30 day(s) dose uncertain Active Vitamin D 50 MCG (2000 UT) 1 tablet Orally Once a day for 30 day(s) dose uncertain Active LaMICtal 200 MG 1 tablet Orally Once a day for 30 days Active Albuterol Sulfate 108 (90 Base) MCG/ACT 1 puff as needed Inhalation Active Mirena Active Social History Tobacco Use: Social History Observation Description Date Details (start date - stop date) Current Smoker NA - NA Sex Assigned At : Social History Observation Description Sex Assigned At Female Dont use, Tobacco Use/Smoking Question Answer Notes Are you a current smoker When did you start smoking? 10/26/2022 How often do you smoke cigarettes? every day Are you interested in quitting? 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 Living arrangements / How is home - [...] Therapy history many providers, good in mid [facility] Poor related to weight and LBP, knees Sees PCP Recent Labs A1C 6.3, HTN CHI/ SZ / Major Injuries none Trauma - was first to find dad of 2015 Relationships lives with boyfriend Children Phillip 13 [place] 12 Education some college 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 Living arrangements / How is home - lives with DODIE, her son and her two sons Substance use history/ current: none Alcohol none Nicotine none quit in 10 + years Legal history: none : none - - - - - - - - - - - - Problems Problem Type SNOMED Code ICD Code Onset Dates Problem Status W/U Status Risk Notes Problem Tobacco user (317494359) Nicotine dependence, unspecified, uncomplicated (F17.200) Active confirmed Problem Generalized anxiety disorder (44448365) Generalized anxiety disorder (F41.1) Active confirmed Problem Bipolar 1 disorder (102501884) Bipolar 1 disorder (F31.9) Active confirmed Problem 43900629 Bipolar 1 disorder with moderate keegan (F31.12) Active confirmed Problem Drug monitoring done (172304098) Therapeutic drug monitoring (Z51.81) Active confirmed Problem Impaired concentration (7542829397) Impaired concentration (R41.840) Active confirmed Encounters Encounter Location Date Provider Diagnosis [address] [address] 12/25/2023 Elaynefarhan Gilbert Bipolar 1 disorder F31.9 and Generalized anxiety disorder F41.[address] [address] 04/07/2024 Elaynefarhan Gilbert Generalized anxiety disorder F41.1 and Bipolar 1 disorder F31.[address] [address] 08/25/2024 Alethea Eugene Generalized anxiety disorder F41.[address] [address] 08/29/2024 Alethea Eugene Bipolar 1 disorder F31.9 and Generalized anxiety disorder F41.[address] [address] 08/31/2024 Alethealea Eugene [address] [address] 09/01/2024 Alethea Eugene Generalized anxiety disorder F41.[address] [address] 10/11/2024 Alethea Eugene Bipolar 1 disorder F31.9 and Generalized anxiety disorder F41.[address] [address] 01/05/2024 Elayne Vladimir Bipolar 1 disorder F31.9 ; Generalized anxiety disorder F41.1 ; Impaired concentration R41.840 ; Nicotine dependence, unspecified, uncomplicated F17.200 and Therapeutic drug monitoring Z51.[address] [address] 04/15/2024 Elayne Gilbert Bipolar 1 disorder F31.9 ; Generalized anxiety disorder F41.1 ; Impaired concentration R41.840 and Therapeutic drug monitoring Z51.[address] [facility] [address] 08/31/2024 Alethea Eugene Bipolar 1 disorder F31.9 ; Generalized anxiety disorder F41.1 ; Therapeutic drug monitoring Z51.81 and Nicotine dependence, unspecified, uncomplicated F17.[address] [place] [address] 10/10/2024 Alethea Sabblcandelario Bipolar 1 disorder F31.9 ; Generalized anxiety disorder F41.1 ; Therapeutic drug monitoring Z51.81 and Nicotine dependence, unspecified, uncomplicated F17.200 Assessments Encounter Date Diagnosis (ICD Code) Assessment Notes Treatment Notes Treatment Clinical Notes Section Notes 08/25/2024 Generalized anxiety disorder (ICD-10 - F41.1) 08/31/2024 Bipolar 1 disorder (ICD-10 - F31.9) 10/11/2024 Bipolar 1 disorder (ICD-10 - F31.9) 10/10/2024 Bipolar 1 disorder (ICD-10 - F31.9) 09/01/2024 Generalized anxiety disorder (ICD-10 - F41.1) 08/29/2024 Bipolar 1 disorder (ICD-10 - F31.9) 04/15/2024 Bipolar 1 disorder (ICD-10 - F31.9) . Pt reports that her moods are stable at this time and she is tolerating meds well; pt denies side effects to medications. pt denies therapy referral at this time. Routine labs ordered at this time; labs were ordered at last visit but not obtained. 04/07/2024 Generalized anxiety disorder (ICD-10 - F41.1) 01/05/2024 Bipolar 1 disorder (ICD-10 - F31.9) . Pt reports that her moods are stable at this time and she is tolerating meds well; pt denies side effects to medications. pt denies therapy referral at this time. Routine labs ordered at this time. Pt reports that she quit taking the Seroquel months ago and does not want to restart at this time. 12/25/2023 Bipolar 1 disorder (ICD-10 - F31.9) 12/25/2023 Generalized anxiety disorder (ICD-10 - F41.1) 01/05/2024 Generalized anxiety disorder (ICD-10 - F41.1) Pt reports that she is tolerating meds well; Denies SI/HI at this time. Denies side effects at this time. Denies SI/HI at this time. 04/07/2024 Bipolar 1 disorder (ICD-10 - F31.9) 10/10/2024 Generalized anxiety disorder (ICD-10 - F41.1) 04/15/2024 Generalized anxiety disorder (ICD-10 - F41.1) Pt reports that she is tolerating meds well; Denies SI/HI at this time. Denies side effects at this time. Denies SI/HI at this time. 08/29/2024 Generalized anxiety disorder (ICD-10 - F41.1) 08/31/2024 Generalized anxiety disorder (ICD-10 - F41.1) Cross taper from duloxetine to sertraline: Week 1 - duloxetine 40 mg, sertraline 25 mgWeek 1 - duloxetine 20 mg, sertraline 50 mgWeek 3 - stop duloxetine, sertraline 50 mg 10/11/2024 Generalized anxiety disorder (ICD-10 - F41.1) 08/31/2024 Therapeutic drug monitoring (ICD-10 - Z51.81) May self-administer medications or be administered own oral medications per [facility] protocols. Provided informed consent with understanding of side effects, adverse effects, risks and benefits as well as alternative treatments as previously discussed and with the above recommended medications & other aspects of the treatment program. Agrees to return sooner if symptoms worsen or suicidal or homicidal ideations occur. Labs were ordered a last two appontments but were never obtained. 10/10/2024 Therapeutic drug monitoring (ICD-10 - Z51.81) May self-administer medications or be administered own oral medications per [facility] protocols. Provided informed consent with understanding of side effects, adverse effects, risks and benefits as well as alternative treatments as previously discussed and with the above recommended medications & other aspects of the treatment program. Agrees to return sooner if symptoms worsen or suicidal or homicidal ideations occur. 04/15/2024 Impaired concentration (ICD-10 - R41.840) 01/05/2024 Impaired concentration (ICD-10 - R41.840) 01/05/2024 Nicotine dependence, unspecified, uncomplicated (ICD-10 - F17.200) 04/15/2024 Therapeutic drug monitoring (ICD-10 - Z51.81) 08/31/2024 Nicotine dependence, unspecified, uncomplicated (ICD-10 - F17.200) 10/10/2024 Nicotine dependence, unspecified, uncomplicated (ICD-10 - F17.200) 01/05/2024 Therapeutic drug monitoring (ICD-10 - Z51.81) 04/15/2024 Other Discussed treat ment planDiscussed sleep hygiene and caffeine intakeReturn to clinic 8 weeksRoutine labs ordered at this time. Encouraged counselingDiscussed treatment plan; patient is agreeable and accepting of treatment plan. Patient denies further questions or concerns at this time. The Patient/Guardian asked appropriate questions, appeared to understand the answers, and decided to accept the treatment and continue being followed.The Patient/Guardian is aware of the need to contact the office or return for an earlier appointment if any problems or concerns arise. May also contact the 24-hour crisis hotline ([facility]), refer to the closest emergency room or call 911 if new symptoms arise of existing symptoms worsen; the Patient/Guardian is aware that this would apply to symptoms such as: suicidal ideation, homicidal ideation, high risk behaviors, manic symptoms, psychotic symptoms, physical symptoms, or any other symptoms that may be dangerous to self or others. 01/05/2024 Other Discussed treat ment planDiscussed sleep hygiene and caffeine intakeReturn to clinic 4 weeksRoutine labs ordered Encouraged counselingDiscussed treatment plan; patient is agreeable and accepting of treatment plan. Patient denies further questions or concerns at this time. The Patient/Guardian asked appropriate questions, appeared to understand the answers, and decided to accept the treatment and continue being followed.The Patient/Guardian is aware of the need to contact the office or return for an earlier appointment if any problems or concerns arise. May also contact the 24-hour crisis hotline ([facility]), refer to the closest emergency room or call 911 if new symptoms arise of existing symptoms worsen; the Patient/Guardian is aware that this would apply to symptoms such as: suicidal ideation, homicidal ideation, high risk behaviors, manic symptoms, psychotic symptoms, physical symptoms, or any other symptoms that may be dangerous to self or others. Plan Of Treatment Future Test Test Name Order Date Test, Urine 04/29/2023 12 Panel Urine Drug Screen 04/29/2023 Insurance Providers Payer Name Payer Address Payer Phone Subscriber Number Group Number Insured Name Patient Relationship to Insured Coverage Start Date Coverage End Date [employer] [address] [place] [address] [id number] Yi Mendiola Self - patient is the insured 1 3 [employer] [address] [place] [address] [id number] Yi Mendiola Self - patient is the insured 1 3 [address]ID [address] [place] [address] [id number] Yi Mendiola Self - patient is the insured 4 4 [facility] [employer] [address] [place] [address] [id number] Yi Mendiola Self - patient is the insured 4 Medical (General) History Medical History History ICD Code Pre-Diabetic Elevated HR Asthma Surgical History Surgery Date(Month/Year) 2 c-sections Hospitalization History Reason Date(Month/Year) hospitalized for 1 week during adol.- ps nidia
--- OUTSIDE RECORDS SUMMARY | 2024-12-16 10:37 | XMS_ITS | Clinical Summary ---
Author Organization [facility] Address [address] [place] [address] Phone Care Team Providers Care Tar Heat Exchanger Cleaner Name Role Phone Unavailable Primary Care Provider Unavailabl e Social History Tobacco Use Types Packs/Day Years Used Date Smoking Tobacco: Never Assessed Comments Unknown Sex and Gender Information Value Date Recorded Sex Assigned at Not on file Legal Sex Female 10:40 PM CDT Gender Identity Not on file Sexual Orientation Not on file Plan of Treatment Health Maintenance Due Date Last Done Comments Hepatitis C Virus (HCV) Screening 1987 Pap Smear 2008 Cervical Cancer Screening (CCS) 2017 HPV/Cotest 2017 Influenza Immunization (#1) 06/26/202408/26, 08/06/2020, 08/08/2019, Additional history exists SARS-COV-2 Immunization ( season) 2024 10/15/2021, 12/28/2020, 11/30/2020 Respiratory Syncytial Virus (RSV) Immunization (Adult) (1 - 1-dose 75+ series) 2062 Hepatitis B Immunization Completed 999, 10/06/1998, 06/27/1998, Additional history exists DTaP/Tdap/Td Immunization Discontinued 2019, 07/26/2002, 03/05/1993, Additional history exists TdaP Immunization Completed 05/28/2020 Meningococcal Immunization (ACWY) Aged Out No longer eligible based on patient's age to complete this topic Pneumococcal Immunization Combined Aged Out No longer eligible based on patient's age to complete this topic Rotavirus Immunization Aged Out No lo nger eligible based on patient's age to complete this topic
--- OUTSIDE RECORDS SUMMARY | 2024-12-16 10:37 | XMS_ITS | Clinical Summary ---
Author Organization [facility] Address [address] [place] [address] Care Team Providers Care Retail Merchandising Specialist Name Role Phone Unavailable Primary Care Provider Unavailabl e Source Comments [facility],non-owned Affiliates and Associated Physician Practices is amultiple site organization consisting of ambulatory clinics and hospital sitesin [place], [place], [place] and [place]. This disclosure is being madepursuant to the Care Everywhere program and may not contain all information available regarding this patient. Last updated 18.[facility] Allergies No known active allergies Medications * Be aware that medications may not be up to date on this document. Alwaysverify current medications with the patient. Medication Sig Dispensed Refills Start Date End Date Status ALBUTEROL IN Active OMEPRAZOLE PO Active levonorgestrel (MIRENA) 20 MCG/24HR IUD 1 Device by Intrauterine route as directed Active baclofen (LIORESAL) 10 MG tablet baclofen 10 mg tablet A ctive diclofenac sodium EC (VOLTAREN) 50 MG tablet diclofenac sodium 50 mg tablet,delayed release Active DULoxetine (CYMBALTA) 60 MG capsule duloxetine 60 mg capsule,delayed release TAKE 1 CAPSULE BY MOUTH ONCE DAILY Active DULoxetine (CYMBALTA) 30 MG capsule duloxetine 30 mg capsule,delayed release TAKE 1 CAPSULE BY MOUTH ONCE DAILY Active albuterol (PROVENTIL;VENTOLIN ) (2.5 MG/3ML) 0.083% nebulizer solution albuterol sulfate 2.5 mg/3 mL (0.083 %) solution for nebulization Active albuterol HFA (PROVENTIL;VENTOLIN ;PROAIR) 108 (90 Base) MCG/ACT inhaler albuterol sulfate HFA 90 mcg/actuation aerosol inhaler INHALE 2 PUFFS BY MOUTH EVERY 4 HOURS Active lamoTRIgine (LAMICTAL) 100 MG tablet lamotrigine 100 mg tablet Active phentermine (ADIPEX-P) 37.5 MG capsule phentermine 37.5 mg capsule TAKE 1 CAPSULE BY MOUTH ONCE DAILY Active ketorolac (TORADOL) injection 1 mL every 6 hours Active influenza recom ESPINOZA quad (FLUBLOK) 0.5 ML injection Flublok Quad [id number] (PF) 180 mcg (45 mcg x 4)/0.5 mL IM syringe Active Tdap, tetanus-diphtheria- acell pertussis, (BOOSTRIX) 5-2.5-18.5 LF-MCG/0.5 (7y+) injection Boostrix Tdap 2.5 Lf unit-8 mcg-5 Lf/0.5 mL intramuscular syringe ADM 0.5ML IM UTD Active tuberculin PPD (TUBERSOL) 5 UNIT/0.1ML injection 0.1 mL every 24 hours Act darrin Active Problems No known active problems Social History Tobacco Use Types Packs/Day Years Used Date Smoking Tobacco: Never Sex and Gender Information Value Date Recorded Sex Assigned at Not on file Gender Identity Not on file Sexual Orientation Not on file Last Filed Vital Signs Vital Sign Reading Time Taken Comments Blood Pressure 110/76 11/08/2016 10:02 AM ENVIRONMENTAL HEALTH SAFETY MANAGER Pulse 102 11/08/2016 10:02 AM ENVIRONMENTAL HEALTH SAFETY MANAGER Temperature 37 C (98.6 F) 11/08/2016 10:02 AM ENVIRONMENTAL HEALTH SAFETY MANAGER Respiratory Rate 18 11/08/2016 10:02 AM ENVIRONMENTAL HEALTH SAFETY MANAGER Oxygen Saturation 98% 11/08/2016 10:02 AM ENVIRONMENTAL HEALTH SAFETY MANAGER Inhaled Oxygen Concentration - - Weight 113.4 kg (250 lb) 11/08/2016 10:02 AM ENVIRONMENTAL HEALTH SAFETY MANAGER Height 165.1 cm (5' 5 ) 11/08/2016 10:02 AM ENVIRONMENTAL HEALTH SAFETY MANAGER Body Mass Index 41.6 11/08/2016 10:02 AM ENVIRONMENTAL HEALTH SAFETY MANAGER Plan of Treatment Health Maintenance Due Date Last Done Comments PAP SMEAR 1987 HIV SCREENING 2002 HEPATITIS C SCREENING 11/09/2005 DTAP/TDAP/TD VACCINES (1 - Tdap) 2006 HEPATITIS B VACCINE (1 of 3 - 19+ 3-dose series) 2006 COVID-19 VACCINE ( - 2023-2 5 season) 2024 INFLUENZA VACCINE (#1) 2024 09/14/2018 DEPRESSION SCREENING 10/26/2024 ZOSTER VACCINE (1 of 2) 2037 HIB VACCINE Aged Out No longer eligi ble based on patient's age to complete this topic HPV VACCINE Aged Out No longer eligi ble based on patient's age to complete this topic MENINGOCOCCAL (Group B) VACCINE Aged Out No longer eligible based on patient's age to complete this topic MENINGOCOCCAL VACCINE Aged Out No che bulmaro eligible based on patient's age to complete this topic PNEUMOCOCCAL VACCINE Aged Out No long er eligible based on patient's age to complete this topic
--- OUTSIDE RECORDS SUMMARY | 2024-12-16 10:37 | XMS_ITS | Encounter Summary ---
Author Organization [facility] Address [address] [place] [address] Care Team Providers Care Supervisor Steno Pool Name Role Phone Unavailable Primary Care Provider Unavailabl e Encounter Details Date Type Department Care Team (Late st Contact Info) Description 12/14/2002 Outpatient Historical [facility] [address] [place] [address] Óscar Fisher, DO [address] [address] Social History Tobacco Use Types Packs/Day Years Used Date Smoking Tobacco: Never Assessed Comments Unknown Sex and Gender Information Value Date Recorded Sex Assigned at Not on file Legal Sex Female 2:55 AM FISHING ROD MARKER Gender Identity Not on file Sexual Orientation Not on file documented as of this encounter Plan of Treatment Not on file documented as of this encounter Visit Diagnoses Not on filedocumented in this encounter
--- OUTSIDE RECORDS SUMMARY | 2024-12-16 10:37 | XMS_ITS | Clinical Summary ---
Author Organization [facility] Address [address] [place]: Epic Prelude ADT [place] [address] Care Team Providers Care Saw Filer Name Role Phone Unavailable Primary Care Provider Unavailabl e Social History Tobacco Use Types Packs/Day Years Used Date Smoking Tobacco: Never Assessed Comments Unknown Sex and Gender Information Value Date Recorded Sex Assigned at Not on file Legal Sex Female 2:55 AM DEBURRING TECHNICIAN Gender Identity Not on file Sexual Orientation Not on file Plan of Treatment Health Maintenance Due Date Last Done Comments DTAP/TDAP/TD VACCINES (1 - Tdap) 2006 HEPATITIS B VACCINES (1 of 3 - 19+ 3-dose series) 2006 CERVICAL CANCER SCREENING 2017 INFLUENZA VACCINE (#1) 2024 HPV VACCINES Aged Out No longer eligi ble based on patient's age to complete this topic PNEUMOCOCCAL VACCINE 0-64 YEARS Aged Out No longer eligible based on patient's age to complete this topic
--- OUTSIDE RECORDS SUMMARY | 2024-12-16 10:38 | XMS_ITS | Referral Summary ---
Author Organization [facility] Address [address] [address] Care Team Providers Care Aircraft Sales Representative Name Role Phone Unavailable Primary Care Provider Unavailabl e Source Comments [facility],non-owned Affiliates and Associated Physician Practices is amultiple site organization consisting of ambulatory clinics and hospital sitesin [place], [place], [place] and [place]. This disclosure is being madepursuant to the Care Everywhere program and may not contain all information available regarding this patient. Last updated 18.[facility] Allergies No known active allergies Medications * [...] quad (FLUBLOK) 0.5 ML injection Flublok Quad [id number] (PF) 180 mcg (45 mcg x 4)/0.5 [...] Comments Blood Pressure 110/76 11/08/2016 10:02 AM FLOOR POLISHER Pulse 102 11/08/2016 10:02 AM FLOOR POLISHER Temperature 37 C (98.6 F) 11/08/2016 10:02 AM FLOOR POLISHER Respiratory Rate 18 11/08/2016 10:02 AM FLOOR POLISHER Oxygen Saturation 98% 11/08/2016 10:02 AM FLOOR POLISHER Inhaled Oxygen Concentration - - Weight 113.4 kg (250 lb) 11/08/2016 10:02 AM FLOOR POLISHER Height 165.1 cm (5' 5 ) 11/08/2016 10:02 AM FLOOR POLISHER Body Mass Index 41.6 11/08/2016 10:02 AM FLOOR POLISHER Plan of Treatment Not on file
--- OUTSIDE RECORDS SUMMARY | 2024-12-16 10:38 | XMS_ITS ---
Author Organization [facility] Address [address] [place] [address] Care Team Providers Care Staff Development Educator Name Role Phone Alethea Euegne Primary Care Provider REASON FOR VISIT Duloxetine 20 mg Medications Medication SIG (Take, Route, Frequency, Duration) Notes Start Date End Date Status DULoxetine HCl 20 MG 1 capsule Orally Once a day for 7 days part of cross taper from duloxetine to sertraline 08/31/2024 Active Social History Sex Assigned At : Social History Observation Description Sex Assigned At Female Encounters Encounter Location Date Provider Diagnosis [address] [place] [address] 09/01/2024 Alethea Eugene Generalized anxiety disorder F41.1 Assessments Encounter Date Diagnosis (ICD Code) Assessment Notes Treatment Notes Treatment Clinical Notes Section Notes 09/01/2024 Generalized anxiety disorder (ICD-10 - F41.1) Plan Of Treatment Medication Medication Name Sig Start Date Stop Date Notes DULoxetine HCl 20 MG 1 capsule Orally Once a day for 7 days 08/31/2024 part of cross taper from duloxetine to sertraline Progress Notes * Felicitas KEENEB:1985 ([age] yo F)Acc No.[id number]:09/01/2024 Patient: Naomi DANNYYonatana :1985 A ge:38 Y S ex:Female Address:[place], [address] * Refills Start DULoxetine HCl Capsule Delayed Release Particles, 20 MG, Orally, 7 Capsule, 1 capsule, Once a day, 7 days * true * Date: Generated for Mahi hardy/Viraj/Jackiitting on: 0 12/16/2024 10:37 AM DIESEL SERVICE APPRENTICE
--- OUTSIDE RECORDS SUMMARY | 2024-12-16 10:38 | XMS_ITS ---
Author Organization [facility] Address [address] [place] [address] Care Team Providers Care Application Spec Name Role Phone Alethea Eugene Primary Care Provider REASON FOR VISIT refills Medications Medication SIG (Take, Route, Fr equency, Duration) Notes Start Date End Date Status Sertraline HCl 50 MG 1 tablet Orally Onc e a day for 30 days Active LaMICtal 200 MG 1 tablet Orally Once a day for 30 days Active Social History Sex Assigned At : Social History Observation Description Sex Assigned At Female Encounters Encounter Location Date Provider Diagnosis [address] [place] [address] 10/11/2024 Alethea Eugene Bipolar 1 disorder F31.9 and Generalized anxiety disorder F41.1 Assessments Encounter Date Diagnosis (ICD Code) Assessment Notes Treatment Notes Treatment Clinical Notes Section Notes 10/11/2024 Bipolar 1 disorder (ICD-10 - F31.9) 10/11/2024 Generalized anxiety disorder (ICD-10 - F41.1) Plan Of Treatment Medication Medication Name Sig Start Date Stop Date Notes Sertraline HCl 50 MG 1 tablet Orally Onc e a day for 30 days LaMICtal 200 MG 1 tablet Orally Once a day for 30 days Progress Notes * Felicitas KEENEB:1985 ([age] yo F)Acc No.[id number]:10/11/2024 Patient: Yi PRESLEY :1985 A ge:38 Y S ex:Female Address:[place], [address] * Refills Refill LaMICtal Tablet, 200 MG, Orally, 30 Tablet, 1 tablet, Once a day, 30 days, Refills=0 Refill Sertraline HCl Tablet, 50 MG, Orally, 30, 1 tablet, Once a day, 30 days * true * Date: Generated for Mahi hardy/Viraj/Param on: 0 12/16/2024 10:37 AM FILLER ROOM ATTENDANT
--- OUTSIDE RECORDS SUMMARY | 2024-12-16 10:38 | XMS_ITS | Patient Health Summary ---
Author Organization [facility] Address [address] [place] [address] Care Team Providers Care Tutoring Manager Name Role Phone Unavailable Primary Care Provider Unavailabl e Note from [facility],non-owned Affiliates and Associated Physician Practices is amultiple site organization consisting of ambulatory clinics and hospital sitesin [place], [place], [place] and [place]. This disclosure is being madepursuant to the Care Everywhere program and may not contain all information available regarding this patient. Last updated 18.[facility] Allergies No known active allergies Medications * Be aware that medications may not be up to date on this document. Alwaysverify current medications with the patient. * ALBUTEROL IN * OMEPRAZOLE PO * levonorgestrel (MIRENA) 20 MCG/24HR IUD 1 Device by Intrauterine route as directed * baclofen (LIORESAL) 10 MG tablet baclofen 10 mg tablet * diclofenac sodium EC (VOLTAREN) 50 MG tablet diclofenac sodium 50 mg tablet,delayed release * DULoxetine (CYMBALTA) 60 MG capsule duloxetine 60 mg capsule,delayed release TAKE 1 CAPSULE BY MOUTH ONCE DAILY * DULoxetine (CYMBALTA) 30 MG capsule duloxetine 30 mg capsule,delayed release TAKE 1 CAPSULE BY MOUTH ONCE DAILY * albuterol (PROVENTIL;VENTOLIN) (2.5 MG/3ML) 0.083% nebulizer solution albuterol sulfate 2.5 mg/3 mL (0.083 %) solution for nebulization * albuterol HFA (PROVENTIL;VENTOLIN;PROAIR) 108 (90 Base) MCG/ACT inhaler albuterol sulfate HFA 90 mcg/actuation aerosol inhaler INHALE 2 PUFFS BY MOUTH EVERY 4 HOURS * lamoTRIgine (LAMICTAL) 100 MG tablet lamotrigine 100 mg tablet * phentermine (ADIPEX-P) 37.5 MG capsule phentermine 37.5 mg capsule TAKE 1 CAPSULE BY MOUTH ONCE DAILY * ketorolac (TORADOL) injection 1 mL every 6 hours * influenza recom ESPINOZA quad (FLUBLOK) 0.5 ML injection Flublok Quad (PF) 180 mcg (45 mcg x 4)/0.5 mL IM syringe * Tdap, zdkylys-nkccgfnkeg-yhnar pertussis, (BOOSTRIX) 5-2.5-18.5 LF-MCG/0.5 (7y+) injection Boostrix Tdap 2.5 Lf unit-8 mcg-5 Lf/0.5 mL intramuscular syringe ADM 0.5ML IM UTD * tuberculin PPD (TUBERSOL) 5 UNIT/0.1ML injection 0.1 mL every 24 hours Active Problems No known active problems Social History Tobacco Use Types Packs/Day Years Used Date Smoking Tobacco: Never Sex and Gender Information Value Date Recorded Sex Assigned at Not on file Gender Identity Not on file Sexual Orientation Not on file Last Filed Vital Signs Vital Sign Reading Time Taken Comments Blood Pressure 110/76 11/08/2016 10:02 AM STEEL HANGER Pulse 102 11/08/2016 10:02 AM STEEL HANGER Temperature 37 C (98.6 F) 11/08/2016 10:02 AM STEEL HANGER Respiratory Rate 18 11/08/2016 10:02 AM STEEL HANGER Oxygen Saturation 98% 11/08/2016 10:02 AM STEEL HANGER Inhaled Oxygen Concentration - - Weight 113.4 kg (250 lb) 11/08/2016 10:02 AM STEEL HANGER Height 165.1 cm (5' 5 ) 11/08/2016 10:02 AM STEEL HANGER Body Mass Index 41.6 11/08/2016 10:02 AM STEEL HANGER Procedures * XR LUMBAR SPINE 2 OR 3VW(Performed 09/14/2020) Performed for Back pain, unspecified back location, unspecified back pain laterality, unspecified chronicity * STREP A SCREEN - POINT OF CARE (AMB) STL(Performed 11/08/2016) Performed for Strep throat Results * XR LUMBAR SPINE 2 OR 3VW (09/14/2020 10:35 AM STEEL HANGER) Anatomical Region Laterality Modality Spine Radiographic Enma ging 09/14/2020 10:4 5 AM STEEL HANGER Impressions 09/14/2020 10:46 AM STEEL HANGER IMPRESSION: Mild lower lumbar facet degeneration. This report was electronically signed by MARINO MACHADO MD on 09/14/2020 10:46 AM . Narrative 09/14/2020 10:46 AM STEEL HANGER Exam: XR LUMBAR SPINE 2 view History: M54.9: Back pain, unspecified back location, unspecified back pain laterality, unspecified chronicity Comparison: None. Findings: The lordosis is normal. No fracture or subluxation is present. The intervertebral disc spaces are normal. There is mild facet sclerosis in the lower lumbar spine. Procedure Note Marino Machado MD - 09/14/2020 Exam: XR LUMBAR SPINE 2 view History: M54.9: Back pain, unspecified back location, unspecified back pain laterality, unspecified chronicity Comparison: None. Findings: The lordosis is normal. No fracture or subluxation is present. The intervertebral disc spaces are normal. There is mild facet sclerosis in the lower lumbar spine. IMPRESSION: Mild lower lumbar facet degeneration. This report was electronically signed by MARINO MACHADO MD on 09/14/2020 10:46 AM . 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
--- NOTE | 2024-12-19 13:11 | WPDPFTINT ---
PFT Procedure Performed PFT Procedure Performed Spirometry with Pre/Post Bronchodilator Plethysmography (Lung Vol) Diffusing Cap (DLCO) Flow Vol Loop PFT Interpretation Lung volumes were measured with the body plethysmography method. The diminished expiratory reserve volume is due to obesity. The remaining lung volumes are unremarkable. Spirometry showed normal expiratory flow rates and a normal FEV1 to FVC ratio 72%. Following administration of a bronchodilator there was significant increase in the FEV1. Lung diffusion capacity is within the normal range. The significant response to bronchodilator may indicate underlying obstructive airway disease. Clinical correlation advised Impression: Spirometry, lung volumes, lung diffusion capacity all within the normal range.
--- NOTE | 2024-12-19 13:14 | WPDSIXMINUTE ---
Six Minute Walk Procedure Procedure Performed Pulmonary Stress Test (6 min walk) Six Minute Walk Six Minute Walk: This 6 minute walk test was carried out with the patient breathing ambient air. The baseline pre walk oxyhemoglobin saturation was 97%. The patient walked 335 m with no stops during testing. During the walk the oxyhemoglobin saturation remained in the range of 92% to 95%. Impression: No evidence of oxyhemoglobin desaturation on this testing.
== END 2024-12-16 09:59 | disposition home or self-care (01) ==
LOC: ANHPFT 10:00
PROVIDERS: Visit Provider Internal Medicine Critical Care Medicine
DX: R06.02 Shortness of breath (principal)
CPT/HCPCS: 94060; 94618; 94726; 94729

== ENCOUNTER 2025-08-05 14:58 | Emergency (ER) | payer OTHER, SELFPAY ==
[2025-08-05 15:07] VITALS: BP 138/76; PULSE 121; RESP 20; TEMP 36.7; O2SAT 97
[2025-08-05 16:14] LABS: EDUAAPPEAR Clear; EDUABILI Negative (Negative); EDUABLOOD Negative (Negative); EDUACOLOR1 Yellow; EDUAGLUCOSE Negative (Negative); EDUAKETONE Negative (Negative); EDUALEUKO Negative (Negative); EDUANITRATE Negative (Negative); EDUAPH 6.5; EDUAPROTEIN Negative (Negative); EDUASPGRAVITY 1.005; EDUAUROBILI 0.2
--- NOTE | 2025-08-05 16:19 | ED.GENADULT ---
HPI - General Adult General Chief complaint: Urogenital-Female Stated complaint: chills/at home UTI test came back positive Source: patient Mode of arrival: ambulatory Limitations: no limitations History of Present Illness HPI narrative: Patient presents with concerns that she has a urinary tract infection. She states yesterday she experienced chills. She had recurrent symptoms today. She took tylenol and she experienced sweating thereafter. She denies any urinary symptoms but states she had urinary tract infections in the past when she experienced these symptoms. She denies other infectious symptoms including sore throat, cough, shortness of breath, otalgia, or any wounds. She took a home urinary test that showed she had a UTI so she came in today for treatment. Related Data Home Medications ?Medication ?Instructions ?Recorded ?Confirmed ?Last Taken ?Type lamotrigine 100 mg tablet 200 mg PO DAILY 09/28/19 10/03/24 09/07/21 History esomeprazole magnesium 20 mg 20 mg PO BID 10/08/21 10/03/24 Unknown History capsule,delayed release famotidine 20 mg chewable tablet 20 mg PO Q12H PRN Gastric Reflux 09/02/24 10/03/24 Unknown History sertraline 50 mg tablet 50 mg PO DAILY 10/03/24 10/03/24 Unknown History apixaban 5 mg tablet (Eliquis) mg 08/05/25 Unknown History semaglutide 7 mg tablet (Rybelsus) mg PO 08/05/25 Unknown History Allergies Allergy/AdvReac Type Severity Reaction Status Date / Time No Known Allergies Allergy Verified 08/05/25 15:27 Review of Systems Review of Systems: CONSTITUTIONAL: Reports chills and sweats. Denies fever. EYES: Denies visual changes, redness, or discharge. ENT: Denies rhinorrhea, congestion, sore throat, or otalgia. CARDIOVASCULAR: Denies chest pain, palpitations, or edema. RESPIRATORY: Denies cough or dyspnea. GASTROINTESTINAL: Denies abdominal pain, nausea, vomiting, or diarrhea. GENITOURINARY: Denies dysuria or hematuria. SKIN: Denies rash or itching. MUSCULOSKELETAL: Denies back pain, joint pain, or myalgia. NEUROLOGIC: Denies headache, numbness, dizziness, or weakness. PSYCHIATRIC: Denies anxiety or depression. [facility] Past Medical History Medical History Shortness of Breath Esophageal ring Eosinophilic esophagitis Asthma Dysphagia Marijuana abuse Morbid obesity Borderline diabetic Carpal tunnel syndrome Depression Anxiety Bipolar 1 disorder Acid reflux NIDHI (obstructive sleep apnea) Former tobacco use Surgical History Surgical History Previous section Family History Family History Mother Hypertension Grandparent Family history of heart disease in male family member before age 55 Cerebrovascular accident Asthma Father Family history of heart disease in male family member before age 55 Social History Social History Social History: Lives with her 2 children, her boyfriend and his son. Rare alcohol use. Tobacco use as mentioned above. No drug use and no hx of IVDU. Smokes marijuana Code status - full Surrogate decision maker; boyfriend and mother Smoking packs per day: 1 Smoking cigarettes per day: 20.0 Years smoked: 18 Smoking pack-years: 18.00 Smoking status: Current every day smoker Tobacco type: e-cigarettes/vaping Smoking end date: 10/26/12 Alcohol intake: former Alcohol use details: FEW DRINKS ONCE MONTHLY Substance use: never Substance use type: marijuana Other substance usage details: USES 3 TIMES/WEEK Do You Feel Safe in your Home?: Yes Lack of Transportation: No Lack of Food: Never True Current Housing: I Have Housing Concerned About Future Housing: No Difficulty Paying Gas/Electric Bills: No Difficulty Paying for Meds: No Currently Unemployed: No Education: High School Diploma/GED Difficulty w/ Childcare or Family Care: No Living arrangements: with family Gender identity (if verbalized by the patient): Female Spiritual care concerns: No Agree to blood products: Yes Exam Narrative: GENERAL: Well-appearing, well-nourished, and in no acute distress. HEAD: Normocephalic, atraumatic. EYES: PERRLA and EOMI. ENT: Nares clear, no rhinorrhea or epistaxis. Mucous membranes moist. Oropharynx without tonsillar hypertrophy exudate or other lesions. Bilateral TMs pearly hays nonbulging NECK: Supple. No adenopathy or masses. No carotid bruits or JVD CHEST: Clear to auscultation. No respiratory distress. No wheezes rales or rhonchi HEART: Regular rate and rhythm. No murmur heard. Normal peripheral pulses. ABDOMEN: Soft, nontender, nondistended, normal active bowel sounds. EXTREMITIES: Normal range of motion. No edema. SKIN: Warm, dry, no rash. NEURO: No focal deficits. Alert and oriented x3. PSYCH: Normal mood and affect. Course Course Emergency Course: This is a 39-year-old female who presented for evaluation with concern she may have a urinary tract infection. Her urine today here does not appear to be consistent with a UTI, however she shows me a photo on her phone was taken today with evidence that home test suggested UTI. Will send urine culture. Through shared decision making to proceed with antibiotic therapy. Will discharge with cephalexin. She should follow up with her primary provider and go to the ER for worsening symptoms. Pt in agreement with plan of care. Level of Care: Express Care Visit Vital Signs Vital signs: Vital Signs Temperature 36.7 C 08/05/25 15:07 Pulse Rate 121 H 08/05/25 15:07 Respiratory Rate 08/05/25 15:07 Blood Pressure 138/76 08/05/25 15:07 Pulse Oximetry 97 08/05/25 15:07 Oxygen Delivery Room Air 08/05/25 15:07 Temperature 36.7 C 08/05/25 15:07 Pulse Rate 121 H 08/05/25 15:07 Respiratory Rate 08/05/25 15:07 Blood Pressure 138/76 08/05/25 15:07 Pulse Oximetry 97 08/05/25 15:07 Oxygen Delivery Room Air 08/05/25 15:07 Medical Decision Making Vital Signs Vital Signs: Vital Signs Temperature 36.7 C 08/05/25 15:07 Pulse Rate 121 H 08/05/25 15:07 Respiratory Rate 20 08/05/25 15:07 Blood Pressure 138/76 08/05/25 15:07 Pulse Oximetry 97 08/05/25 15:07 Oxygen Delivery Room Air 08/05/25 15:07 Temperature 36.7 C 08/05/25 15:07 Pulse Rate 121 H 08/05/25 15:07 Respiratory Rate 20 08/05/25 15:07 Blood Pressure 138/76 08/05/25 15:07 Pulse Oximetry 97 08/05/25 15:07 Oxygen Delivery Room Air 08/05/25 15:07 Lab Data Labs: Lab Results 08/05/25 Range/Units 16:11 POC Urine Color Yellow POC Urine Clarity Clear POC Urine pH 6.5 POC Ur Specif [place] 1.005 POC Urine Protein Negative (Negative) POC Ur Glucose (UA) Negative (Negative) POC Urine Ketones Negative (Negative) POC Urine Blood Negative (Negative) POC Urine Nitrite Negative (Negative) POC Urine Bilirubin Negative (Negative) POC Urine Urobilinogen 0.2 POC U Leukocyte Esteras Negative (Negative) Discharge Plan Discharge Clinical Impression: Urinary tract infection Patient Disposition: Home Condition: Stable Instructions: Antibiotic Form, Urinary Tract Infection in Women (ED) Patient Language: Belarusian Prescriptions: New cephalexin 500 mg capsule 500 mg PO Q12H Qty: 14 0RF No Action albuterol sulfate 90 mcg/actuation HFA aerosol inhaler 2 puff inhalation QID PRN (Reason: shortness of breath or wheezing) Qty: 6.7 0RF Eliquis 5 mg tablet Rybelsus 7 mg tablet PO lamotrigine 100 mg tablet 200 mg PO DAILY esomeprazole magnesium 20 mg capsule,delayed release(DR/EC) 20 mg PO BID sertraline 50 mg tablet 50 mg PO DAILY budesonide-formoterol [Symbicort] 160-4.5 mcg/actuation HFA aerosol inhaler 2 puff inhalation Q12H 30 Days Qty: 10.2 5RF ipratropium-albuterol 0.5 mg-3 mg(2.5 mg base)/3 mL solution for nebulization 3 ml inhalation QID PRN (Reason: shortness of breath or wheezing) 30 Days Qty: 180 3RF famotidine 20 mg Tablet,Chewable 20 mg PO Q12H PRN (Reason: Gastric Reflux) Eliquis DVT-PE Treat 30D Start 5 mg (74 tabs) tablets,dose pack See Rx Instructions .ROUTE .COMPLEX Qty: 74 0RF Rx Instructions: orally per package directions albuterol sulfate 0.63 mg/3 mL solution for nebulization 0.63 mg inhalation Q6H PRN (Reason: Shortness Of Breath) Qty: 75 0RF Follow-up/Referrals: Danyel,GOLDY Mehta [Primary Care Provider] Time of Disposition: 16:15
== END 2025-08-05 16:20 | disposition home or self-care (01) ==
PROVIDERS: Emergency Provider Nurse Practitioner; PCP Nurse Practitioner Family
DX: N39.0 Urinary tract infection, site not specified (principal); F17.290 Nicotine dependence, other tobacco product, uncomplicated; F12.90 Cannabis use, unspecified, uncomplicated; K20.0 Eosinophilic esophagitis; J45.909 Unspecified asthma, uncomplicated; E66.01 Morbid (severe) obesity due to excess calories; Z68.43 Body mass index [BMI] 50.0-59.9, adult; K21.9 Gastro-esophageal reflux disease without esophagitis; F31.9 Bipolar disorder, unspecified; F41.9 Anxiety disorder, unspecified; Z79.01 Long term (current) use of anticoagulants
CPT/HCPCS: 81003; 87086; 99213; G0463